=== PATIENT | male | born 1950 | race African-American/Black ===

== ENCOUNTER 2017-09-27 07:51 | Emergency (ER) | payer OTHER ==
[2017-09-27 08:05] VITALS: TEMP 99.1; BMI 38.4
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
[2017-09-27] MEDS ORDERED: SODIUM CHLORIDE 1,000 ML IV ONE (09:32)
[2017-09-27] MEDS ORDERED: MECLIZINE HCL 25 MG TABLET (FP) PO ONE (09:43)
[2017-09-27] MEDS ORDERED: ONDANSETRON 4 MG/2 ML VIAL IVPB ONE (09:43)
[2017-09-27] MEDS ORDERED: ONDANSETRON 4 MG/2 ML VIAL ONE (10:08)
[2017-09-27] MEDS ORDERED: MECLIZINE HCL 25 MG TABLET (FP) ONE (10:08)
[2017-09-27 10:20] LABS: BASO % 0.8 % (0-2.0); EOS % 0.7 % (0-4.5); HEMATOCRIT 38.2 % (35.4-49); HEMOGLOBIN 13.3 GM/dL (11.7-16.9); LYMPH % 22.5 % (8-40); MCH 30.4 pg (25.7-33.7); MCHC 34.8 g/dl (32.0-35.9); MEAN CELL VOLUME 87.4 fl (80-96); MEAN PLT VOLUME 7.5 fl (7.5-11.1); PLATELET COUNT 250 K/MM3 (134-434); RBC 4.37 M/mm3 (4.00-5.60); RDW 17.3 % (11.9-15.9); WHITE BLOOD COUNT 6.8 K/mm3 (4.0-10.0)
[2017-09-27 10:23] LABS: URINE APPEARANCE CLEAR; URINE BILIRUBIN NEGATIVE (<2.0 mg/dL); URINE COLOR LTYELLOW; URINE GLUCOSE (UA) NEGATIVE (NEGATIVE); URINE KETONE NEGATIVE (NEGATIVE); URINE LEUK ESTERASE TRACE (NEGATIVE); URINE NITRITE NEGATIVE (NEGATIVE); URINE PROTEIN NEGATIVE (NEGATIVE); URINE UROBILINOGEN NEGATIVE mg/dL (0.2-1.0)
[2017-09-27 10:40] LABS: ANION GAP 7 (8-16); BILIRUBIN,TOTAL 0.5 mg/dL (0.2-1.0); BLOOD UREA NITROGEN 15 mg/dL (7-18); CALCIUM 8.9 mg/dL (8.5-10.1); CHLORIDE 94 mmol/L (98-107); CO2 32 mmol/L (21-32); CREATININE 1.2 mg/dL (0.7-1.3); GLUCOSE,RANDOM 138 mg/dL (74-106); SGPT/ALT 32 U/L (12-78); SODIUM 133 mmol/L (136-145); TOT PROT 8.5 g/dl (6.4-8.2)
[2017-09-27 10:43] LABS: ALK PHOS 103 U/L (45-117)
[2017-09-27 10:47] LABS: SGOT/AST 36 U/L (15-37)
[2017-09-27 14:01] VITALS: BP 151/88; PULSE 74
--- NOTE | 2017-09-28 09:07 | EKG ---
Test Reason : Blood Pressure : / mmHG Vent. Rate : 071 BPM Atrial Rate : 071 BPM P-R Int : 198 ms QRS Dur : 086 ms QT Int : 410 ms P-R-T Axes : 039 102 072 degrees QTc Int : 445 ms NORMAL SINUS RHYTHM RIGHTWARD AXIS BORDERLINE ECG WHEN COMPARED WITH ECG OF 28-MAY-2014 14:50, NO SIGNIFICANT CHANGE WAS FOUND Confirmed by CARLOS HAMLIN MD ([id number]) on 09/28/2017 9:07:12 AM Referred By: Confirmed By:CARLOS HAMLIN MD
== END 2017-09-27 14:13 | disposition home or self-care (01) ==
LOC: JER 07:51
PROC: 3E033GC Introduction of Other Therapeutic Substance into Peripheral Vein, Percutaneous Approach (ICD-10-PCS; principal; 2017-09-27)
PROC: 3E0337Z Introduction of Electrolytic and Water Balance Substance into Peripheral Vein, Percutaneous Approach (ICD-10-PCS; 2017-09-27)
DX: R42 Dizziness and giddiness (principal); I10 Essential (primary) hypertension; E78.5 Hyperlipidemia, unspecified; N40.0 Benign prostatic hyperplasia without lower urinary tract symptoms; B18.2 Chronic viral hepatitis C; F32.9 Major depressive disorder, single episode, unspecified; D64.9 Anemia, unspecified; J45.909 Unspecified asthma, uncomplicated; E11.9 Type 2 diabetes mellitus without complications; K74.60 Unspecified cirrhosis of liver; F17.210 Nicotine dependence, cigarettes, uncomplicated
CPT/HCPCS: 36415; 70450-TC; 71045-TC-FY; 80053; 81003; 81015; 82550; 82553; 82962; 84484; 85025; 93005; 93010; 99283-25; J7030

== ENCOUNTER 2017-11-09 07:58 | Inpatient (IN) | payer OTHER ==
[2017-11-09 08:13] VITALS: BMI 37.8
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
[2017-11-09] MEDS ORDERED: SODIUM CHLORIDE 0.9% 500 ML INFUS.BAG IV ONE (09:23)
[2017-11-09 10:09] LABS: BASO % 0.9 % (0-2.0); HEMATOCRIT 36.7 % (35.4-49); HEMOGLOBIN 12.3 GM/dL (11.7-16.9); LYMPH % 21.3 % (8-40); MCH 29.8 pg (25.7-33.7); MCHC 33.6 g/dl (32.0-35.9); MEAN CELL VOLUME 88.7 fl (80-96); MEAN PLT VOLUME 7.2 fl (7.5-11.1); MONO % 4.7 % (3.8-10.2); NEUT % 72.1 % (42.8-82.8); PLATELET COUNT 221 K/MM3 (134-434); RBC 4.14 M/mm3 (4.00-5.60); RDW 14.4 % (11.9-15.9); WHITE BLOOD COUNT 6.2 K/mm3 (4.0-10.0)
--- NOTE | 2017-11-09 10:19 | PDOC ---
Attending Attestation - Resident Resident Name: Richmond Andrews - ED Attending Attestation I have performed the following: I have examined & evaluated the patient, The case was reviewed & discussed with the resident, I agree w/resident's findings & plan - HPI HPI: 11/09/17 10:16 [place] 67 year old male, with a significant PMH of hypertension, hyperlipidemia , BPH, hepatitis C, and depression who presents to the emergency department with lightheadedness and dizziness since yesterday. +intermittent hand paresthesias. Has missed his doses of medications including unknown antihypertensives and blood thinner and dilaudid x 2 days since he ran out and pharmacy closed. Noted his blood pressure was high when he measured this morning. Denies cp/sob, weakness. No neck or back pain, no fever or chills or gait instability. No abd pain, n/v/d. 11/09/17 11:31 - Physicial Exam PE: 11/09/17 10:16 NAD, well appearing, MMM, nl conjunctiva, anicteric; neck supple, no JVD or carotid bruit. lungs clear, RRR, abdomen soft nontender. TOTH x4. No peripheral edema. normal color for ethnicity, WWP. Alert, oriented to person time and place. CN II-XII grossly intact. Strength prox and distally 5/5 throughout. decreased sensation to light touch over right hand. TOTH x4. No cerebellar signs, no dysmetria, bilateral finger to nose equal and symmetric. Gait stable, no ataxia. Speech clear. 11/09/17 11:31 - Medical Decision Making 11/09/17 10:17 [place] 67 year old male, with a significant PMH of hypertension, hyperlipidemia , BPH, hepatitis C, and depression who presents to the emergency department with lightheadedness and dizziness since yesterday. Has missed his doses of medications including unknown antihypertensives and blood thinner and dilaudid x 2 days since he ran out and pharmacy closed. Noted his blood pressure was high when he measured this morning. vitals wnl, mild hypertension but relatively asymptomatic. BP mild elevation and dizziness/lightheadedness most consistent with poor eating habits and poor hydration, also missed his usual medications x 2 days including antihypertensive regimen. sx not c/w vertigo, no focal neuro deficits and stable gait w/o ataxia. labs and lytes wnl, trop neg. coags wnl. EKG normal sinus rhythm, no interval abnormalities, narrow QRS, ST and T wave segments and morphology normal. Nonspecific T wave abnormalities in AVL, no contiguous lead changes. CT head neg for bleed, +lacunar infarcts present, new from prior CT scan from 2017. smoking cessation advised, but does sneak outside to smoke despite otherwise noted. admit for neuro eval with sx, stroke/telemetry monitoring, medical management, inpatient workup including MRI/MRA and BP management given poor compliance.. admit to Dr. Arellano service, neuro cs with Dr dias. 11/09/17 11:32 Heart Score/ECG Review - ECG Impressions Comment:: 11/09/17 11:32 EKG normal sinus rhythm, no interval abnormalities, narrow QRS, ST and T wave segments and morphology normal. Nonspecific T wave abnormalities in AVL, no contiguous lead changes.
[2017-11-09 10:28] LABS: INR 1.11 (0.83-1.09); PROTHROMBIN TIME (PATIENT) 12.5 SEC (9.7-13.0)
[2017-11-09 10:31] LABS: ACTIVATED PTT 30.1 SECONDS (25.2-36.5)
[2017-11-09 10:43] LABS: ALBUMIN 3.6 g/dl (3.4-5.0); ALK PHOS 106 U/L (45-117); ANION GAP 9 MMOL/L (8-16); BILIRUBIN,TOTAL 0.5 mg/dL (0.2-1); BLOOD UREA NITROGEN 13 mg/dL (7-18); CALCIUM 8.3 mg/dL (8.5-10.1); CHLORIDE 99 mmol/L (98-107); CO2 26 mmol/L (21-32); CREATININE 1.2 mg/dL (0.55-1.3); GLUCOSE,RANDOM 223 mg/dL (74-106); POTASSIUM 4.8 mmol/L (3.5-5.1); SGOT/AST 37 U/L (15-37); SGPT/ALT 36 U/L (13-61); SODIUM 135 mmol/L (136-145); TOT PROT 7.8 g/dl (6.4-8.2)
[2017-11-09] MEDS ORDERED: QUEtiapine FUMARATE 300 MG TABLET PO ONE (10:54)
[2017-11-09] MEDS ORDERED: metFORMIN HCL 500 MG TABLET (FP) PO ONE (10:54)
[2017-11-09] MEDS ORDERED: LOSARTAN POTASSIUM 50 MG TABLET (FP) PO ONE (10:55)
[2017-11-09] MEDS ORDERED: ATORVASTATIN CA 20 MG TABLET (FP) PO ONE (10:55)
[2017-11-09 11:09] LABS: URINE APPEARANCE CLEAR; URINE BILIRUBIN NEGATIVE (<2.0 mg/dL); URINE COLOR LTYELLOW; URINE GLUCOSE (UA) NEGATIVE (NEGATIVE); URINE KETONE NEGATIVE (NEGATIVE); URINE LEUK ESTERASE TRACE (NEGATIVE); URINE NITRITE NEGATIVE (NEGATIVE); URINE PROTEIN NEGATIVE (NEGATIVE); URINE UROBILINOGEN NEGATIVE mg/dL (0.2-1.0)
[2017-11-09] MEDS ORDERED: ASPIRIN 325 MG TABLET PO ONE (11:15)
[2017-11-09] MEDS ORDERED: ASPIRIN 325 MG TABLET ONE (11:23)
--- NOTE | 2017-11-09 12:19 | CON.NEURO ---
Consult Consult Specialty:: [facility] Referred by:: ED - History of Present Illness History of Present Illness: Dizziness 67 man with PMH CAd DM Smoker hypertension, hyperlipidemia, BPH, hepatitis C, depression presented with dizziness and fall Seen in [facility] Er Not TPA candidate I saw [facility] patient on [facility] Tele Alert awake Ate lunch ?? slurring - History Source History Provided By: Patient, Medical Record Limitations to Obtaining History: No Limitations - Past Medical History Gastrointestinal: Yes: GI Bleed, Peptic Ulcer Disease Psych: Yes: Depression, Other (alcoholism) - Alcohol/Substance Use Hx Alcohol Use: No - Smoking History Smoking history: Current every day smoker Have you smoked in the past 12 months: Yes Aproximately how many cigarettes per day: 5 - Social History Usual Living Arrangement: Alone ADL: Independent Occupation: halfway retired History of Recent Travel: No Home Medications - Allergies Allergies/Adverse Reactions: Allergies Allergy/AdvReac Type Severity Reaction Status Date / Time No Known Allergies Allergy Verified 11/09/17 08:08 - Home Medications Home Medications: Ambulatory Orders Atorvastatin Ca [Lipitor] 20 mg PO HS 05/28/14 Docusate Sodium [Colace -] 100 mg PO TID 05/28/14 Quetiapine Fumarate [Seroquel -] 300 mg PO DAILY 05/28/14 Losartan Potassium [Cozaar -] 50 mg PO DAILY #30 tablet 06/30/14 Meclizine HCl [Antivert -] 25 mg PO TID PRN #15 tablet 09/27/17 Terazosin HCl [Hytrin] 5 mg PO HS 09/27/17 metFORMIN HCL [Glucophage -] 500 mg PO BID 09/27/17 Family Disease History - Family Disease History Family Disease History: Diabetes: Father ( of diabetes at age 60), Mother ( old age 99), Respiratory: Brother (asthma) Review of Systems - Review of Systems Constitutional: reports: No Symptoms Eyes: reports: No Symptoms Physical Exam-Neuro Vital Signs: Vital Signs Temperature 98.4 F 11/09/17 11:25 Pulse Rate 65 11/09/17 11:25 Respiratory Rate 18 11/09/17 11:25 Blood Pressure 143/80 11/09/17 11:25 O2 Sat by Pulse Oximetry (%) 95 11/09/17 11:25 Constitutional: Yes: Well Nourished Neck: Yes: WNL Labs: CBC, BMP 11/09/17 10:00 11/09/17 10:00 INR, PTT INR 1.11 (0.83-1.09) H 11/09/17 10:00 - Neuro Exam Level Of Consciousness: Yes: Oriented to Person, Oriented to Place, Oriented to Time Eyes: Yes: PERRLA Speech: WNL Dominant Hand: Right Cranial Nerves II-XII Intact: Yes Gag: Present DTR's: 1+ Left Bicep, 1+ Right Bicep, 1+ Left Brachioradialis, 1+ Right Brachioradialis Response to light touch: Normal Response to pain prick: Normal Response to temperature: Normal Response to vibration: Normal Motor Strength: 3/5: Left Arm, Right Arm, Left Leg, Right Leg Gait: Deferred Imaging - Results Cat Scan: Image Reviewed Problem List - Problems (1) Stroke Assessment/Plan: Ruloe out Cerbellar CVA 1. Neuro check 2. ASA Antiplatelet 3. Fall precautions 4, Am lipid 5. PT 5. Dysphagia protocol 6. Statin 7. Echo 8. Stroke education: weight loss and smoking cessation 9. SCDs units 10. MRI brain with no Moises I thank you for all you trust in getting me involved in the is patient neurological care Thank you Code(s): I63.9 - CEREBRAL INFARCTION, UNSPECIFIED
[2017-11-09] MEDS ORDERED: QUEtiapine FUMARATE 100 MG TABLET (FP) ONE (12:41)
--- NOTE | 2017-11-09 15:26 | EKG ---
Test Reason : Blood Pressure : / mmHG Vent. Rate : 065 BPM Atrial Rate : 065 BPM P-R Int : 180 ms QRS Dur : 096 ms QT Int : 450 ms P-R-T Axes : 053 090 083 degrees QTc Int : 468 ms NORMAL SINUS RHYTHM RIGHTWARD AXIS BORDERLINE ECG WHEN COMPARED WITH ECG OF 27-SEP-2017 10:05, NO SIGNIFICANT CHANGE WAS FOUND Confirmed by MD Neel, Suhail ([id number]) on 11/09/2017 3:25:54 PM Referred By: Confirmed By:Suhail Shaikh MD
[2017-11-09] MEDS ORDERED: PT OWN MED DRAWER 7, Y5N ONE (20:21)
[2017-11-09] MEDS: TERAZOSIN HCL 5 MG CAPSULE PO SCH (22:06)
[2017-11-09] MEDS: ATORVASTATIN CA 20 MG TABLET (FP) PO SCH (22:07)
[2017-11-09] MEDS ORDERED: MELATONIN 5 MG TABLETS PO ONE (23:24)
--- NOTE | 2017-11-10 01:20 | HP ---
Admitting History and Physical - Admission History of Present Illness: Pt seen and examined on 11/09/17 Pt is a 67 year old male, with a significant PMH of hypertension, hyperlipidemia , BPH, hepatitis C, PUD and depression who presents to the emergency department with lightheadedness and dizziness since yesterday. Pt also had intermittent hand paresthesias. Has missed his doses of medications including unknown antihypertensives, diabetic meds and blood thinner. In the ER pt found to have acute infarct on ct scan head. 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 History of Recent Travel: No Home Medications - Allergies Allergies/Adverse Reactions: Allergies Allergy/AdvReac Type Severity Reaction Status Date / Time No Known Allergies Allergy Verified 11/09/17 08:08 - Home Medications Home Medications: Ambulatory Orders Atorvastatin Ca [Lipitor] 20 mg PO HS 05/28/14 Docusate Sodium [Colace -] 100 mg PO TID 05/28/14 Quetiapine Fumarate [Seroquel -] 300 mg PO HS 05/28/14 Losartan Potassium [Cozaar -] 50 mg PO DAILY #30 tablet 06/30/14 Meclizine HCl [Antivert -] 25 mg PO TID PRN #15 tablet 09/27/17 Terazosin HCl [Hytrin] 5 mg PO HS 09/27/17 metFORMIN HCL [Glucophage -] 500 mg PO BID 09/27/17 Family Disease History - Family Disease History Family History: Unremarkable Family Disease History: Diabetes: Father ( of diabetes at age 60), Mother ( old age 99), Respiratory: Brother (asthma) Review of Systems - Review of Systems Constitutional: reports: No Symptoms HENT: reports: No Symptoms Neck: reports: No Symptoms Cardiovascular: reports: No Symptoms Respiratory: reports: No Symptoms Gastrointestinal: reports: No Symptoms Physical Examination Vital Signs: Vital Signs Temperature 98.1 F 11/09/17 22:00 Pulse Rate 59 L 11/09/17 22:00 Respiratory Rate 20 11/09/17 22:00 Blood Pressure 157/97 11/09/17 22:00 O2 Sat by Pulse Oximetry (%) 95 11/09/17 20:51 Constitutional: Yes: Well Nourished HENT: Yes: WNL Neck: Yes: WNL, Supple Cardiovascular: Yes: WNL, Regular Rate and Rhythm Respiratory: Yes: WNL, Regular, CTA Bilaterally Gastrointestinal: Yes: WNL, Normal Bowel Sounds, Soft Musculoskeletal: Yes: WNL Extremities: Yes: WNL Edema: No Neurological: Yes: WNL, Alert, Oriented ...Motor Strength: WNL Labs: CBC, BMP 11/09/17 10:00 11/09/17 10:00 Problem List - Problems (1) CVA (cerebral vascular accident) Assessment/Plan: Admitted to tele Check echo/carotid doppler/MRI brain Cont asa/statin Monitor BP Neuro/cardio consults Code(s): I63.9 - CEREBRAL INFARCTION, UNSPECIFIED (2) Hypercholesterolemia Code(s): E78.0 - PURE HYPERCHOLESTEROLEMIA * DO NOT USE * (3) DM Diabetes mellitus type 2 Assessment/Plan: Cont metformin and sliding scale w/ coverage Check HgA1c Code(s): E11.9 - TYPE 2 DIABETES MELLITUS WITHOUT COMPLICATIONS (4) Essential hypertension Assessment/Plan: Allow slight permissiveness in BP due to CVA Cont antihypertensives Check echo Cardio consult Code(s): I10 - ESSENTIAL (PRIMARY) HYPERTENSION (5) Hepatitis C Code(s): B19.20 - UNSPECIFIED VIRAL HEPATITIS C WITHOUT HEPATIC COMA (6) Anemia Code(s): D64.9 - ANEMIA, UNSPECIFIED Qualifiers: Anemia type: iron deficiency anemia due to chronic blood loss Qualified Code(s): D50.0 - Iron deficiency anemia secondary to blood loss (chronic) (7) Depression Code(s): F32.9 - MAJOR DEPRESSIVE DISORDER, SINGLE EPISODE, UNSPECIFIED
[2017-11-10] MEDS: metFORMIN HCL 500 MG TABLET (FP) PO SCH ×2 (06:10→16:37)
[2017-11-10] MEDS: DOCUSATE SODIUM 100 MG CAPSULE (FP) PO SCH ×3 (06:10→21:01)
[2017-11-10] MEDS: INSULIN SLIDING SCALE (NOVOLOG) 1 VIAL SQ SCH ×4 (06:11→22:28)
[2017-11-10 07:51] LABS: BASO % 0.6 % (0-2.0); EOS % 3.4 % (0-4.5); HEMATOCRIT 35.1 % (35.4-49); HEMOGLOBIN 11.8 GM/dL (11.7-16.9); LYMPH % 36.9 % (8-40); MCH 30.4 pg (25.7-33.7); MCHC 33.8 g/dl (32.0-35.9); MEAN CELL VOLUME 90.1 fl (80-96); MEAN PLT VOLUME 7.2 fl (7.5-11.1); MONO % 8.2 % (3.8-10.2); NEUT % 50.9 % (42.8-82.8); PLATELET COUNT 205 K/MM3 (134-434); RDW 14.8 % (11.9-15.9); WHITE BLOOD COUNT 5.8 K/mm3 (4.0-10.0)
--- NOTE | 2017-11-10 08:29 | CON.CARD ---
Consult Consult Specialty:: Cardiology Referred by:: Dr. Arellano Reason for Consultation:: CVA - History of Present Illness Chief Complaint: Dizziness History of Present Illness: 67 year old male with past medical history significant for hypertension, hyperlipidemia, active tobacco use presents with dizziness and fall found to have an acute left basal ganglia infarct. Patient states he was in his usual state of health until yesterday while sitting he felt onset of dizziness while in bed. He states he checked his blood sugar and it was very high which prompted him to come the the emergency department. Denies any lh, dizziness, syncope, chest pain, palpitations prior to and during the event. He states he rides his bicycle up[place] for approximately 15-20 minutes daily without chest pain or palpitations. No weakness in hands or extremities. Denies any loss of urinary or bowel incontinence. Continues to smoke 5 cigarettes daily, on methadone for prior heroin use (last use 8 years ago) and denies alcohol use. No history of an abnormal heart rhythm or atrial fibrillation. 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 History of Recent Travel: No Home Medications - Allergies Allergies/Adverse Reactions: Allergies Allergy/AdvReac Type Severity Reaction Status Date / Time No Known Allergies Allergy Verified 11/09/17 08:08 - Home Medications Home Medications: Ambulatory Orders Atorvastatin Ca [Lipitor] 20 mg PO HS 05/28/14 Docusate Sodium [Colace -] 100 mg PO TID 05/28/14 Quetiapine Fumarate [Seroquel -] 300 mg PO HS 05/28/14 Losartan Potassium [Cozaar -] 50 mg PO DAILY #30 tablet 06/30/14 Meclizine HCl [Antivert -] 25 mg PO TID PRN #15 tablet 09/27/17 Terazosin HCl [Hytrin] 5 mg PO HS 09/27/17 metFORMIN HCL [Glucophage -] 500 mg PO BID 09/27/17 Family Disease History - Family Disease History Family Disease History: Diabetes: Father ( of diabetes at age 60), Mother ( old age 99), Respiratory: Brother (asthma) Vital Signs: Vital Signs Temperature 97.7 F 11/10/17 06:00 Pulse Rate 65 11/10/17 06:00 Respiratory Rate 20 11/10/17 06:00 Blood Pressure 142/77 11/10/17 06:00 O2 Sat by Pulse Oximetry (%) 95 11/09/17 20:51 Constitutional: Yes: No Distress HENT: Yes: Atraumatic, Normocephalic Respiratory: Yes: WNL, Regular Cardiovascular: Yes: WNL, Regular Rate and Rhythm, Other (no carotid bruits.) JVD: No PMI: Non-Displaced Heart Sounds: Yes: S1, S2 Extremities: Yes: WNL Edema: No - Other Data Labs, Other Data: INR, PTT INR 1.11 (0.83-1.09) H 11/09/17 10:00 Troponin, BNP 11/09/17 10:00 Troponin I < 0.02 Troponin, BNP 11/09/17 10:00 Troponin I < 0.02 Echo: Pending Assessment/Plan 67 year old male with past medical history of diabetes, hypertension, hyperlipidemia presents with dizziness found to have acute left basal ganglia infarct- cardiology consulted for management. #CVA Etiology: unclear Workup: --ECG: normal sinus rhythm with right axis deviation --Telemetry: no evidence of atrial fibrillation, 2 isolated PVCs --Echocardiogram pending --consider carotid imaging if not recommended by neurology colleagues --consider BULMARO during hospitalization --consider 30 day event monitor on discharge to assess for atrial fibrillation --lipids pending, review of lipids from 08/2017 with LDL 69/HDL 33, TG 226 Treatment: --increase atorvastatin 20 to 40mg (high intensity statin warranted in setting of CVA/DM) --continue aspirin and appreciate neurology recommendations regarding anti- platelet agent for CVA --extensively discussed lifestyle changes including smoking cessation, exercise , weight reduction, and a Mediterranean style diet #HTN; continue losartan 50mg qday --management of HTN per neurology (from cardiac standpoint fine to allow for permissive hypertension in setting of CVA) #HL: as above, increase atorvastatin 20mg to 40mg Thank you for this interesting consult, we will continue to follow. Prabhakar Mendez MD
[2017-11-10 09:03] LABS: ALBUMIN 3.2 g/dl (3.4-5.0); ALK PHOS 92 U/L (45-117); ANION GAP 8 MMOL/L (8-16); BILIRUBIN,TOTAL 0.4 mg/dL (0.2-1); BLOOD UREA NITROGEN 16 mg/dL (7-18); CALCIUM 8.7 mg/dL (8.5-10.1); CHLORIDE 103 mmol/L (98-107); CHOLESTEROL 113 mg/dL (50-200); CO2 29 mmol/L (21-32); GLUCOSE,RANDOM 114 mg/dL (74-106); HDL CHOLESTEROL 35 mg/dL (40-60); POTASSIUM 4.5 mmol/L (3.5-5.1); SGOT/AST 21 U/L (15-37); SGPT/ALT 30 U/L (13-61); SODIUM 139 mmol/L (136-145); TOT PROT 7.1 g/dl (6.4-8.2); TRIGLYCERIDES 116 mg/dL (0-150)
[2017-11-10] MEDS ORDERED: METHADONE HCL 10 MG TABLET PO ONE (09:54)
[2017-11-10] MEDS: ASPIRIN 325 MG TABLET PO SCH (10:14)
[2017-11-10] MEDS: LOSARTAN POTASSIUM 50 MG TABLET (FP) PO SCH (10:14)
[2017-11-10] MEDS: HEPARIN NA (PORCINE) 5,000 UNITS/ML 1ML VIAL SQ SCH ×2 (10:14→21:02)
[2017-11-10] MEDS ORDERED: METHADONE 80 MG, METHADONE 30 MG PO ONE (10:15)
--- NOTE | 2017-11-10 19:57 | PN ---
Progress Note, Physician History of Present Illness: 67 yo m pmh of a stroke, hypertension, hyperlipidemia, BPH, hepatitis C, and depression is here with lightheadedness since last night. He says that he was riding his bike and afterwards he started feeling dizzy at home. He was not able to sleep last night because of the dizziness and then when he awoke this morning he was extremely lightheaded in the shower, and fell down. He says he landed on his Right knee, did not hit his head or experience any LOC. He denies currently taking any blood thinners. He endorses occasional black spots in his vision. - Current Medication List Current Medications: Active Medications Aspirin (Asa -) 325 mg PO DAILY [facility] Last Admin: 11/10/17 10:14 Dose: 325 mg Atorvastatin Calcium (Lipitor -) 20 mg PO [facility] Last Admin: 11/09/17 22:07 Dose: 20 mg Docusate Sodium (Colace -) 100 mg PO TID [facility] Last Admin: 11/10/17 13:50 Dose: 100 mg Heparin Sodium (Porcine) (Heparin -) 5,000 unit SQ BID [facility] Last Admin: 11/10/17 10:14 Dose: 5,000 unit Insulin Aspart (Novolog Vial Sliding Scale -) 1 vial SQ [facility]; Protocol Last Admin: 11/10/17 16:37 Dose: Not Given Losartan Potassium (Cozaar -) 50 mg PO DAILY [facility] Last Admin: 11/10/17 10:14 Dose: 50 mg Metformin HCl (Glucophage -) 500 mg PO BIDAC [facility] Last Admin: 11/10/17 16:37 Dose: 500 mg Terazosin HCl (Hytrin -) 5 mg PO [facility] Last Admin: 11/09/17 22:06 Dose: 5 mg - Objective Vital Signs: Vital Signs Temperature 97.6 F 11/10/17 15:41 Pulse Rate 65 11/10/17 15:41 Respiratory Rate 20 11/10/17 15:41 Blood Pressure 161/72 11/10/17 15:41 O2 Sat by Pulse Oximetry (%) 95 11/10/17 09:00 Constitutional: Yes: No Distress HENT: Yes: Atraumatic Neck: Yes: Supple Cardiovascular: Yes: Regular Rate and Rhythm Respiratory: Yes: CTA Bilaterally Gastrointestinal: Yes: Normal Bowel Sounds Extremities: Yes: WNL Neurological: Yes: Alert, Oriented Labs: CBC, BMP 11/10/17 06:00 11/10/17 06:00 INR, PTT INR 1.11 (0.83-1.09) H 11/09/17 10:00 Problem List - Problems (1) Lacunar infarction Code(s): I63.9 - CEREBRAL INFARCTION, UNSPECIFIED (2) Hypercholesterolemia Code(s): E78.0 - PURE HYPERCHOLESTEROLEMIA * DO NOT USE * (3) Methadone maintenance therapy patient Code(s): F11.20 - OPIOID DEPENDENCE, UNCOMPLICATED (4) Opioid dependence Code(s): F11.20 - OPIOID DEPENDENCE, UNCOMPLICATED (5) DM Diabetes mellitus type 2 Assessment/Plan: ON MEDS MONITOR Code(s): E11.9 - TYPE 2 DIABETES MELLITUS WITHOUT COMPLICATIONS (6) Essential hypertension Code(s): I10 - ESSENTIAL (PRIMARY) HYPERTENSION (7) Hepatitis C Code(s): B19.20 - UNSPECIFIED VIRAL HEPATITIS C WITHOUT HEPATIC COMA (8) Mood disorder Code(s): F39 - UNSPECIFIED MOOD [AFFECTIVE] DISORDER (9) Nicotine dependence Code(s): F17.200 - NICOTINE DEPENDENCE, UNSPECIFIED, UNCOMPLICATED Assessment/Plan CONTINUE CURRENT MED PT EVAL
--- NOTE | 2017-11-10 20:21 | PN ---
Progress Note, Physician History of Present Illness: Events noted chart reviewed patient seen on telemetry alert awake oriented no chest pain or palpitation a diarrhea and constipation no dizziness patient had a bowel movement. Patient had an MRI of the brain which revealed no evidence of acute pathology. - Current Medication List Current Medications: Active Medications Aspirin (Asa -) 325 mg PO DAILY [facility] Last Admin: 11/10/17 10:14 Dose: 325 mg Atorvastatin Calcium (Lipitor -) 20 mg PO HS [facility] Last Admin: 11/09/17 22:07 Dose: 20 mg Docusate Sodium (Colace -) 100 mg PO TID [facility] Last Admin: 11/10/17 13:50 Dose: 100 mg Heparin Sodium (Porcine) (Heparin -) 5,000 unit SQ BID [facility] Last Admin: 11/10/17 10:14 Dose: 5,000 unit Insulin Aspart (Novolog Vial Sliding Scale -) 1 vial SQ [facility]; Protocol Last Admin: 11/10/17 16:37 Dose: Not Given Losartan Potassium (Cozaar -) 50 mg PO DAILY [facility] Last Admin: 11/10/17 10:14 Dose: 50 mg Metformin HCl (Glucophage -) 500 mg PO BIDAC [facility] Last Admin: 11/10/17 16:37 Dose: 500 mg Terazosin HCl (Hytrin -) 5 mg PO HS [facility] Last Admin: 11/09/17 22:06 Dose: 5 mg - Objective Vital Signs: Vital Signs Temperature 97.6 F 11/10/17 15:41 Pulse Rate 65 11/10/17 15:41 Respiratory Rate 20 11/10/17 15:41 Blood Pressure 161/72 11/10/17 15:41 O2 Sat by Pulse Oximetry (%) 95 11/10/17 09:00 Constitutional: Yes: Well Nourished Eyes: Yes: WNL Neurological: Yes: Alert, Oriented, Babinski negative ...Motor Strength: WNL Labs: CBC, BMP 11/10/17 06:00 11/10/17 06:00 INR, PTT INR 1.11 (0.83-1.09) H 11/09/17 10:00 Problem List - Problems (1) Stroke Assessment/Plan: no evidence of acute stroke on the MRI 1. Patient to be transferred to [facility] floor 2. Follow-up the results of the carotid Doppler 3. Weight loss was advised 4. Physical therapy 5. Fall precautions Code(s): I63.9 - CEREBRAL INFARCTION, UNSPECIFIED
[2017-11-10] MEDS ORDERED: QUEtiapine FUMARATE 100 MG TABLET (FP) PO ONE (20:30)
[2017-11-10] MEDS ORDERED: PT OWN MED DRAWER 7, Y5N ONE (20:41)
[2017-11-10] MEDS: TERAZOSIN HCL 5 MG CAPSULE PO SCH (21:01)
[2017-11-10] MEDS: ATORVASTATIN CA 20 MG TABLET (FP) PO SCH (21:01)
[2017-11-11] MEDS ORDERED: METHADONE HCL 10 MG TABLET PO SCH (06:00)
[2017-11-11] MEDS: metFORMIN HCL 500 MG TABLET (FP) PO SCH ×2 (07:14→17:33)
[2017-11-11] MEDS: DOCUSATE SODIUM 100 MG CAPSULE (FP) PO SCH ×3 (07:15→21:26)
[2017-11-11] MEDS: INSULIN SLIDING SCALE (NOVOLOG) 1 VIAL SQ SCH ×4 (07:15→21:27)
[2017-11-11] MEDS ORDERED: METHADONE HCL 10 MG TABLET ONE (07:38)
[2017-11-11] MEDS ORDERED: METHADONE HCL 40 MG DISPERSABLE TABLET ONE (07:38)
[2017-11-11] MEDS: METHADONE 80 MG, METHADONE 30 MG PO SCH (07:43)
--- NOTE | 2017-11-11 08:55 | PN ---
Progress Note, Physician Chief Complaint: TELE: NSR, no afib Carotid possible 50-70% ADI stenosis - Current Medication List Current Medications: Active Medications Aspirin (Asa -) 325 mg PO DAILY [facility] Last Admin: 11/10/17 10:14 Dose: 325 mg Atorvastatin Calcium (Lipitor -) 20 mg PO HS [facility] Last Admin: 11/10/17 21:01 Dose: 20 mg Docusate Sodium (Colace -) 100 mg PO TID [facility] Last Admin: 11/11/17 07:15 Dose: 100 mg Heparin Sodium (Porcine) (Heparin -) 5,000 unit SQ BID [facility] Last Admin: 11/10/17 21:02 Dose: 5,000 unit Insulin Aspart (Novolog Vial Sliding Scale -) 1 vial SQ [facility]; Protocol Last Admin: 11/11/17 07:15 Dose: Not Given Losartan Potassium (Cozaar -) 50 mg PO DAILY [facility] Last Admin: 11/10/17 10:14 Dose: 50 mg Metformin HCl (Glucophage -) 1,000 mg PO BID@0700,1630 [facility] Last Admin: 11/11/17 07:14 Dose: 1,000 mg Methadone HCl 80 mg/ Methadone (HCl 30 mg) 110 mg PO DAILY@0600 [facility] Last Admin: 11/11/17 07:43 Dose: 110 mg Quetiapine Fumarate (Seroquel -) 300 mg PO [facility] Terazosin HCl (Hytrin -) 5 mg PO [facility] Last Admin: 11/10/17 21:01 Dose: 5 mg - Objective Vital Signs: Vital Signs Temperature 98.0 F 11/11/17 06:00 Pulse Rate 74 11/11/17 06:00 Respiratory Rate 20 11/11/17 06:00 Blood Pressure 151/72 11/11/17 06:00 O2 Sat by Pulse Oximetry (%) 95 11/10/17 21:00 Constitutional: Yes: No Distress, Moderate Distress Eyes: Yes: Conjunctiva Clear Cardiovascular: Yes: Bruit Respiratory: Yes: CTA Bilaterally Gastrointestinal: Yes: Soft Edema: No Neurological: Yes: Alert ...Motor Strength: WNL Labs: CBC, BMP 11/10/17 06:00 11/10/17 06:00 INR, PTT INR 1.11 (0.83-1.09) H 11/09/17 10:00 Laboratory Tests 09/23/18 06:00 WBC 5.8 Hgb 11.8 Plt Count 205 - ....Imaging EKG: Image Reviewed Assessment/Plan Assessment/Plan 67 year old male with past medical history of diabetes, hypertension, hyperlipidemia presents with dizziness found to have acute left basal ganglia infarct- cardiology consulted for management. #CVA Etiology: unclear Workup: --Telemetry: no evidence of atrial fibrillation --Echocardiogram pending --carotid US with right moderate carotid stenosis, opposite the side of the infarct. --consider 30 day event monitor on discharge to assess for atrial fibrillation --lipids pending, review of lipids from 08/2017 with LDL 69/HDL 33, TG 226 Treatment: --Cont statin --continue aspirin and appreciate neurology recommendations regarding anti- platelet agent for CVA --extensively discussed lifestyle changes including smoking cessation, exercise , weight reduction, and a Mediterranean style diet #HTN; continue losartan 50mg qday --management of HTN per neurology (from cardiac standpoint fine to allow for permissive hypertension in setting of CVA) #HL: as above, increase atorvastatin 20mg to 40mg
[2017-11-11] MEDS: HEPARIN NA (PORCINE) 5,000 UNITS/ML 1ML VIAL SQ SCH ×2 (09:43→21:26)
[2017-11-11] MEDS: LOSARTAN POTASSIUM 50 MG TABLET (FP) PO SCH (09:43)
[2017-11-11] MEDS: ASPIRIN 325 MG TABLET PO SCH (09:43)
--- NOTE | 2017-11-11 18:19 | ECHO ---
Name: FABY DIAZ Exam:Adult Echocardiogram Study Date: 11/11/2017 10:09 AM Age: 67 yrs Reason For Study: CVA Height: 69 in Weight: 260 lb BSA: 2.3 m2 MMode/2D Measurements & Calculations IVSd: 1.1 cm Ao root diam: 4.1 cm LVIDd: 5.3 cm LA dimension: 3.0 cm LVIDs: 3.4 cm ACS: 2.0 cm LVPWd: 1.0 cm IVSs: 1.2 cm LVPWs: 1.3 cm EDV(Teich): 137.4 ml ESV(Teich): 48.4 ml Doppler Measurements & Calculations MV E max vitaliy: 73.5 cm/sec Ao V2 max: 106.7 cm/sec MV A max vitaliy: 85.9 cm/sec Ao max P.6 mmHg MV E/A: 0.86 Ao V2 mean: 80.9 cm/sec Ao mean P.9 mmHg Ao V2 VTI: 22.8 cm TR max vitaliy: 204.8 cm/sec PI end-d vitaliy: 101.8 cm/sec TR max P.8 mmHg Med Peak E' Vitaliy: 6.4 cm/sec Med E/e': 11.6 Lat Peak E' Vitaliy: 9.2 cm/sec Lat E/e': 8.0 Left Ventricle The left ventricular size, thickness and function are normal. Grade I diastolic dysfunction, (abnorma l relaxation pattern). Right Ventricle The right ventricle is normal in size and function. Atria Normal left and right atrial size and function. Mitral Valve The mitral valve is grossly normal. There is mild mitral annular calcification. There is trace mitral regurgitation. Tricuspid Valve The tricuspid valve is not well visualized. There is trace tricuspid regurgitation. Aortic Valve The aortic valve opens well. The aortic valve is trileaflet. Trace aortic regurgitation. Pulmonic Valve The pulmonic valve is not well visualized. Great Vessels Mild aortic root dilatation. Pericardium/Pleura There is no pericardial effusion. Interpretation Summary There is no comparison study available. Trace aortic regurgitation. There is trace mitral regurgitation. Mild aortic root dilatation. The right ventricle is normal in size and function. There is trace tricuspid regurgitation. There is mild mitral annular calcification. The left ventricular size, thickness and function are normal Odilon Hidalgo MD 11/11/2017 06:19 PM
--- NOTE | 2017-11-11 18:33 | CONSULT ---
Consult [facility] Reason for Current Admission/Consult: methadone use - History History of Present Illness: Pt is at [facility] MAT-methadone progran- receiving 110 mg of methadone. Pt states last use of heroin about 5 years ago, when he joined the MAT. Says the dose is adequate. Pt denies using heroinm cocaine, marijuana, alcohol or other illicit substances. Admitted for dizziness and not feeling well- diagnosed with L basal ganglia infarct- pt states feeling fine now. - Alcohol/Substance Use Hx Alcohol Use: No - Past Medical History Cardio/Vascular: Yes: HTN, Hyperlipdemia Gastrointestinal: Yes: GI Bleed, Peptic Ulcer Disease Psych: Yes: Depression, Other (alcoholism) Endocrine: Yes: Diabetes Mellitus COWS - Scale Resting Pulse: 0= DC 80 or Below Sweatin= No chills or Flushing Restless Observation: 0= Sits Still Pupil Size: 0= Normal to Room Light Bone or Joint Aches: 0= None Runny Nose/ Eye Tearin= None GI Upset > 30mins: 0= None Tremor Observation: 0= None Yawning Observation: 0= None Anxiety or Irritability: 0= None Goose Flesh Skin: 0=Smooth Skin (pt on methadone 110mg) COWS Score: 0 Assessment Plan - Diagnosis (1) Opioid dependence Status: Acute Comment: on methadone program [facility] - Plan Plan: Pt doing well post CVA- pt to go home tomorrow- pt will continue with [facility] methadone after discharge. Pt is stable and is not reporting not using other illicit substances.
[2017-11-11] MEDS ORDERED: PT OWN MED DRAWER 7, Y5N ONE (21:12)
[2017-11-11] MEDS ORDERED: QUEtiapine FUMARATE 100 MG TABLET (FP) ONE (21:12)
[2017-11-11] MEDS: ATORVASTATIN CA 20 MG TABLET (FP) PO SCH (21:26)
[2017-11-11] MEDS: TERAZOSIN HCL 5 MG CAPSULE PO SCH (21:26)
--- NOTE | 2017-11-11 21:31 | PN ---
Progress Note, Physician History of Present Illness: No new complaints - Current Medication List Current Medications: Active Medications Aspirin (Asa -) 325 mg PO DAILY [facility] Last Admin: 11/11/17 09:43 Dose: 325 mg Atorvastatin Calcium (Lipitor -) 20 mg PO [facility] Last Admin: 11/11/17 21:26 Dose: 20 mg Docusate Sodium (Colace -) 100 mg PO TID [facility] Last Admin: 11/11/17 21:26 Dose: 100 mg Heparin Sodium (Porcine) (Heparin -) 5,000 unit SQ BID [facility] Last Admin: 11/11/17 21:26 Dose: 5,000 unit Insulin Aspart (Novolog Vial Sliding Scale -) 1 vial SQ [facility]; Protocol Last Admin: 11/11/17 21:27 Dose: Not Given Losartan Potassium (Cozaar -) 50 mg PO DAILY [facility] Last Admin: 11/11/17 09:43 Dose: 50 mg Metformin HCl (Glucophage -) 1,000 mg PO BID@0700,1630 [facility] Last Admin: 11/11/17 17:33 Dose: 1,000 mg Methadone HCl 80 mg/ Methadone (HCl 30 mg) 110 mg PO DAILY@0600 [facility] Last Admin: 11/11/17 07:43 Dose: 110 mg Quetiapine Fumarate (Seroquel -) 300 mg PO [facility] Last Admin: 11/11/17 21:27 Dose: 300 mg Terazosin HCl (Hytrin -) 5 mg PO [facility] Last Admin: 11/11/17 21:26 Dose: 5 mg - Objective Vital Signs: Vital Signs Temperature 98.0 F 11/11/17 16:35 Pulse Rate 63 11/11/17 16:35 Respiratory Rate 18 11/11/17 16:35 Blood Pressure 136/86 11/11/17 16:35 O2 Sat by Pulse Oximetry (%) 95 11/11/17 09:00 Constitutional: Yes: Well Nourished HENT: Yes: WNL Neck: Yes: WNL, Supple Cardiovascular: Yes: WNL, Regular Rate and Rhythm Respiratory: Yes: WNL, Regular, CTA Bilaterally Gastrointestinal: Yes: WNL, Normal Bowel Sounds, Soft Labs: CBC, BMP 11/10/17 06:00 11/10/17 06:00 INR, PTT INR 1.11 (0.83-1.09) H 11/09/17 10:00 Problem List - Problems (1) CVA (cerebral vascular accident) Assessment/Plan: MRI brain showed chronic infarcts As per cardio will need 30 day holter DC planning for am Code(s): I63.9 - CEREBRAL INFARCTION, UNSPECIFIED (2) Hypercholesterolemia Code(s): E78.0 - PURE HYPERCHOLESTEROLEMIA * DO NOT USE * (3) DM Diabetes mellitus type 2 Assessment/Plan: Cont metformin and sliding scale w/ coverage Check HgA1c Code(s): E11.9 - TYPE 2 DIABETES MELLITUS WITHOUT COMPLICATIONS (4) Essential hypertension Assessment/Plan: Allow slight permissiveness in BP due to CVA Cont antihypertensives Check echo Cardio consult Code(s): I10 - ESSENTIAL (PRIMARY) HYPERTENSION (5) Hepatitis C Code(s): B19.20 - UNSPECIFIED VIRAL HEPATITIS C WITHOUT HEPATIC COMA (6) Anemia Code(s): D64.9 - ANEMIA, UNSPECIFIED Qualifiers: Anemia type: iron deficiency anemia due to chronic blood loss (7) Depression Code(s): F32.9 - MAJOR DEPRESSIVE DISORDER, SINGLE EPISODE, UNSPECIFIED
[2017-11-11] MEDS ORDERED: QUEtiapine FUMARATE 300 MG TABLET PO SCH (22:00)
[2017-11-12] MEDS ORDERED: METHADONE HCL 40 MG DISPERSABLE TABLET ONE (06:06)
[2017-11-12] MEDS ORDERED: METHADONE HCL 10 MG TABLET ONE (06:07)
[2017-11-12] MEDS: METHADONE 80 MG, METHADONE 30 MG PO SCH (06:13)
[2017-11-12] MEDS: metFORMIN HCL 500 MG TABLET (FP) PO SCH (06:13)
[2017-11-12] MEDS: DOCUSATE SODIUM 100 MG CAPSULE (FP) PO SCH ×2 (06:14→13:27)
[2017-11-12] MEDS: INSULIN SLIDING SCALE (NOVOLOG) 1 VIAL SQ SCH ×2 (06:15→11:44)
[2017-11-12] MEDS: LOSARTAN POTASSIUM 50 MG TABLET (FP) PO SCH (10:21)
[2017-11-12] MEDS: ASPIRIN 325 MG TABLET PO SCH (10:22)
[2017-11-12] MEDS: HEPARIN NA (PORCINE) 5,000 UNITS/ML 1ML VIAL SQ SCH (10:22)
[2017-11-12 10:25] VITALS: BP 143/78; PULSE 66; TEMP 98.2
== END 2017-11-12 15:49 | disposition home or self-care (01) | DRG 149 ==
LOC: JER 07:58 → JERBED 10:22 → J4S 12:13
PROVIDERS: ADMIT Internal Medicine; ATTEND Internal Medicine
DX: R42 Dizziness and giddiness (principal); F11.20 Opioid dependence, uncomplicated; I10 Essential (primary) hypertension; E78.5 Hyperlipidemia, unspecified; N40.0 Benign prostatic hyperplasia without lower urinary tract symptoms; F32.9 Major depressive disorder, single episode, unspecified; B19.20 Unspecified viral hepatitis C without hepatic coma; Z91.14 Patient's other noncompliance with medication regimen; F17.210 Nicotine dependence, cigarettes, uncomplicated; Z79.84 Long term (current) use of oral hypoglycemic drugs; I25.10 Atherosclerotic heart disease of native coronary artery without angina pectoris; K27.9 Peptic ulcer, site unspecified, unspecified as acute or chronic, without hemorrhage or perforation; D64.9 Anemia, unspecified; F39 Unspecified mood [affective] disorder; E11.9 Type 2 diabetes mellitus without complications
CPT/HCPCS: 36415; 70450-TC; 70551-TC; 80053; 80061; 81003; 81015; 82085; 82607; 82962; 83036; 83090; 83721; 84443; 84484; 85025; 85610; 85651; 85730; 86593; 87086; 93005; 93010; 93306-TC; 93880-TC; 97116-GP; 97161-GP; 99281-25; J1644

== ENCOUNTER 2018-02-26 11:23 | Emergency (ER) | payer OTHER ==
[2018-02-26 12:06] VITALS: BP 159/89; PULSE 99; TEMP 99.4; BMI 38.4
[2018-02-26 12:36] LABS: BASO % 0.5 % (0-2.0); EOS % 0.3 % (0-4.5); HEMATOCRIT 37.2 % (35.4-49); HEMOGLOBIN 12.8 GM/dL (11.7-16.9); LYMPH % 8.7 % (8-40); MCH 31.8 pg (25.7-33.7); MCHC 34.5 g/dl (32.0-35.9); MEAN CELL VOLUME 92.2 fl (80-96); MEAN PLT VOLUME 7.6 fl (7.5-11.1); MONO % 6.1 % (3.8-10.2); NEUT % 84.4 % (42.8-82.8); PLATELET COUNT 245 K/MM3 (134-434); RBC 4.03 M/mm3 (4.00-5.60); WHITE BLOOD COUNT 11.5 K/mm3 (4.0-10.0)
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
[2018-02-26 12:53] LABS: INR 1.1 (0.83-1.09)
[2018-02-26 12:57] LABS: ALBUMIN 3.6 g/dl (3.4-5.0); ALK PHOS 92 U/L (45-117); ANION GAP 7 MMOL/L (8-16); BILIRUBIN,TOTAL 0.4 mg/dL (0.2-1); BLOOD UREA NITROGEN 14 mg/dL (7-18); CALCIUM 8.9 mg/dL (8.5-10.1); CHLORIDE 97 mmol/L (98-107); CO2 27 mmol/L (21-32); CREATININE 1.3 mg/dL (0.55-1.3); GLUCOSE,RANDOM 222 mg/dL (74-106); MAGNESIUM 1.3 mg/dL (1.8-2.4); POTASSIUM 4.7 mmol/L (3.5-5.1); SGOT/AST 21 U/L (15-37); SGPT/ALT 28 U/L (13-61); SODIUM 132 mmol/L (136-145); TOT PROT 7.6 g/dl (6.4-8.2)
--- NOTE | 2018-02-26 15:46 | EKG ---
Test Reason : Blood Pressure : / mmHG Vent. Rate : 092 BPM Atrial Rate : 092 BPM P-R Int : 186 ms QRS Dur : 096 ms QT Int : 384 ms P-R-T Axes : 053 100 049 degrees QTc Int : 474 ms NORMAL SINUS RHYTHM RIGHTWARD AXIS BORDERLINE ECG WHEN COMPARED WITH ECG OF 26-NOV-2017 01:30, VENT. RATE HAS INCREASED BY 30 BPM Confirmed by JACKIE PEACE MD ([id number]) on 02/26/2018 3:46:05 PM Referred By: Confirmed By:JACKIE PEACE MD
== END 2018-02-26 16:10 | disposition home or self-care (01) ==
LOC: JER 11:23
DX: R42 Dizziness and giddiness (principal); I10 Essential (primary) hypertension; E11.9 Type 2 diabetes mellitus without complications; Z79.84 Long term (current) use of oral hypoglycemic drugs; E78.00 Pure hypercholesterolemia, unspecified; N40.0 Benign prostatic hyperplasia without lower urinary tract symptoms; B18.2 Chronic viral hepatitis C; F17.210 Nicotine dependence, cigarettes, uncomplicated
CPT/HCPCS: 36415; 71045-TC-FY; 80053; 82550; 82553; 82962; 83735; 83880; 84484; 85025; 85610; 93005; 93010; 99283-25

== ENCOUNTER 2018-03-20 21:43 | Emergency (ER) | payer OTHER ==
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
[2018-03-20 22:13] VITALS: BP 137/59; PULSE 88; TEMP 98.7; BMI 36.9
[2018-03-20 23:13] LABS: BASO % 1.3 % (0-2.0); EOS % 8.9 % (0-4.5); HEMATOCRIT 34.7 % (35.4-49); HEMOGLOBIN 12.1 GM/dL (11.7-16.9); LYMPH % 37.8 % (8-40); MCH 32.6 pg (25.7-33.7); MCHC 34.9 g/dl (32.0-35.9); MEAN CELL VOLUME 93.4 fl (80-96); MEAN PLT VOLUME 7.5 fl (7.5-11.1); MONO % 9.8 % (3.8-10.2); NEUT % 42.2 % (42.8-82.8); PLATELET COUNT 217 K/MM3 (134-434); RBC 3.71 M/mm3 (4.00-5.60); RDW 13.7 % (11.9-15.9); WHITE BLOOD COUNT 4.2 K/mm3 (4.0-10.0)
[2018-03-20 23:39] LABS: PROTHROMBIN TIME (PATIENT) 11.8 SEC (9.7-13.0)
--- NOTE | 2018-03-20 23:45 | PDOC ---
Attending Attestation - HPI HPI: 03/20/18 23:47 The patient is a 68 year old male with a significant past medical history of NIDM and HTN, who presents to the emergency department today complaining of general weakness and lightheadedness. He states that an hour and a half prior to coming in, he was standing when he became weak and felt like he was going to pass out. He then sat down with little relief and hit his life alert bracelet. Patient states he thought it was due to his blood sugar being off. Patient denies any other complaints. The patient denies chest pain, shortness of breath, headache and dizziness. Denies fever, chills, nausea, vomit, diarrhea and constipation. Denies dysuria, frequency, urgency and hematuria. Allergies: NKA Social history: history of tobacco use. PCP: Dr. Zabala <Lianet Zarate - Last Filed: 03/20/18 23:47> - Resident Resident Name: RebeccaTemomissy - ED Attending Attestation I have performed the following: I have examined & evaluated the patient, The case was reviewed & discussed with the resident, I agree w/resident's findings & plan, Exceptions are as noted - Physicial Exam PE: 03/21/18 07:25 NAD, AOx3 NCAT, PERRL RRR LCTAB Abd soft, nt, nd TOTH, NFD - Medical Decision Making 03/21/18 07:26 pre-syncope no anemia, no worrisome pmh, ekg non-ischemic no abnormalities, no cp, sob low risk safe for dc with strict return instructions <Chepe Gomez - Last Filed: 03/21/18 07:27> Attestations - Attestations 03/20/18 23:47 Documentation prepared by Lianet Zarate, acting as medical assistant cardiology for Chepe Gomez MD. <Lianet Zarate - Last Filed: 03/20/18 23:47>
[2018-03-20 23:55] LABS: ALBUMIN 3.3 g/dl (3.4-5.0); ALK PHOS 91 U/L (45-117); ANION GAP 5 MMOL/L (8-16); BILIRUBIN,TOTAL 0.2 mg/dL (0.2-1); BLOOD UREA NITROGEN 14 mg/dL (7-18); CALCIUM 8.7 mg/dL (8.5-10.1); CHLORIDE 99 mmol/L (98-107); CO2 32 mmol/L (21-32); CREATININE 1.2 mg/dL (0.55-1.3); GLUCOSE,RANDOM 173 mg/dL (74-106); POTASSIUM 4.6 mmol/L (3.5-5.1); SGOT/AST 25 U/L (15-37); SGPT/ALT 32 U/L (13-61); SODIUM 136 mmol/L (136-145); TOT PROT 7.3 g/dl (6.4-8.2)
--- NOTE | 2018-03-22 16:48 | EKG ---
Test Reason : Blood Pressure : / mmHG Vent. Rate : 083 BPM Atrial Rate : 083 BPM P-R Int : 186 ms QRS Dur : 104 ms QT Int : 402 ms P-R-T Axes : 054 099 069 degrees QTc Int : 472 ms NORMAL SINUS RHYTHM RIGHTWARD AXIS BORDERLINE ECG WHEN COMPARED WITH ECG OF 26-FEB-2018 12:01, NO SIGNIFICANT CHANGE WAS FOUND Confirmed by Tabatha Shetty ([id number]) on 03/22/2018 4:48:00 PM Referred By: Confirmed By:Tabatha Shetty
== END 2018-03-21 00:45 | disposition home or self-care (01) ==
LOC: JER 21:43
DX: R55 Syncope and collapse (principal); E11.9 Type 2 diabetes mellitus without complications; I10 Essential (primary) hypertension; E78.5 Hyperlipidemia, unspecified; F32.9 Major depressive disorder, single episode, unspecified; B19.20 Unspecified viral hepatitis C without hepatic coma
CPT/HCPCS: 36415; 80053; 82962; 84484; 85025; 85610; 93005; 93010; 99282-25

== ENCOUNTER 2018-05-13 00:18 | Emergency (ER) | payer OTHER ==
[2018-05-13 01:28] VITALS: TEMP 98.4; BMI 39.1
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
--- NOTE | 2018-05-13 01:32 | PDOC ---
*Physical Exam - Vital Signs Last Vital Signs Temp Pulse Resp BP Pulse Ox 98.4 F 76 18 137/88 97 05/13/18 00:18 05/13/18 00:18 05/13/18 00:18 05/13/18 00:18 05/13/18 00:18 ED Treatment Course - LABORATORY CBC & Chemistry Diagram: 05/13/18 02:34 05/13/18 02:34 Medical Decision Making - Medical Decision Making 05/13/18 01:31 Patient seen by the advanced practice provider under my direct supervision. Ancillary testing reviewed as necessary. I agree with plan as outlined by the advanced practice provider. *DC/Admit/Observation/Transfer Diagnosis at time of Disposition: Vertigo - Discharge Dispostion Condition at time of disposition: Fair - Referrals Referrals: Ho Zabala MD [Primary Care Provider] - - Patient Instructions - Post Discharge Activity
[2018-05-13 02:48] LABS: BASO % 0.7 % (0-2.0); EOS % 4.3 % (0-4.5); HEMATOCRIT 40.3 % (35.4-49); HEMOGLOBIN 13.8 GM/dL (11.7-16.9); LYMPH % 30.5 % (8-40); MCH 32.6 pg (25.7-33.7); MCHC 34.2 g/dl (32.0-35.9); MEAN CELL VOLUME 95.3 fl (80-96); MEAN PLT VOLUME 7.6 fl (7.5-11.1); MONO % 10.1 % (3.8-10.2); NEUT % 54.4 % (42.8-82.8); PLATELET COUNT 263 K/MM3 (134-434); RBC 4.23 M/mm3 (4.00-5.60); RDW 15.9 % (11.9-15.9); WHITE BLOOD COUNT 5.6 K/mm3 (4.0-10.0)
[2018-05-13 03:19] LABS: ALBUMIN 3.4 g/dl (3.4-5.0); ALK PHOS 84 U/L (45-117); ANION GAP 7 MMOL/L (8-16); BILIRUBIN,TOTAL 0.4 mg/dL (0.2-1); BLOOD UREA NITROGEN 16 mg/dL (7-18); CALCIUM 8.9 mg/dL (8.5-10.1); CHLORIDE 93 mmol/L (98-107); CO2 30 mmol/L (21-32); CREATININE 1.4 mg/dL (0.55-1.3); GLUCOSE,RANDOM 285 mg/dL (74-106); POTASSIUM 3.8 mmol/L (3.5-5.1); SGOT/AST 21 U/L (15-37); SGPT/ALT 20 U/L (13-61); SODIUM 130 mmol/L (136-145); TOT PROT 7.5 g/dl (6.4-8.2)
[2018-05-13] MEDS ORDERED: SODIUM CHLORIDE 500 ML IV STA (03:38)
[2018-05-13 05:18] VITALS: BP 153/81; PULSE 60
--- NOTE | 2018-05-13 22:03 | EKG ---
Test Reason : Blood Pressure : / mmHG Vent. Rate : 066 BPM Atrial Rate : 066 BPM P-R Int : 196 ms QRS Dur : 088 ms QT Int : 408 ms P-R-T Axes : 063 090 074 degrees QTc Int : 427 ms NORMAL SINUS RHYTHM RIGHTWARD AXIS BORDERLINE ECG WHEN COMPARED WITH ECG OF 20-MAR-2018 22:09, NO SIGNIFICANT CHANGE WAS FOUND Confirmed by MD TAWNY, NANDINI ([id number]) on 05/13/2018 10:02:48 PM Referred By: Confirmed By:NANDINI HECTOR MD
== END 2018-05-13 06:14 | disposition home or self-care (01) ==
LOC: JER 00:18
PROC: 3E0337Z Introduction of Electrolytic and Water Balance Substance into Peripheral Vein, Percutaneous Approach (ICD-10-PCS; principal; 2018-05-13)
DX: R42 Dizziness and giddiness (principal); I10 Essential (primary) hypertension; E11.9 Type 2 diabetes mellitus without complications; Z79.84 Long term (current) use of oral hypoglycemic drugs; E78.5 Hyperlipidemia, unspecified; N40.0 Benign prostatic hyperplasia without lower urinary tract symptoms; F32.9 Major depressive disorder, single episode, unspecified; B18.2 Chronic viral hepatitis C; F11.20 Opioid dependence, uncomplicated; Z86.73 Personal history of transient ischemic attack (TIA), and cerebral infarction without residual deficits
CPT/HCPCS: 36415; 70450-TC; 80053; 84484; 85025; 93005; 93010; 96360; 99282-25

== ENCOUNTER 2018-05-26 08:38 | Inpatient (IN) | payer OTHER ==
[2018-05-26 10:05] VITALS: BMI 36.1
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
[2018-05-26] MEDS ORDERED: MENTHOL/PHENOL 1 EACH UD MM PRN (10:45)
[2018-05-26] MEDS ORDERED: MELATONIN 5 MG TABLETS PO PRN (10:45)
[2018-05-26] MEDS ORDERED: MAGNESIUM CITRATE 300 ML BOTTLE PO PRN (10:45)
[2018-05-26] MEDS ORDERED: IBUPROFEN 400 MG TABLET (FP) PO PRN (10:45)
[2018-05-26] MEDS ORDERED: MAGNESIUM HYDROX 2400MG/30ML ORAL SUSPENSION 30 ML CUP PO PRN (10:45)
[2018-05-26] MEDS ORDERED: METHOCARBAMOL 500 MG TABLET PO PRN (10:45)
[2018-05-26] MEDS ORDERED: hydrOXYzine PAMOATE 25 MG CAPSULE (FP) PO PRN (10:45)
[2018-05-26] MEDS ORDERED: ACETAMINOPHEN 325 MG TABLET (FP) PO PRN ×2 (10:45)
[2018-05-26] MEDS ORDERED: BISMUTH SUBSALICYLATE 262 MG/15 ML BTL PO PRN (10:45)
[2018-05-26] MEDS ORDERED: MAG HYDROX/AL HYDROX/SIMETH 30 ML UNIT-DOSE CUP PO PRN (10:45)
[2018-05-26] MEDS: NICOTINE 21 MG/24 HOURS TOPICAL PATCH TD SCH (13:10)
[2018-05-26] MEDS: diazePAM 5 MG TABLET PO SCH ×2 (13:10→22:13)
[2018-05-26 15:22] LABS: HEMATOCRIT 42.1 % (35.4-49); HEMOGLOBIN 13.9 GM/dL (11.7-16.9); MCH 31.3 pg (25.7-33.7); MCHC 33.1 g/dl (32.0-35.9); MEAN CELL VOLUME 94.7 fl (80-96); MEAN PLT VOLUME 8.4 fl (7.5-11.1); PLATELET COUNT 226 K/MM3 (134-434); RBC 4.44 M/mm3 (4.00-5.60); WHITE BLOOD COUNT 5.1 K/mm3 (4.0-10.0)
[2018-05-26 15:40] LABS: ALBUMIN 3.9 g/dl (3.4-5.0); ALK PHOS 89 U/L (45-117); ANION GAP 8 MMOL/L (8-16); BILIRUBIN,TOTAL 0.8 mg/dL (0.2-1); BLOOD UREA NITROGEN 25 mg/dL (7-18); CALCIUM 9.2 mg/dL (8.5-10.1); CHLORIDE 101 mmol/L (98-107); CO2 26 mmol/L (21-32); CREATININE 1.5 mg/dL (0.55-1.3); GLUCOSE,RANDOM 186 mg/dL (74-106); POTASSIUM 4.7 mmol/L (3.5-5.1); SGOT/AST 22 U/L (15-37); SGPT/ALT 21 U/L (13-61); SODIUM 135 mmol/L (136-145); TOT PROT 7.8 g/dl (6.4-8.2)
[2018-05-26] MEDS: metFORMIN HCL 500 MG TABLET (FP) PO SCH (16:40)
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
[2018-05-26] MEDS: diazePAM 5 MG TABLET PO PRN (17:44)
[2018-05-26] MEDS ORDERED: QUEtiapine FUMARATE 300 MG TABLET PO SCH (22:00)
[2018-05-26] MEDS: THIAMINE HCL 100 MG TABLET (FP) PO SCH (22:12)
[2018-05-26] MEDS: QUEtiapine FUMARATE 50 MG TABLET PO SCH (22:13)
[2018-05-26] MEDS: ATORVASTATIN CA 20 MG TABLET (FP) PO SCH (22:13)
[2018-05-27] MEDS ORDERED: METHADONE HCL 10 MG TABLET ONE (04:20)
[2018-05-27] MEDS ORDERED: METHADONE HCL 40 MG DISPERSABLE TABLET ONE (04:21)
[2018-05-27] MEDS: METHADONE 80 MG, METHADONE 20 MG PO SCH (05:48)
[2018-05-27] MEDS: diazePAM 5 MG TABLET PO SCH ×3 (05:49→22:16)
[2018-05-27] MEDS ORDERED: METHADONE HCL 10 MG TABLET PO SCH (06:00)
[2018-05-27] MEDS: metFORMIN HCL 500 MG TABLET (FP) PO SCH ×2 (07:42→17:19)
[2018-05-27] MEDS ORDERED: LOSARTAN POTASSIUM 50 MG TABLET (FP) PO SCH (10:00)
[2018-05-27] MEDS ORDERED: PRENATAL VITAMINS W/ FOLIC ACID TABLET (FP) PO SCH (10:00)
[2018-05-27] MEDS ORDERED: ASPIRIN 325 MG TABLET PO SCH (10:00)
[2018-05-27] MEDS: NICOTINE 21 MG/24 HOURS TOPICAL PATCH TD SCH (10:10)
[2018-05-27] MEDS: diazePAM 5 MG TABLET PO PRN (10:10)
--- NOTE | 2018-05-27 13:19 | PN ---
S CIWA - CIWA Score Nausea/Vomitin-Mild Nausea/No Vomiting Muscle Tremors: 1-None Visible, but [place] Anxiety: 3 Agitation: 2 Paroxysmal Sweats: 1-Minimal Palms Moist Orientation: 1-Uncertain about Date Tacttile Disturbances: 0-None Auditory Disturbances: 0-None Visual Disturbances: 0-None Headache: 0-None Present CIWA-Ar Total Score: 9 [facility] Progress Note (SOAP) Subjective: anxiousness evaluated by the psychiatrist feeling better Objective: 05/27/18 13:26 Vital Signs Temperature 96.4 F L 05/27/18 13:18 Pulse Rate 86 05/27/18 13:18 Respiratory Rate 18 05/27/18 13:18 Blood Pressure 143/96 05/27/18 13:18 O2 Sat by Pulse Oximetry (%) Laboratory Last Values WBC 5.1 K/mm3 (4.0-10.0) 05/26/18 11:25 RBC 4.44 M/mm3 (4.00-5.60) 05/26/18 11:25 Hgb 13.9 GM/dL (11.7-16.9) 05/26/18 11:25 Hct 42.1 % (35.4-49) 05/26/18 11:25 MCV 94.7 fl (80-96) 05/26/18 11:25 MCH 31.3 pg (25.7-33.7) 05/26/18 11:25 MCHC 33.1 g/dl (32.0-35.9) 05/26/18 11:25 RDW 15.0 % (11.9-15.9) 05/26/18 11:25 Plt Count 226 K/MM3 (134-434) 05/26/18 11:25 MPV 8.4 fl (7.5-11.1) D 05/26/18 11:25 Sodium 135 mmol/L (136-145) L 05/26/18 11:25 Potassium 4.7 mmol/L (3.5-5.1) 05/26/18 11:25 Chloride 101 mmol/L (98-107) 05/26/18 11:25 Carbon Dioxide 26 mmol/L (21-32) 05/26/18 11:25 Anion Gap 8 MMOL/L (8-16) 05/26/18 11:25 BUN 25 mg/dL (7-18) H 05/26/18 11:25 Creatinine 1.5 mg/dL (0.55-1.3) H 05/26/18 11:25 Creat Clearance w eGFR 46.40 (>60) 05/26/18 11:25 POC Glucometer 193 UNITS (80-120) 05/27/18 05:47 Random Glucose 186 mg/dL (74-106) H 05/26/18 11:25 Calcium 9.2 mg/dL (8.5-10.1) 05/26/18 11:25 Total Bilirubin 0.8 mg/dL (0.2-1) 05/26/18 11:25 AST 22 U/L (15-37) 05/26/18 11:25 ALT 21 U/L (13-61) 05/26/18 11:25 Alkaline Phosphatase 89 U/L (45-117) 05/26/18 11:25 Total Protein 7.8 g/dl (6.4-8.2) 05/26/18 11:25 Albumin 3.9 g/dl (3.4-5.0) 05/26/18 11:25 RPR Titer Nonreactive (NONREACTIVE) 05/26/18 11:25 HIV 1&2 Antibody Screen Negative 05/26/18 11:25 HIV P24 Antigen Negative 05/26/18 11:25 lab noted Assessment: 05/27/18 13:29 alcohol withdrawal sx Plan: continue detox
[2018-05-27] MEDS ORDERED: TAMSULOSIN HCL 0.4 MG CAP PO SCH (14:00)
[2018-05-27] MEDS ORDERED: HYDROCHLOROTHIAZIDE 25 MG TABLET (FP) PO SCH (14:00)
[2018-05-27 15:08] LABS: EPI CELLS 3.1 /HPF (0-5/HPF); PH,URINE 5.5 (5.0-8.0); URINE APPEARANCE CLEAR; URINE BILIRUBIN NEGATIVE (NEGATIVE); URINE CASTS 9 /hpf (0-8); URINE COLOR YELLOW; URINE GLUCOSE (UA) 3+ (NEGATIVE); URINE KETONE NEGATIVE (NEGATIVE); URINE LEUK ESTERASE 2+ (NEGATIVE); URINE NITRITE NEGATIVE (NEGATIVE); URINE PROTEIN TRACE (NEGATIVE); URINE RBC 54 /hpf (0-4); URINE UROBILINOGEN 0.2 mg/dL (0.2-1.0); URINE WBC 24 /hpf (0-5)
[2018-05-27] MEDS ORDERED: hydrOXYzine HCL 25 MG TABLET (FP) PO PRN (18:44)
[2018-05-27] MEDS: THIAMINE HCL 100 MG TABLET (FP) PO SCH (22:16)
[2018-05-27] MEDS: QUEtiapine FUMARATE 50 MG TABLET PO SCH (22:17)
[2018-05-27] MEDS: ATORVASTATIN CA 20 MG TABLET (FP) PO SCH (22:17)
[2018-05-28] MEDS ORDERED: METHADONE HCL 10 MG TABLET ONE (04:28)
[2018-05-28] MEDS ORDERED: METHADONE HCL 40 MG DISPERSABLE TABLET ONE (04:28)
[2018-05-28] MEDS: METHADONE 80 MG, METHADONE 20 MG PO SCH (05:41)
[2018-05-28] MEDS ORDERED: diazePAM 5 MG TABLET PO ONE (06:00)
[2018-05-28 06:32] VITALS: BP 145/83; PULSE 77; TEMP 97
[2018-05-28] MEDS: metFORMIN HCL 500 MG TABLET (FP) PO SCH (07:21)
--- NOTE | 2018-05-28 13:50 | DS ---
[facility] Detox Discharge Summary Admission Date: 05/26/18 Discharge Date: 05/28/18 - History Present History: Sedative Dependence Additional Comments: 68 years old male admitted on 05/26/18 for benzo withdrawal stabiliztion feeling better today preferring to return to methadone program for medical and mental issues alert no acute distress denies suicidal ideation - Physical Exam Results Vital Signs: Vital Signs Temperature 97.0 F L 05/28/18 06:31 Pulse Rate 77 05/28/18 06:31 Respiratory Rate 18 05/28/18 06:31 Blood Pressure 145/83 05/28/18 06:31 O2 Sat by Pulse Oximetry (%) Pertinent Admission Physical Exam Findings: benzo withdrawal sx Laboratory Last Values WBC 5.1 K/mm3 (4.0-10.0) 05/26/18 11:25 RBC 4.44 M/mm3 (4.00-5.60) 05/26/18 11:25 Hgb 13.9 GM/dL (11.7-16.9) 05/26/18 11:25 Hct 42.1 % (35.4-49) 05/26/18 11:25 MCV 94.7 fl (80-96) 05/26/18 11:25 MCH 31.3 pg (25.7-33.7) 05/26/18 11:25 MCHC 33.1 g/dl (32.0-35.9) 05/26/18 11:25 RDW 15.0 % (11.9-15.9) 05/26/18 11:25 Plt Count 226 K/MM3 (134-434) 05/26/18 11:25 MPV 8.4 fl (7.5-11.1) D 05/26/18 11:25 Sodium 135 mmol/L (136-145) L 05/26/18 11:25 Potassium 4.7 mmol/L (3.5-5.1) 05/26/18 11:25 Chloride 101 mmol/L (98-107) 05/26/18 11:25 Carbon Dioxide 26 mmol/L (21-32) 05/26/18 11:25 Anion Gap 8 MMOL/L (8-16) 05/26/18 11:25 BUN 25 mg/dL (7-18) H 05/26/18 11:25 Creatinine 1.5 mg/dL (0.55-1.3) H 05/26/18 11:25 Creat Clearance w eGFR 46.40 (>60) 05/26/18 11:25 POC Glucometer 155 UNITS (80-120) 05/28/18 05:40 Random Glucose 186 mg/dL (74-106) H 05/26/18 11:25 Calcium 9.2 mg/dL (8.5-10.1) 05/26/18 11:25 Total Bilirubin 0.8 mg/dL (0.2-1) 05/26/18 11:25 AST 22 U/L (15-37) 05/26/18 11:25 ALT 21 U/L (13-61) 05/26/18 11:25 Alkaline Phosphatase 89 U/L (45-117) 05/26/18 11:25 Total Protein 7.8 g/dl (6.4-8.2) 05/26/18 11:25 Albumin 3.9 g/dl (3.4-5.0) 05/26/18 11:25 Urine Color Yellow 05/27/18 12:30 Urine Appearance Clear 05/27/18 12:30 Urine pH 5.5 (5.0-8.0) 05/27/18 12:30 Ur Specific [place] 1.021 (1.010-1.035) 05/27/18 12:30 Urine Protein Trace (NEGATIVE) 05/27/18 12:30 Urine Glucose (UA) 3+ (NEGATIVE) H 05/27/18 12:30 Urine Ketones Negative (NEGATIVE) 05/27/18 12:30 Urine Blood 2+ (NEGATIVE) H 05/27/18 12:30 Urine Nitrite Negative (NEGATIVE) 05/27/18 12:30 Urine Bilirubin Negative (NEGATIVE) 05/27/18 12:30 Urine Urobilinogen 0.2 mg/dL (0.2-1.0) 05/27/18 12:30 Ur Leukocyte Esterase 2+ (NEGATIVE) H 05/27/18 12:30 Urine WBC (Auto) 24 /hpf (0-5) 05/27/18 12:30 Urine RBC (Auto) 54 /hpf (0-4) 05/27/18 12:30 Urine Casts (Auto) 9 /hpf (0-8) 05/27/18 12:30 U Epithel Cells (Auto) 3.1 /HPF (0-5/HPF) 05/27/18 12:30 Urine Bacteria (Auto) 3.0 /hpf (NEGATIVE) 05/27/18 12:30 RPR Titer Nonreactive (NONREACTIVE) 05/26/18 11:25 HIV 1&2 Antibody Screen Negative 05/26/18 11:25 HIV P24 Antigen Negative 05/26/18 11:25 lab noted - Treatment Hospital Course: Detox Protocol Followed, Detoxed Safely, Responded well, Discharged Condition Good, Rehab Referral Accepted Patient has Accepted a Rehab Referral to: methadone maintenance program - Medication Discharge Medications: Ambulatory Orders Atorvastatin Ca [Lipitor] 20 mg PO HS 05/28/14 Quetiapine Fumarate [Seroquel -] 300 mg PO HS 05/28/14 metFORMIN HCL [Glucophage -] 500 mg PO BID 09/27/17 Methadone [Dolophine -] 100 mg PO DAILY@0600 MDD 1 02/26/18 metFORMIN HCL [Glucophage -] 500 mg PO BID 02/26/18 Aspirin [ASA -] 325 mg PO DAILY 05/26/18 Losartan Potassium [Cozaar -] 50 mg PO DAILY 05/26/18 Hydrochlorothiazide [Hctz -] 25 mg PO DAILY 05/27/18 Tamsulosin HCl [Flomax -] 0.4 mg PO DAILY 05/27/18 - Diagnosis (1) Alcohol dependence with uncomplicated withdrawal Status: Acute (2) DM2 (diabetes mellitus, type 2) Status: Chronic Qualifiers: Diabetes mellitus fci insulin use: without fci use Diabetes mellitus complication status: without complication Qualified Code(s): E11.9 - Type 2 diabetes mellitus without complications (3) Essential hypertension Status: Chronic (4) Hypercholesterolemia Status: Chronic (5) Methadone maintenance therapy patient Status: Chronic (6) Asthma Status: Chronic (7) Essential hypertension Status: Chronic (8) Hepatitis C Status: Chronic Qualifiers: Viral hepatitis chronicity: unspecified Hepatic coma status: without hepatic coma Qualified Code(s): B19.20 - Unspecified viral hepatitis C without hepatic coma (9) Nicotine dependence Status: Acute Qualifiers: Nicotine product type: cigarettes Substance use status: in withdrawal Qualified Code(s): F17.213 - Nicotine dependence, cigarettes, with withdrawal - AMA Did Patient Leave Against Medical Advice: No
== END 2018-05-28 08:25 | disposition home or self-care (01) | DRG 897 ==
LOC: YASAS 08:38 → Y3N 11:07
PROVIDERS: ADMIT Surgery; ATTEND Surgery
PROC: HZ2ZZZZ Detoxification Services for Substance Abuse Treatment (ICD-10-PCS; principal; 2018-05-26)
DX: F13.230 Sedative, hypnotic or anxiolytic dependence with withdrawal, uncomplicated (principal); F11.20 Opioid dependence, uncomplicated; F10.230 Alcohol dependence with withdrawal, uncomplicated; F17.213 Nicotine dependence, cigarettes, with withdrawal; F19.24 Other psychoactive substance dependence with psychoactive substance-induced mood disorder; E11.9 Type 2 diabetes mellitus without complications; I10 Essential (primary) hypertension; E78.00 Pure hypercholesterolemia, unspecified; J45.909 Unspecified asthma, uncomplicated; B19.20 Unspecified viral hepatitis C without hepatic coma; G47.00 Insomnia, unspecified; K21.9 Gastro-esophageal reflux disease without esophagitis; K74.60 Unspecified cirrhosis of liver; N40.0 Benign prostatic hyperplasia without lower urinary tract symptoms; Z86.73 Personal history of transient ischemic attack (TIA), and cerebral infarction without residual deficits; Z79.84 Long term (current) use of oral hypoglycemic drugs
CPT/HCPCS: 36415; 80053; 81003; 82962; 85027; 86593; 87389

== ENCOUNTER 2018-11-19 20:08 | Observation (INO) | payer OTHER ==
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
--- NOTE | 2018-11-19 20:49 | PDOC ---
Attending Attestation - Resident Resident Name: Yoon Munoz - ED Attending Attestation I have performed the following: I have examined & evaluated the patient, The case was reviewed & discussed with the resident, I agree w/resident's findings & plan - HPI HPI: 11/19/18 22:27 see resident hpi - Physicial Exam PE: 11/19/18 22:28 agree with resident exam - Medical Decision Making 11/19/18 22:28 68 yo male with palpitaions and chest discomfort EKG revieled bigeminy on arrival history of IVDA in the past now in NSR will admit for tele monitoring
[2018-11-19 23:13] LABS: BASO % 1.2 % (0-2.0); EOS % 1.9 % (0-4.5); HEMATOCRIT 31.3 % (35.4-49); HEMOGLOBIN 10.4 GM/dL (11.7-16.9); LYMPH % 26.7 % (8-40); MCH 30.3 pg (25.7-33.7); MCHC 33.1 g/dl (32.0-35.9); MEAN CELL VOLUME 91.5 fl (80-96); MEAN PLT VOLUME 7.1 fl (7.5-11.1); MONO % 6.8 % (3.8-10.2); NEUT % 63.4 % (42.8-82.8); PLATELET COUNT 307 K/MM3 (134-434); RBC 3.41 M/mm3 (4.00-5.60); RDW 19.4 % (11.9-15.9); WHITE BLOOD COUNT 7.4 K/mm3 (4.0-10.0)
[2018-11-19 23:20] LABS: INR 1.13 (0.83-1.09); PROTHROMBIN TIME (PATIENT) 13.3 SEC (9.7-13.0)
[2018-11-19 23:55] LABS: ALBUMIN 3.2 g/dl (3.4-5.0); BILIRUBIN,TOTAL 0.3 mg/dL (0.2-1); CALCIUM 8.7 mg/dL (8.5-10.1); CREATININE 1.3 mg/dL (0.55-1.3); MAGNESIUM 1.5 mg/dL (1.8-2.4); POTASSIUM 3.8 mmol/L (3.5-5.1)
--- NOTE | 2018-11-19 23:58 | PDOC ---
*Physical Exam - Vital Signs Last Vital Signs Temp Pulse Resp BP Pulse Ox 98.0 F 47 L 17 140/56 L 95 11/19/18 20:48 11/19/18 20:48 11/19/18 20:48 11/19/18 20:48 11/19/18 20:48 ED Treatment Course - LABORATORY CBC & Chemistry Diagram: 11/19/18 22:56 11/19/18 22:59 - ADDITIONAL ORDERS Additional order review: Laboratory Results 11/19/18 11/19/18 11/19/18 22:59 22:59 22:56 PT with INR 13.30 H INR 1.13 H Sodium 137 Potassium 3.8 Chloride 99 Carbon Dioxide 30 Anion Gap 7 L BUN 10.0 Creatinine 1.3 Est GFR (CKD-EPI)AfAm 64.52 Est GFR (CKD-EPI)NonAf 55.67 Random Glucose 74 Calcium 8.7 Magnesium 1.5 L Total Bilirubin 0.3 AST 19 ALT 18 Alkaline Phosphatase 63 Creatine Kinase 215 Troponin I < 0.02 Total Protein 7.0 Albumin 3.2 L TSH 0.81 D 11/19/18 22:56 RBC 3.41 L MCV 91.5 MCHC 33.1 RDW 19.4 H MPV 7.1 L D Neutrophils % 63.4 Lymphocytes % 26.7 Monocytes % 6.8 Eosinophils % 1.9 Basophils % 1.2 - RADIOLOGY Radiology Studies Ordered: Category Date Time Status CHEST X-RAY PORTABLE* [RAD] Stat Radiology 11/19/18 20:44 Taken Medical Decision Making - Medical Decision Making 11/19/18 23:58 Pt signed out to me by Dr. Munoz. 68M with MMP who presents with palpitations and new EKG changes. Labs WNL. Dr. Arellano paged for admission. 11/20/18 00:[address] Arellano. Discharge - Discharge Information Problems reviewed: Yes Clinical Impression/Diagnosis: Palpitations Condition: Guarded - Admission Yes - Follow up/Referral Referrals: Ho Zabala MD [Primary Care Provider] - - Patient Discharge Instructions - Post Discharge Activity
[2018-11-20] MEDS ORDERED: MAGNESIUM SULF 50% (8.12 MEQ/2 ML-1 GM VIAL) IVPB ONE ×2 (03:39→22:50)
[2018-11-20] MEDS ORDERED: MAGNESIUM SULF 50% (8.12 MEQ/2 ML-1 GM VIAL) ONE (03:40)
[2018-11-20 04:07] LABS: PHOSPHOROUS 3.2 mg/dL (2.5-4.9)
[2018-11-20 04:32] VITALS: BMI 36.2
[2018-11-20] MEDS: TAMSULOSIN HCL 0.4 MG CAP PO SCH (08:45)
[2018-11-20] MEDS ORDERED: METHADONE HCL 10 MG TABLET ONE (09:01)
[2018-11-20] MEDS ORDERED: METHADONE HCL 40 MG DISPERSABLE TABLET ONE (09:01)
[2018-11-20] MEDS: METHADONE 80 MG, METHADONE 20 MG PO SCH (09:06)
[2018-11-20] MEDS: HEPARIN NA (PORCINE) 5,000 UNITS/ML 1ML VIAL SQ SCH ×2 (09:07→21:44)
[2018-11-20] MEDS: HYDROCHLOROTHIAZIDE 25 MG TABLET (FP) PO SCH (09:07)
[2018-11-20] MEDS: LOSARTAN POTASSIUM 50 MG TABLET (FP) PO SCH (09:07)
[2018-11-20 09:34] LABS: EPI CELLS 0.9 /HPF (0-5/HPF); HYALINE CASTS 0 /lpf (0-8); URINE APPEARANCE CLEAR; URINE BACTERIA 0.7 /hpf (NEGATIVE); URINE BILIRUBIN NEGATIVE (NEGATIVE); URINE COLOR YELLOW; URINE GLUCOSE (UA) 2+ (NEGATIVE); URINE KETONE NEGATIVE (NEGATIVE); URINE LEUK ESTERASE TRACE (NEGATIVE); URINE NITRITE NEGATIVE (NEGATIVE); URINE PROTEIN NEGATIVE (NEGATIVE); URINE RBC 1 /hpf (0-4); URINE UROBILINOGEN 0.2 mg/dL (0.2-1.0); URINE WBC 2 /hpf (0-5)
[2018-11-20] MEDS ORDERED: ASPIRIN 325 MG TABLET PO SCH (10:00)
[2018-11-20] MEDS ORDERED: TAMSULOSIN HCL 0.4 MG CAP PO SCH (10:00)
[2018-11-20] MEDS: INSULIN SLIDING SCALE (NOVOLOG) 1 VIAL SQ SCH ×3 (12:06→21:44)
--- NOTE | 2018-11-20 14:45 | EKG ---
Test Reason : Blood Pressure : / mmHG Vent. Rate : 095 BPM Atrial Rate : 095 BPM P-R Int : 180 ms QRS Dur : 090 ms QT Int : 386 ms P-R-T Axes : 052 082 063 degrees QTc Int : 485 ms SINUS RHYTHM WITH FREQUENT PREMATURE VENTRICULAR COMPLEXES IN A PATTERN OF BIGEMINY PROLONGED QT ABNORMAL ECG WHEN COMPARED WITH ECG OF 13-MAY-2018 03:19, PREMATURE VENTRICULAR COMPLEXES ARE NOW PRESENT QT HAS LENGTHENED Confirmed by ABBI KEITH MD ([id number]) on 11/20/2018 2:45:03 PM Referred By: Confirmed By:ABBI KEITH MD
--- NOTE | 2018-11-20 15:29 | ECHO ---
Name: FABY DIAZ Exam:Adult Echocardiogram Study Date: 11/20/2018 12:37 PM Age: 68 yrs Reason For Study: Chest pain Height: 69 in Weight: 245 lb BSA: 2.3 m2 MMode/2D Measurements & Calculations Ao root diam: 3.4 cm LVOT diam: 2.2 cm Doppler Measurements & Calculations MV E max vitaliy: 79.5 cm/sec Ao V2 max: 108.6 cm/sec MV A max vitaliy: 96.3 cm/sec Ao max P.7 mmHg MV E/A: 0.83 MV dec time: 0.21 sec CRYS(V,D): 3.2 cm2 LV V1 max P.2 mmHg MR max vitaliy: 334.1 cm/sec LV V1 max: 89.3 cm/sec MR max P.7 mmHg TR max vitaliy: 233.2 cm/sec PI end-d vitaliy: 125.3 cm/sec TR max P.8 mmHg Med Peak E' Vitaliy: 6.9 cm/sec Med E/e': 11.5 Lat Peak E' Vitaliy: 11.0 cm/sec Lat E/e': 7.2 Left Ventricle There is mild concentric left ventricular hypertrophy. The left ventricular ejection fraction is norm al. Ejection Fraction = 55-60%. The transmitral spectral Doppler flow pattern is suggestive of impaired L V relaxation. The left ventricular wall motion is normal. Right Ventricle The right ventricular systolic function is normal. Mitral Valve There is mild mitral valve thickening. There is mild mitral regurgitation. Tricuspid Valve There is mild tricuspid regurgitation. Right ventricular systolic pressure is normal. Pulmonic Valve Moderate pulmonic valvular regurgitation. Great Vessels The aortic root is normal size. Pericardium/Pleura There is no pericardial effusion. Interpretation Summary There is mild concentric left ventricular hypertrophy. Ejection Fraction = 55-60%. The transmitral spectral Doppler flow pattern is suggestive of impaired LV relaxation. The left ventricular wall motion is normal. The right ventricular systolic function is normal. There is mild mitral regurgitation. There is mild mitral valve thickening. Moderate pulmonic valvular regurgitation. There is mild tricuspid regurgitation. Right ventricular systolic pressure is normal. The aortic root is normal size. There is no pericardial effusion. Ernie Mancera MD 11/20/2018 03:28 PM
[2018-11-20] MEDS: metFORMIN HCL 500 MG TABLET (FP) PO SCH (17:26)
[2018-11-20] MEDS ORDERED: QUEtiapine FUMARATE 300 MG TABLET PO SCH (22:00)
[2018-11-20] MEDS ORDERED: ATORVASTATIN CA 20 MG TABLET (FP) PO SCH (22:00)
[2018-11-20] MEDS ORDERED: POTASSIUM CHLORIDE TABS 20 MEQ TABLET.ER (FP) PO ONE (22:45)
--- NOTE | 2018-11-20 22:49 | CON.CARD ---
Consult Consult Specialty:: cardiology Reason for Consultation:: chest pain; palpitations; EKG changes (ventricular bigeminy) - History of Present Illness Chief Complaint: Pt A&Ox3; ambulating in room. No chest pain or palpitations. History of Present Illness: 68 yo black male with PMHx substance abuse (now on methadone; denies having used cocaine for years); HTN; DM, s/p CVA (hx left caudate body lacunar infarct ; bilateral cerebellar infarcts), hyperlipidemia;diastolic CHF; BPH; ? hepatitis C; obesity; depression, insomnia; cigarette smoker, alcoholism, anemia (s/p ?GI bleed in past years), now admitted for palpitations and chest discomfort. EKG revieled ventricular bigeminy on arrival history of IVDA in the past Pt used to work out regularly at weight-lifting; he was doing so a few times a week as recently as several months ago. He believes he had a stress test at PMD's office. PMD: Dr. Ho Zabala. Hydrogeologist: Dr. Gisele Tamayo. - History Source History Provided By: Patient, Medical Record Limitations to Obtaining History: No Limitations - Past Medical History Cardio/Vascular: Yes: CHF, HTN, Hyperlipdemia, Other (ventricular bigeminy) Gastrointestinal: Yes: GI Bleed, Peptic Ulcer Disease Hepatobiliary: Yes: Hepatitis C Heme/Onc: Yes: Anemia Psych: Yes: Depression, Other (alcoholism) Endocrine: Yes: Diabetes Mellitus - Alcohol/Substance Use Hx Alcohol Use: Yes - Smoking History Smoking history: Current every day smoker Have you smoked in the past 12 months: No Aproximately how many cigarettes per day: 5 - Social History Usual Living Arrangement: Alone ADL: Independent 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 History of Recent Travel: No Home Medications - Allergies Allergies/Adverse Reactions: Allergies Allergy/AdvReac Type Severity Reaction Status Date / Time No Known Allergies Allergy Verified 11/19/18 20:58 - Home Medications Home Medications: Ambulatory Orders Atorvastatin Ca [Lipitor] 20 mg PO HS 05/28/14 Quetiapine Fumarate [Seroquel -] 300 mg PO HS 05/28/14 metFORMIN HCL [Glucophage -] 500 mg PO BIDAC 09/27/17 Methadone [Dolophine -] 100 mg PO DAILY@0600 MDD 1 02/26/18 Aspirin [ASA -] 325 mg PO DAILY 05/26/18 Losartan Potassium [Cozaar -] 50 mg PO DAILY 05/26/18 Hydrochlorothiazide [Hctz -] 25 mg PO DAILY 05/27/18 Tamsulosin HCl [Flomax -] 0.4 mg PO DAILY 05/27/18 Empagliflozin [Jardiance] 25 mg PO DAILY 11/19/18 Review of Systems - Review of Systems Constitutional: reports: No Symptoms Eyes: reports: No Symptoms HENT: reports: No Symptoms Neck: reports: No Symptoms Cardiovascular: reports: Chest Pain, Palpitations Respiratory: reports: No Symptoms Gastrointestinal: reports: No Symptoms Genitourinary: reports: Frequency Breasts: reports: No Symptoms Reported Musculoskeletal: reports: No Symptoms Integumentary: reports: No Symptoms Neurological: reports: No Symptoms Endocrine: reports: No Symptoms Hematology/Lymphatic: reports: No Symptoms Psychiatric: reports: Other (addictions) - Risk Factors Known Risk Factors: Yes: Age, Diabetes Mellitus, Gender, Hypercholesterolemia, Hypertension, Physical Inactivity Vital Signs: Vital Signs Temperature 98.3 F 11/20/18 22:00 Pulse Rate 73 11/20/18 22:00 Respiratory Rate 20 11/20/18 22:00 Blood Pressure 151/99 11/20/18 22:00 O2 Sat by Pulse Oximetry (%) 97 11/20/18 20:50 Constitutional: Yes: Calm, Obese Eyes: Yes: WNL HENT: Yes: WNL Neck: Yes: WNL Respiratory: Yes: WNL Gastrointestinal: Yes: WNL Renal/: No: Anuria Cardiovascular: Yes: Pulse Irregular JVD: No Carotid Bruit: No PMI: Non-Displaced Heart Sounds: Yes: S1, S2, S4 Murmur: Yes: Systolic Murmur, Grade 1 Musculoskeletal: Yes: WNL Extremities: Yes: WNL Edema: No Peripheral Pulses WNL: Yes Integumentary: Yes: WNL Neurological: Yes: WNL ...Motor Strength: WNL Psychiatric: Yes: Alert, Oriented, Other - Other Data Labs, Other Data: CBC, BMP 11/19/18 22:56 11/19/18 22:59 INR, PTT INR 1.13 (0.83-1.09) H 11/19/18 22:56 Troponin, BNP 11/19/18 22:59 Troponin I < 0.02 Troponin, BNP 11/19/18 22:59 Troponin I < 0.02 Abnormal Lab Results 11/19/18 11/19/18 11/20/18 22:56 22:59 05:30 PT with INR 13.30 H INR 1.13 H Anion Gap 7 L Magnesium 1.5 L Albumin 3.2 L Ur Specific [place] 1.008 L Urine Glucose (UA) 2+ H Echo: Image Reviewed Ejection Fraction %: LVEF > or = 40 % Imaging - Results Chest X-ray: Image Reviewed Cat Scan: Image Reviewed EKG: Image Reviewed Problem List - Problems (1) Palpitations Assessment/Plan: Periods of ventricular bigeminy. Replete electrolytes (both K and Mg are low). Keep K 4-4.5 Keep Mg 2-2.4 Keep PO4 2.5-4.9. F/u past cardiac workup regarding prior arrhythmia (?AF), CAD. F/u ECHO for LVEF, chamber sizes, wall motion, valve status. Code(s): R00.2 - PALPITATIONS (2) Alcohol dependence with uncomplicated withdrawal Code(s): F10.230 - ALCOHOL DEPENDENCE WITH WITHDRAWAL, UNCOMPLICATED (3) Anemia Code(s): D64.9 - ANEMIA, UNSPECIFIED Qualifiers: Anemia type: iron deficiency anemia due to chronic blood loss (4) Depression Code(s): F32.9 - MAJOR DEPRESSIVE DISORDER, SINGLE EPISODE, UNSPECIFIED (5) Nicotine dependence Code(s): F17.200 - NICOTINE DEPENDENCE, UNSPECIFIED, UNCOMPLICATED Qualifiers: Nicotine product type: cigarettes Substance use status: in withdrawal Qualified Code(s): F17.213 - Nicotine dependence, cigarettes, with withdrawal (6) Asthma Code(s): J45.909 - UNSPECIFIED ASTHMA, UNCOMPLICATED (7) DM Diabetes mellitus type 2 Code(s): E11.9 - TYPE 2 DIABETES MELLITUS WITHOUT COMPLICATIONS (8) Essential hypertension Code(s): I10 - ESSENTIAL (PRIMARY) HYPERTENSION (9) Hepatitis C Code(s): B19.20 - UNSPECIFIED VIRAL HEPATITIS C WITHOUT HEPATIC COMA Qualifiers: Viral hepatitis chronicity: unspecified Hepatic coma status: without hepatic coma Qualified Code(s): B19.20 - Unspecified viral hepatitis C without hepatic coma (10) Hypercholesterolemia Assessment/Plan: On statin. F/u lipid profile. 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 Code(s): K92.2 - GASTROINTESTINAL HEMORRHAGE, UNSPECIFIED (13) History of CVA (cerebrovascular accident) Assessment/Plan: PMHx lacunar infarct of left caudate body; multiple bilateral cerebellar infarcts. F/u past cardiac and neurological workup; r/o AF. Code(s): Z86.73 - PRSNL HX OF TIA (TIA), AND CEREB INFRC W/O RESID DEFICITS (14) Diastolic CHF Code(s): I50.30 - UNSPECIFIED DIASTOLIC (CONGESTIVE) HEART FAILURE
--- NOTE | 2018-11-20 23:55 | HP ---
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 History of Recent Travel: No Home Medications - Allergies Allergies/Adverse Reactions: Allergies Allergy/AdvReac Type Severity Reaction Status Date / Time No Known Allergies Allergy Verified 11/19/18 20:58 - Home Medications Home Medications: Ambulatory Orders Atorvastatin Ca [Lipitor] 20 mg PO HS 05/28/14 Quetiapine Fumarate [Seroquel -] 300 mg PO HS 05/28/14 metFORMIN HCL [Glucophage -] 500 mg PO BIDAC 09/27/17 Methadone [Dolophine -] 100 mg PO DAILY@0600 MDD 1 02/26/18 Aspirin [ASA -] 325 mg PO DAILY 05/26/18 Losartan Potassium [Cozaar -] 50 mg PO DAILY 05/26/18 Hydrochlorothiazide [Hctz -] 25 mg PO DAILY 05/27/18 Tamsulosin HCl [Flomax -] 0.4 mg PO DAILY 05/27/18 Empagliflozin [Jardiance] 25 mg PO DAILY 11/19/18 Physical Examination Vital Signs: Vital Signs Temperature 98.3 F 11/20/18 22:00 Pulse Rate 73 11/20/18 22:00 Respiratory Rate 20 11/20/18 22:00 Blood Pressure 151/99 11/20/18 22:00 O2 Sat by Pulse Oximetry (%) 97 11/20/18 20:50 Labs: CBC, BMP 11/19/18 22:56 11/19/18 22:59
[2018-11-21] MEDS ORDERED: METHADONE HCL 40 MG DISPERSABLE TABLET ONE (05:42)
[2018-11-21] MEDS ORDERED: METHADONE HCL 10 MG TABLET ONE (05:42)
[2018-11-21] MEDS: METHADONE 80 MG, METHADONE 20 MG PO SCH (05:50)
[2018-11-21] MEDS ORDERED: METHADONE HCL 10 MG TABLET PO SCH (06:00)
[2018-11-21] MEDS: metFORMIN HCL 500 MG TABLET (FP) PO SCH ×2 (06:11→17:05)
[2018-11-21] MEDS: INSULIN SLIDING SCALE (NOVOLOG) 1 VIAL SQ SCH ×3 (06:11→17:43)
[2018-11-21 06:51] LABS: BASO % 0.5 % (0-2.0); EOS % 4.1 % (0-4.5); HEMOGLOBIN 11.8 GM/dL (11.7-16.9); LYMPH % 39.4 % (8-40); MCH 30.7 pg (25.7-33.7); MCHC 33.7 g/dl (32.0-35.9); MONO % 9.4 % (3.8-10.2); NEUT % 46.6 % (42.8-82.8); PLATELET COUNT 321 K/MM3 (134-434); RBC 3.85 M/mm3 (4.00-5.60); RDW 19.8 % (11.9-15.9); WHITE BLOOD COUNT 5.8 K/mm3 (4.0-10.0)
[2018-11-21 07:11] LABS: MAGNESIUM 1.9 mg/dL (1.8-2.4)
[2018-11-21 07:30] LABS: ALBUMIN 3.4 g/dl (3.4-5.0); ALK PHOS 68 U/L (45-117); ANION GAP 8 MMOL/L (8-16); BILIRUBIN,TOTAL 0.3 mg/dL (0.2-1); BLOOD UREA NITROGEN 11.2 mg/dL (7-18); CALCIUM 9.1 mg/dL (8.5-10.1); CHLORIDE 99 mmol/L (98-107); CO2 31 mmol/L (21-32); CREATININE 1.2 mg/dL (0.55-1.3); GLUCOSE,RANDOM 73 mg/dL (74-106); POTASSIUM 4.4 mmol/L (3.5-5.1); SGOT/AST 18 U/L (15-37); SGPT/ALT 18 U/L (13-61); SODIUM 138 mmol/L (136-145); TOT PROT 7.4 g/dl (6.4-8.2)
[2018-11-21] MEDS: HYDROCHLOROTHIAZIDE 25 MG TABLET (FP) PO SCH (09:05)
[2018-11-21] MEDS: LOSARTAN POTASSIUM 50 MG TABLET (FP) PO SCH (09:05)
[2018-11-21] MEDS: TAMSULOSIN HCL 0.4 MG CAP PO SCH (09:05)
[2018-11-21] MEDS: HEPARIN NA (PORCINE) 5,000 UNITS/ML 1ML VIAL SQ SCH (09:06)
[2018-11-21] MEDS ORDERED: ASPIRIN 81 MG CHEWABLE TABLETS PO SCH (10:00)
--- NOTE | 2018-11-21 12:09 | EKG ---
Test Reason : Blood Pressure : / mmHG Vent. Rate : 077 BPM Atrial Rate : 077 BPM P-R Int : 182 ms QRS Dur : 102 ms QT Int : 412 ms P-R-T Axes : 058 088 079 degrees QTc Int : 466 ms SINUS RHYTHM WITH FREQUENT PREMATURE VENTRICULAR COMPLEXES WHEN COMPARED WITH ECG OF 19-NOV-2018 20:33, NO SIGNIFICANT CHANGE WAS FOUND Confirmed by ANNMARIE REYNOSO MD ([id number]) on 11/21/2018 12:09:11 PM Referred By: SAGAR GO DR Confirmed By:ANNMARIE REYNOSO MD
[2018-11-21 14:10] VITALS: BP 114/59; PULSE 85; TEMP 97.8
== END 2018-11-21 18:50 | disposition home or self-care (01) ==
LOC: JER 20:08 → INTOOBSV 23:54 → JERBED 23:54 → UNDOADMOB 23:54 → J4S 11-20 04:07 → JERBED 11-20 04:07 → J4S 11-20 23:55 → JERBED 11-20 23:55
PROVIDERS: ADMIT Internal Medicine; ATTEND Internal Medicine
PROC: 3E033GC Introduction of Other Therapeutic Substance into Peripheral Vein, Percutaneous Approach (ICD-10-PCS; principal; 2018-11-20)
PROC: 3E013GC Introduction of Other Therapeutic Substance into Subcutaneous Tissue, Percutaneous Approach (ICD-10-PCS; 2018-11-20)
DX: R00.2 Palpitations (principal); F10.230 Alcohol dependence with withdrawal, uncomplicated; I11.0 Hypertensive heart disease with heart failure; I50.30 Unspecified diastolic (congestive) heart failure; D64.9 Anemia, unspecified; E11.9 Type 2 diabetes mellitus without complications; E78.5 Hyperlipidemia, unspecified; F32.9 Major depressive disorder, single episode, unspecified; F13.20 Sedative, hypnotic or anxiolytic dependence, uncomplicated; F17.210 Nicotine dependence, cigarettes, uncomplicated; J45.909 Unspecified asthma, uncomplicated; B19.20 Unspecified viral hepatitis C without hepatic coma; F11.20 Opioid dependence, uncomplicated; K74.60 Unspecified cirrhosis of liver; Z79.84 Long term (current) use of oral hypoglycemic drugs; Z86.73 Personal history of transient ischemic attack (TIA), and cerebral infarction without residual deficits; Z79.82 Long term (current) use of aspirin
CPT/HCPCS: 36415; 71045-TC-FY; 78452-TC; 80053; 80061; 81003; 82550; 82553; 82962; 83036; 83721; 83735; 84100; 84443; 84484; 85025; 85610; 93005; 93010; 93017; 93306-TC; 96372; 96374; 96376; 99285-25; A9502; G0378; J1644

== ENCOUNTER 2018-11-22 20:22 | Emergency (ER) | payer OTHER ==
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
[2018-11-22 21:21] VITALS: TEMP 98.9
--- NOTE | 2018-11-22 21:27 | PDOC ---
Attending Attestation - Resident Resident Name: Osiel Martinez - ED Attending Attestation I have performed the following: I have examined & evaluated the patient, The case was reviewed & discussed with the resident, I agree w/resident's findings & plan - HPI HPI: 11/22/18 22:07 68 yo black male with PMHx substance abuse (now on methadone; denies having used cocaine for years); HTN; DM, s/p CVA (hx left caudate body lacunar infarct ; bilateral cerebellar infarcts), hyperlipidemia;diastolic CHF; BPH; ? hepatitis C; obesity; depression, insomnia; cigarette smoker, alcoholism, anemia (s/p ?GI bleed in past years), Recent admission for CP and palpitations/ ventricular bigeminy (followup this week with cards) Dcd yesterday, unremarkable workup. Today - chest tightness, nausea He admits to symptoms developing after consuming distasteful fish. Metoprolol - new medication. PMD: Dr. Ho Zabala. Production Honing Machine Operator: Dr. Gisele Tamayo. - Physicial Exam PE: 11/22/18 22:06 Agree with the resident's HPI and PE as documented in the electronic medical record. NAD, well appearing, EOMI, PERRL, MMM, nl conjunctiva, anicteric; neck supple. lungs clear, RRR, abdomen soft +RLQ tenderness, midline ex lap scar. no rebound or guarding. no CVAT. Back nontender. TOTH x4, no focal neuro deficits. No peripheral edema. normal color for ethnicity, WWP. 11/22/18 22:09 - Medical Decision Making 11/22/18 22:08 See HPI for details. Prior notes reviewed, including admissions, discharges and consultations. Vital signs reviewed, wnl. Vital Signs Temp Pulse Resp BP Pulse Ox 98.9 F 96 H 22 H 154/78 96 11/22/18 21:18 11/22/18 21:18 11/22/18 21:18 11/22/18 21:18 11/22/18 21:18 ddx ACS, arrhythmia, electrolyte/metabolic derangements, dehydration, food poisoning, appy, diverticulitis, infection. laboratory results and imaging reviewed, basic labs and lytes wnl, LFTs/lipase_ unremarkable CXR_no acute chest pathology Cardiac panel_neg trop,cardiac profile EKG normal sinus rhythm at 68 bpm, no interval abnormalities, narrow QRS, ST and T wave segments and morphology normal. Nonspecific T wave abnormalities infrequent PVC x1. CT a/p neg for acute pathology. ureteral stent in place, pt aware of stent incidental findings noted, hemangioma no acute symptoms here no recurrent cp/sob abdomen exam unremarkable on repeat. discharge stable condition, return precautions, supportive care/hydration, PCP and cards followup. has appt on Saturday with Primary signing agent. Dr. Gisele Tamayo. 11/23/18 01:46 11/23/18 01:48 Heart Score/ECG Review #1 ECG reviewed & interpreted by me at: 20:25 General ECG Interpretation: Sinus Rhythm, Normal Rate, Normal Intervals Compared to previous ECG there are: Changes noted 11/22/18 22:09 EKG normal sinus rhythm at 68 bpm, no interval abnormalities, narrow QRS, ST and T wave segments and morphology normal. Nonspecific T wave abnormalities infrequent PVC x1.
[2018-11-22 21:33] VITALS: BMI 71.6
[2018-11-22] MEDS ORDERED: MAG HYDROX/AL HYDROX/SIMETH 30 ML UNIT-DOSE CUP ONE (21:52)
[2018-11-22] MEDS ORDERED: QUEtiapine FUMARATE 300 MG TABLET PO ONE (22:03)
[2018-11-22] MEDS ORDERED: SODIUM CHLORIDE 0.9% 500 ML INFUS.BAG IV ONE (22:04)
[2018-11-22 22:49] LABS: BASO % 2.2 % (0-2.0); EOS % 1.3 % (0-4.5); HEMATOCRIT 36.1 % (35.4-49); HEMOGLOBIN 11.9 GM/dL (11.7-16.9); LYMPH % 19.7 % (8-40); MCH 30.3 pg (25.7-33.7); MCHC 32.9 g/dl (32.0-35.9); MEAN CELL VOLUME 92.3 fl (80-96); MEAN PLT VOLUME 7.3 fl (7.5-11.1); MONO % 8.1 % (3.8-10.2); NEUT % 68.7 % (42.8-82.8); PLATELET COUNT 366 K/MM3 (134-434); RBC 3.91 M/mm3 (4.00-5.60); RDW 20.5 % (11.9-15.9); WHITE BLOOD COUNT 8.7 K/mm3 (4.0-10.0)
[2018-11-22] MEDS ORDERED: QUEtiapine FUMARATE 100 MG TABLET (FP) ONE ×2 (22:55→23:00)
[2018-11-22 23:21] LABS: ANISOCYTOSIS 1+; MACROCYTOSIS 1+
[2018-11-22 23:40] LABS: ALBUMIN 3.6 g/dl (3.4-5.0); ALK PHOS 69 U/L (45-117); ANION GAP 6 MMOL/L (8-16); BILIRUBIN,TOTAL 0.3 mg/dL (0.2-1); BLOOD UREA NITROGEN 16.4 mg/dL (7-18); CHLORIDE 98 mmol/L (98-107); CO2 31 mmol/L (21-32); CREATININE 1.2 mg/dL (0.55-1.3); GLUCOSE,RANDOM 78 mg/dL (74-106); POTASSIUM 4.3 mmol/L (3.5-5.1); SGOT/AST 26 U/L (15-37); SGPT/ALT 20 U/L (13-61); SODIUM 135 mmol/L (136-145); TOT PROT 7.7 g/dl (6.4-8.2)
[2018-11-23 01:09] LABS: URINE APPEARANCE Clear; URINE BILIRUBIN Negative (NEGATIVE); URINE COLOR Yellow; URINE GLUCOSE (UA) Negative (NEGATIVE); URINE KETONE Negative (NEGATIVE); URINE LEUK ESTERASE Trace (NEGATIVE); URINE NITRITE Negative (NEGATIVE); URINE PROTEIN Trace (NEGATIVE); URINE UROBILINOGEN 0.2 mg/dL (0.2-1.0)
[2018-11-23 02:51] VITALS: BP 147/83; PULSE 88
[2018-11-23 04:40] LABS: EPI CELLS FEW /HPF (0-5/HPF)
--- NOTE | 2018-11-23 11:35 | EKG ---
Test Reason : Blood Pressure : / mmHG Vent. Rate : 068 BPM Atrial Rate : 068 BPM P-R Int : 174 ms QRS Dur : 098 ms QT Int : 416 ms P-R-T Axes : 050 078 057 degrees QTc Int : 442 ms SINUS RHYTHM WITH OCCASIONAL PREMATURE VENTRICULAR COMPLEXES OTHERWISE NORMAL ECG WHEN COMPARED WITH ECG OF 21-NOV-2018 09:03, NO SIGNIFICANT CHANGE WAS FOUND Confirmed by ANNMARIE REYNOSO MD ([id number]) on 11/23/2018 11:34:49 AM Referred By: Confirmed By:ANNMARIE REYNOSO MD
== END 2018-11-23 02:27 | disposition home or self-care (01) ==
LOC: JER 20:22
DX: R07.89 Other chest pain (principal); I25.10 Atherosclerotic heart disease of native coronary artery without angina pectoris; I11.0 Hypertensive heart disease with heart failure; I50.30 Unspecified diastolic (congestive) heart failure; F17.210 Nicotine dependence, cigarettes, uncomplicated; E78.5 Hyperlipidemia, unspecified; E11.9 Type 2 diabetes mellitus without complications; F32.9 Major depressive disorder, single episode, unspecified; E66.01 Morbid (severe) obesity due to excess calories; Z68.45 Body mass index [BMI] 70 or greater, adult; D64.9 Anemia, unspecified; N40.0 Benign prostatic hyperplasia without lower urinary tract symptoms; Z86.73 Personal history of transient ischemic attack (TIA), and cerebral infarction without residual deficits; F11.20 Opioid dependence, uncomplicated; K74.60 Unspecified cirrhosis of liver; G47.00 Insomnia, unspecified; Z87.19 Personal history of other diseases of the digestive system; Z79.84 Long term (current) use of oral hypoglycemic drugs
CPT/HCPCS: 36415; 71045-TC-FY; 74177-TC; 80053; 81003; 82550; 82553; 83605; 84484; 85025; 93005; 93010; 99283-25

== ENCOUNTER 2018-11-25 19:19 | Inpatient (IN) | payer OTHER ==
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
[2018-11-25 21:13] LABS: BASO % 0.9 % (0-2.0); HEMATOCRIT 33.2 % (35.4-49); HEMOGLOBIN 11.1 GM/dL (11.7-16.9); LYMPH % 33.6 % (8-40); MCH 30.5 pg (25.7-33.7); MCHC 33.5 g/dl (32.0-35.9); MEAN CELL VOLUME 90.9 fl (80-96); MONO % 10.2 % (3.8-10.2); NEUT % 51.3 % (42.8-82.8); PLATELET COUNT 307 K/MM3 (134-434); RBC 3.65 M/mm3 (4.00-5.60); RDW 19.6 % (11.9-15.9); WHITE BLOOD COUNT 5.6 K/mm3 (4.0-10.0)
[2018-11-25 21:47] LABS: ALBUMIN 3.7 g/dl (3.4-5.0); BILIRUBIN,TOTAL 0.3 mg/dL (0.2-1); BLOOD UREA NITROGEN 15.2 mg/dL (7-18); CALCIUM 8.8 mg/dL (8.5-10.1); CREATININE 1.5 mg/dL (0.55-1.3); MAGNESIUM 1.6 mg/dL (1.8-2.4); POTASSIUM 3.9 mmol/L (3.5-5.1); TOT PROT 7.7 g/dl (6.4-8.2)
[2018-11-25] MEDS ORDERED: ASPIRIN 81 MG CHEWABLE TABLETS PO ONE (22:05)
--- NOTE | 2018-11-25 22:05 | PDOC ---
Documentation entered by Ashley Carolina SCRIBE, acting as scribe for Megha Raya DO. Megha Raya DO: This documentation has been prepared by the Caity prabhakar Adrianna, SCRIBE, under my direction and personally reviewed by me in its entirety. I confirm that the documentation accurately reflects all work, treatment, procedures, and medical decision making performed by me. Attending Attestation - Resident Resident Name: Omi Light - ED Attending Attestation I have performed the following: I have examined & evaluated the patient, The case was reviewed & discussed with the resident, I agree w/resident's findings & plan - HPI HPI: 68 yo black male with PMHx substance abuse (now on methadone; denies having used cocaine for years), HTN, DM, s/p CVA (hx left caudate body lacunar infarct & bilateral cerebellar infarcts), HLD, diastolic CHF, BPH, hepatitis C, obesity , depression, insomnia, alcoholism, and anemia, presenting with chest pain. Patient endorses exertional chest pressure with associated palpitations and SOB , which resolved prior to arrival. Allergies: NKA, NKDA Surgical History: Social History: Current smoker, alcoholism PCP: Dr. Ho Zabala. Family Services Manager: Dr. Gisele Tamayo - Physicial Exam PE: Agree with resident exam. - Medical Decision Making 11/25/18 22:04 68 yo male with CP and palpitations EKG is NSR with PVC's plan for CXR and labs admit for serial troponins
[2018-11-25 22:16] LABS: INR 1.08 (0.83-1.09); PROTHROMBIN TIME (PATIENT) 12.8 SEC (9.7-13.0)
[2018-11-25] MEDS ORDERED: ASPIRIN 81 MG CHEWABLE TABLETS ONE (22:23)
[2018-11-26] MEDS ORDERED: QUEtiapine FUMARATE 50 MG TABLET PO ONE (00:56)
[2018-11-26] MEDS ORDERED: QUEtiapine FUMARATE 25 MG TABLET (FP) ONE (01:11)
[2018-11-26] MEDS ORDERED: sitaGLIPtin PHOSPHATE 50 MG TABLET ONE (05:39)
[2018-11-26] MEDS ORDERED: METHADONE HCL 10 MG TABLET PO SCH ×2 (06:00→12:30)
[2018-11-26] MEDS: INSULIN SLIDING SCALE (NOVOLOG) 1 VIAL SQ SCH ×4 (06:27→21:41)
[2018-11-26 07:39] LABS: EOS % 5.8 % (0-4.5); HEMATOCRIT 33.9 % (35.4-49); HEMOGLOBIN 11.2 GM/dL (11.7-16.9); MCH 30.5 pg (25.7-33.7); MCHC 33.1 g/dl (32.0-35.9); MEAN CELL VOLUME 92.2 fl (80-96); MEAN PLT VOLUME 7.5 fl (7.5-11.1); MONO % 12.6 % (3.8-10.2); NEUT % 46.6 % (42.8-82.8); PLATELET COUNT 303 K/MM3 (134-434); RBC 3.68 M/mm3 (4.00-5.60); RDW 19.9 % (11.9-15.9); WHITE BLOOD COUNT 4.3 K/mm3 (4.0-10.0)
[2018-11-26 08:27] LABS: ALBUMIN 3.4 g/dl (3.4-5.0); ALK PHOS 60 U/L (45-117); ANION GAP 7 MMOL/L (8-16); BILIRUBIN,TOTAL 0.3 mg/dL (0.2-1); BLOOD UREA NITROGEN 16.1 mg/dL (7-18); CALCIUM 8.8 mg/dL (8.5-10.1); CHLORIDE 102 mmol/L (98-107); CO2 28 mmol/L (21-32); CREATININE 1.3 mg/dL (0.55-1.3); GLUCOSE,RANDOM 70 mg/dL (74-106); SGOT/AST 22 U/L (15-37); SGPT/ALT 17 U/L (13-61); SODIUM 138 mmol/L (136-145); TOT PROT 7.2 g/dl (6.4-8.2)
[2018-11-26] MEDS: TAMSULOSIN HCL 0.4 MG CAP PO SCH (08:39)
[2018-11-26] MEDS: HYDROCHLOROTHIAZIDE 25 MG TABLET (FP) PO SCH (09:40)
[2018-11-26] MEDS: DOCUSATE SODIUM 100 MG CAPSULE (FP) PO SCH (09:40)
[2018-11-26] MEDS: PANTOPRAZOLE 40 MG TABLET (FP) PO SCH (09:40)
[2018-11-26] MEDS: ASPIRIN 325 MG TABLET PO SCH (09:40)
[2018-11-26] MEDS: HEPARIN NA (PORCINE) 5,000 UNITS/ML 1ML VIAL SQ SCH ×2 (09:40→21:41)
[2018-11-26] MEDS ORDERED: PATIENT'S OWN MEDICATION (NON-FORMULARY) (Empagliflozin [Jardiance] 25 MG) PO SCH (10:00)
[2018-11-26] MEDS ORDERED: FERROUS SULFATE PO SCH (10:00)
[2018-11-26] MEDS ORDERED: FERROUS SO4 325 MG TABLET (FP) PO SCH ×2 (10:00)
--- NOTE | 2018-11-26 12:13 | EKG ---
Test Reason : Blood Pressure : / mmHG Vent. Rate : 070 BPM Atrial Rate : 070 BPM P-R Int : 178 ms QRS Dur : 098 ms QT Int : 420 ms P-R-T Axes : 060 084 066 degrees QTc Int : 453 ms SINUS RHYTHM WITH FREQUENT PREMATURE VENTRICULAR COMPLEXES OTHERWISE NORMAL ECG WHEN COMPARED WITH ECG OF 22-NOV-2018 20:26, NO SIGNIFICANT CHANGE WAS FOUND Confirmed by NATA MURPHY, JACKIE ([id number]) on 11/26/2018 12:13:00 PM Referred By: Confirmed By:JACKIE PEACE MD
[2018-11-26] MEDS ORDERED: METHADONE HCL 40 MG DISPERSABLE TABLET ONE (12:24)
[2018-11-26] MEDS ORDERED: METHADONE HCL 10 MG TABLET ONE (12:24)
[2018-11-26] MEDS: METHADONE 80 MG, METHADONE 20 MG PO SCH (12:30)
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
[2018-11-26 19:00] VITALS: BMI 35.7
--- NOTE | 2018-11-26 19:49 | HP ---
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 History of Recent Travel: No Home Medications - Allergies Allergies/Adverse Reactions: Allergies Allergy/AdvReac Type Severity Reaction Status Date / Time No Known Allergies Allergy Verified 12/06/18 20:02 - Home Medications Home Medications: Ambulatory Orders Atorvastatin Ca [Lipitor] 20 mg PO HS 05/28/14 Tamsulosin HCl [Flomax -] 0.4 mg PO DAILY 05/27/18 Ferrous Sulfate 1 gm PO DAILY 11/25/18 Linaclotide [Linzess] 72 mcg PO DAILY 11/25/18 Sitagliptin Phos/Metformin HCl [Janumet 50-1,000 mg Tablet] 1 tab PO DAILY 11/25 Methadone 100 mg PO DAILY 12/07/18 Aspirin [Aspirin EC] 81 mg PO DAILY #30 tablet.dr 12/09/18 Clopidogrel Bisulfate [Plavix -] 75 mg PO DAILY tablet 12/09/18 Docusate Sodium [Colace] 100 mg PO TID #90 capsule 12/09/18 Ferrous Sulfate [Feosol] 325 mg PO BID ud 12/09/18 Isosorbide Mononitrate [Imdur -] 30 mg PO DAILY #30 tab.sr.24h 12/09/18 Lisinopril [Prinivil] 5 mg PO DAILY tablet 12/09/18 Methadone [Dolophine -] 100 mg PO DAILY@0600 #30 tablet MDD 1 12/09/18 Quetiapine Fumarate [Seroquel -] 300 mg PO HS tablet 12/09/18 Physical Examination Vital Signs: Vital Signs Temperature 97.7 F 11/26/18 18:48 Pulse Rate 84 11/26/18 18:48 Respiratory Rate 18 11/26/18 18:48 Blood Pressure 152/68 11/26/18 18:48 O2 Sat by Pulse Oximetry (%) 97 11/26/18 18:48 Labs: CBC, BMP 11/26/18 05:50 11/26/18 05:50 Problem List - Problems (1) Anemia Code(s): D64.9 - ANEMIA, UNSPECIFIED (2) Anxiety and depression Code(s): F41.9 - ANXIETY DISORDER, UNSPECIFIED; F32.9 - MAJOR DEPRESSIVE DISORDER, SINGLE EPISODE, UNSPECIFIED (3) CVA (cerebral vascular accident) Code(s): I63.9 - CEREBRAL INFARCTION, UNSPECIFIED (4) Chest pain Code(s): R07.9 - CHEST PAIN, UNSPECIFIED (5) Diabetes Code(s): E11.9 - TYPE 2 DIABETES MELLITUS WITHOUT COMPLICATIONS (6) Hyperlipidemia Code(s): E78.5 - HYPERLIPIDEMIA, UNSPECIFIED (7) Obesity Code(s): E66.9 - OBESITY, UNSPECIFIED (8) Essential hypertension Code(s): I10 - ESSENTIAL (PRIMARY) HYPERTENSION (9) Methadone maintenance therapy patient Code(s): F11.20 - OPIOID DEPENDENCE, UNCOMPLICATED
[2018-11-26] MEDS ORDERED: QUEtiapine FUMARATE 300 MG TABLET PO SCH (22:00)
[2018-11-26] MEDS ORDERED: ATORVASTATIN CA 20 MG TABLET (FP) PO SCH (22:00)
[2018-11-27] MEDS ORDERED: METHADONE HCL 10 MG TABLET ONE (05:13)
[2018-11-27] MEDS ORDERED: METHADONE HCL 40 MG DISPERSABLE TABLET ONE (05:13)
[2018-11-27] MEDS: METHADONE 80 MG, METHADONE 20 MG PO SCH (05:42)
[2018-11-27] MEDS: INSULIN SLIDING SCALE (NOVOLOG) 1 VIAL SQ SCH ×2 (06:35→12:39)
[2018-11-27] MEDS: HYDROCHLOROTHIAZIDE 25 MG TABLET (FP) PO SCH (09:16)
[2018-11-27] MEDS: PANTOPRAZOLE 40 MG TABLET (FP) PO SCH (09:16)
[2018-11-27] MEDS: HEPARIN NA (PORCINE) 5,000 UNITS/ML 1ML VIAL SQ SCH (09:16)
[2018-11-27] MEDS: ASPIRIN 325 MG TABLET PO SCH (09:16)
[2018-11-27] MEDS: DOCUSATE SODIUM 100 MG CAPSULE (FP) PO SCH (09:16)
[2018-11-27] MEDS: TAMSULOSIN HCL 0.4 MG CAP PO SCH (09:16)
[2018-11-27 10:38] VITALS: BP 143/76; PULSE 64; TEMP 98.3
--- NOTE | 2018-11-27 15:40 | PN ---
Progress Note, Physician Chief Complaint: Pt A&Ox3; ambulates without chest pain or dyspnea. History of Present Illness: 68 yo black male with PMHx substance abuse (now on methadone; denies having used cocaine for years), HTN, DM, s/p CVA (hx left caudate body lacunar infarct & bilateral cerebellar infarcts), HLD, diastolic CHF, BPH, hepatitis C, obesity , depression, insomnia, alcoholism, and anemia, presenting with chest pain. Patient endorses exertional chest pressure with associated palpitations and SOB , which resolved prior to arrival. Pt was addmited last week for similar symptoms; a stress MIBI was positive for inferior wall ischemia. Pt deferred coronary angiogram at that time. Allergies: NKA, NKDA Surgical History: Social History: Current smoker, alcoholism PCP: Dr. Ho Zabala. Tile Grader: Dr. Gisele Tamayo - Objective Vital Signs: Vital Signs Temperature 98.3 F 11/27/18 09:00 Pulse Rate 64 11/27/18 09:00 Respiratory Rate 18 11/27/18 09:00 Blood Pressure 143/76 11/27/18 09:00 O2 Sat by Pulse Oximetry (%) 96 11/27/18 09:00 Constitutional: Yes: Obese Eyes: Yes: WNL HENT: Yes: WNL Neck: Yes: WNL Cardiovascular: Yes: S1, S2, S4 Respiratory: Yes: Regular Gastrointestinal: Yes: Soft ...Rectal Exam: Yes: Deferred Genitourinary: No: Anuria Musculoskeletal: Yes: WNL Extremities: Yes: WNL Edema: No Peripheral Pulses WNL: Yes Integumentary: Yes: WNL Neurological: Yes: WNL ...Motor Strength: WNL Psychiatric: Yes: WNL Labs: CBC, BMP 11/26/18 05:50 11/26/18 05:50 INR, PTT INR 1.08 (0.83-1.09) 11/25/18 20:52 - ....Imaging Chest X-ray: Image Reviewed EKG: Image Reviewed Problem List - Problems (1) ACS (acute coronary syndrome) Assessment/Plan: Stress MIBI 11/21/2018: moderate area of mildly intense inferior, small area of mildly intense inferolateral ischemia. Pt agress to be transferred to [facility] for coronary angiogram. Code(s): I24.9 - ACUTE ISCHEMIC HEART DISEASE, UNSPECIFIED (2) Diastolic CHF Code(s): I50.30 - UNSPECIFIED DIASTOLIC (CONGESTIVE) HEART FAILURE (3) Nicotine dependence Code(s): F17.200 - NICOTINE DEPENDENCE, UNSPECIFIED, UNCOMPLICATED Qualifiers: (4) Alcohol dependence Assessment/Plan: detox/rehabilitation protocol. Code(s): F10.20 - ALCOHOL DEPENDENCE, UNCOMPLICATED (5) DM Diabetes mellitus type 2 Code(s): E11.9 - TYPE 2 DIABETES MELLITUS WITHOUT COMPLICATIONS (6) Cerebellar infarct Code(s): I63.9 - CEREBRAL INFARCTION, UNSPECIFIED (7) Hyperlipidemia Assessment/Plan: On atorvastatin. Code(s): E78.5 - HYPERLIPIDEMIA, UNSPECIFIED
== END 2018-11-27 14:07 | disposition short-term general hospital (02) | DRG 311 ==
LOC: JER 19:19 → JERBED 23:14 → OBSVTOIN 23:14 → J4W 11-26 18:34
PROVIDERS: ADMIT Internal Medicine; ATTEND Internal Medicine
DX: I24.9 Acute ischemic heart disease, unspecified (principal); F11.20 Opioid dependence, uncomplicated; I50.32 Chronic diastolic (congestive) heart failure; I11.0 Hypertensive heart disease with heart failure; F10.20 Alcohol dependence, uncomplicated; E11.9 Type 2 diabetes mellitus without complications; F17.210 Nicotine dependence, cigarettes, uncomplicated; E66.9 Obesity, unspecified; N40.0 Benign prostatic hyperplasia without lower urinary tract symptoms; G47.00 Insomnia, unspecified; D64.9 Anemia, unspecified; B19.20 Unspecified viral hepatitis C without hepatic coma; F32.9 Major depressive disorder, single episode, unspecified; E78.5 Hyperlipidemia, unspecified; Z86.73 Personal history of transient ischemic attack (TIA), and cerebral infarction without residual deficits; Z87.11 Personal history of peptic ulcer disease; Z68.35 Body mass index [BMI] 35.0-35.9, adult
CPT/HCPCS: 36415; 71045-TC-FY; 76700-TC; 80053; 82550; 82553; 82962; 83735; 84484; 85025; 85610; 93005; 93010; 99285-25; J1644

== ENCOUNTER 2018-12-06 19:53 | Inpatient (IN) | payer OTHER ==
[2018-12-06 20:07] VITALS: BMI 35.4
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
[2018-12-06] MEDS ORDERED: ASPIRIN 81 MG CHEWABLE TABLETS PO ONE (20:28)
[2018-12-06] MEDS ORDERED: ASPIRIN 81 MG CHEWABLE TABLETS ONE (20:35)
[2018-12-06 21:44] LABS: BASO % 1.2 % (0-2.0); EOS % 2.2 % (0-4.5); HEMATOCRIT 35.4 % (35.4-49); HEMOGLOBIN 11.7 GM/dL (11.7-16.9); LYMPH % 28.5 % (8-40); MCH 30.4 pg (25.7-33.7); MCHC 33.1 g/dl (32.0-35.9); MEAN CELL VOLUME 91.8 fl (80-96); MEAN PLT VOLUME 7.1 fl (7.5-11.1); MONO % 8.4 % (3.8-10.2); NEUT % 59.7 % (42.8-82.8); PLATELET COUNT 298 K/MM3 (134-434); RBC 3.85 M/mm3 (4.00-5.60); RDW 19.5 % (11.9-15.9)
--- NOTE | 2018-12-06 22:11 | PDOC ---
Documentation entered by Gilles Frank SCRIBE, acting as scribe for Leslie Root MD. Leslie Root MD: This documentation has been prepared by the Zac prabhakar Nirvannie, SCRIBE, under my direction and personally reviewed by me in its entirety. I confirm that the documentation accurately reflects all work, treatment, procedures, and medical decision making performed by me. Attending Attestation - Resident Resident Name: Paul Nair - ED Attending Attestation I have performed the following: I have examined & evaluated the patient, The case was reviewed & discussed with the resident, I agree w/resident's findings & plan - HPI HPI: 12/06/18 21:56 Mr. Laureano is a 68-year-old male history of hypertension, hyperlipidemia, prior CVA, nvp-bojwjyi-jyoadyaat diabetes, 1 week status post cardiac stent done for positive stress test. Patient presents to the emergency department with midsternal chest pressure, no associated radiation to the arm jaw or back He would describe his pain as 9/10 This is very similar to his last episode of brought him to the hospital except this time it lasted a shorter period of time open with this (45 minutes) and this time it was not associated with diaphoresis Symptoms began at approximately 6 PM after he returned from shopping at [employer] and was seated in his couch He denies any recent nausea, vomit, diarrhea or constipation. Allergies: NKDA Primary Care Physician: Dr. Kathrin Zabala 12/06/18 22:05 - Physicial Exam PE: 12/06/18 22:02 GENERAL: The patient is in no acute distress. ENT: Ears normal, nares patent, oropharynx clear without exudates. Moist mucous membranes. NECK: Normal range of motion LUNGS: Breath sounds equal, clear to auscultation bilaterally. No wheezes, and no crackles. HEART:Regular rate and rhythm, normal S1 and S2 without murmur, rub or gallop. ABDOMEN: Soft, nontender, normoactive bowel sounds. EXTREMITIES: Normal range of motion, no edema. NEUROLOGICAL: Cranial nerves II through XII grossly intact. Normal speech. No focal neurological deficits. SKIN: Warm, Dry, normal turgor, no rashes or lesions noted. - Medical Decision Making 12/06/18 22:02 EKG: Normal sinus rhythm, rate of 88 bpm, right axis deviation, no ST elevation or depression, T waves are upright 12/06/18 22:10 Laboratory Tests 12/06/18 21:36 WBC 6.0 Hgb 11.7 Hct 35.4 Plt Count 298 12/06/18 22:11 Chest x-ray: No mediastinal widening, no effusion, no pneumothorax, no infiltrate noted 12/06/18 22:20 Laboratory Tests 12/06/18 12/06/18 21:36 21:36 WBC 6.0 Hgb 11.7 Hct 35.4 Plt Count 298 BUN 19.4 H Creatinine 1.5 H Creatine Kinase 254 Troponin I < 0.02 Will admit to the hospital for chest pain
[2018-12-06 22:15] LABS: ALBUMIN 3.9 g/dl (3.4-5.0); ALK PHOS 66 U/L (45-117); ANION GAP 8 MMOL/L (8-16); BILIRUBIN,TOTAL 0.4 mg/dL (0.2-1); BLOOD UREA NITROGEN 19.4 mg/dL (7-18); CALCIUM 8.9 mg/dL (8.5-10.1); CHLORIDE 97 mmol/L (98-107); CO2 30 mmol/L (21-32); CREATININE 1.5 mg/dL (0.55-1.3); GLUCOSE,RANDOM 72 mg/dL (74-106); POTASSIUM 4.2 mmol/L (3.5-5.1); SGOT/AST 22 U/L (15-37); SGPT/ALT 20 U/L (13-61); SODIUM 136 mmol/L (136-145); TOT PROT 7.8 g/dl (6.4-8.2)
[2018-12-07] MEDS ORDERED: METHADONE HCL 10 MG TABLET PO SCH (09:30)
[2018-12-07] MEDS ORDERED: METHADONE HCL 10 MG TABLET ONE (09:46)
[2018-12-07] MEDS ORDERED: METHADONE HCL 40 MG DISPERSABLE TABLET ONE (09:46)
[2018-12-07] MEDS: HYDROCHLOROTHIAZIDE 25 MG TABLET (FP) PO SCH (09:51)
[2018-12-07] MEDS: ASPIRIN 325 MG TABLET PO SCH (09:51)
[2018-12-07] MEDS: HEPARIN NA (PORCINE) 5,000 UNITS/ML 1ML VIAL SQ SCH ×2 (09:51→21:00)
[2018-12-07] MEDS: METHADONE 80 MG, METHADONE 20 MG PO SCH (09:52)
[2018-12-07] MEDS ORDERED: FERROUS SULFATE PO SCH (10:00)
[2018-12-07] MEDS: TAMSULOSIN HCL 0.4 MG CAP PO SCH (10:15)
[2018-12-07 10:27] LABS: ANION GAP 9 MMOL/L (8-16); BLOOD UREA NITROGEN 21.3 mg/dL (7-18); CALCIUM 9.3 mg/dL (8.5-10.1); CHLORIDE 96 mmol/L (98-107); CO2 30 mmol/L (21-32); CREATININE 1.3 mg/dL (0.55-1.3); GLUCOSE,RANDOM 103 mg/dL (74-106); POTASSIUM 4.4 mmol/L (3.5-5.1); SODIUM 135 mmol/L (136-145)
--- NOTE | 2018-12-07 10:30 | CON.CARD ---
Cardiology Consult (text) - Consultation Consultation Note: cc: cp hpi: 68 m hx ex drug abuse on methadone, htn, dm, cva, hld, smoking, cad s/p pci earlier this month after cp with +mibi, here with cp. [place] in mall and noticed central chest pressure. Called ems and came to ER. CP resolved shortly after. No sob palps dizzy loc pnd orthopnea le edema. Sees dr churchill for cardio. pmh: per hpi psh: pci social: +tob ros: per hpi; all others nl fam: no premature cad, scd meds: Home Medications Medication Instructions Recorded Atorvastatin Ca [Lipitor] 20 mg PO HS 05/28/14 Aspirin [ASA -] 325 mg PO DAILY 05/26/18 Hydrochlorothiazide [Hctz -] 25 mg PO DAILY 05/27/18 Tamsulosin HCl [Flomax -] 0.4 mg PO DAILY 05/27/18 Empagliflozin [Jardiance] 25 mg PO DAILY 11/19/18 Ferrous Sulfate 1 gm PO DAILY 11/25/18 Linaclotide [Linzess] 72 mcg PO DAILY 11/25/18 Sitagliptin Phos/Metformin HCl 1 tab PO DAILY 11/25/18 [Janumet 50-1,000 mg Tablet] Methadone 100 mg PO DAILY 12/07/18 Current Medications Generic Name Dose Route Start Last Admin Trade Name Freq PRN Reason Stop Dose Admin Aspirin 325 mg 12/07/18 10:00 12/07/18 09:51 Asa - PO 325 mg DAILY EZRA Administration Atorvastatin Calcium 20 mg 12/07/18 22:00 Lipitor - PO HS [facility] Clopidogrel Bisulfate 75 mg 12/07/18 10:45 Plavix - PO DAILY [facility] Heparin Sodium (Porcine) 5,000 unit 12/07/18 10:00 12/07/18 09:51 Heparin - SQ 5,000 unit BID EZRA Administration Hydrochlorothiazide 25 mg 12/07/18 10:00 12/07/18 09:51 Hctz - PO 25 mg DAILY EZRA Administration Insulin Aspart 1 vial 12/07/18 11:00 Novolog Vial Sliding Scale - SQ ACHS [facility] Protocol Metformin HCl 1,000 mg 12/07/18 16:30 Glucophage - PO BID@0700,1630 [facility] Methadone HCl 80 mg/ Methadone 100 mg 12/07/18 09:30 12/07/18 09:52 HCl 20 mg PO 100 mg DAILY@0600 EZRA Administration Non-Formulary Medication 1 gm 12/07/18 10:00 Ferrous Sulfate [Ferrous Sulfate] PO DAILY [facility] Sitagliptin Phosphate 100 mg 12/08/18 07:00 Januvia - PO DAILY@0700 [facility] Tamsulosin HCl 0.4 mg 12/07/18 10:00 12/07/18 10:15 Flomax - PO 0.4 mg DAILY@0830 EZRA Administration pe: Vital Signs Period Temp Pulse Resp BP Sys/Ordaz Pulse Ox Last 24 Hr 97.7 F-98.3 F 50-81 18-18 119-136/61-78 96-99 nad no jvd rrr s1x2 no mrg cta bl nl eff aao3 no le e/c/c abd nt nd pos bs no jaundice diaphoresis pos dp pt no carotid bruits Laboratory Last Values WBC 6.0 K/mm3 (4.0-10.0) 12/06/18 21:36 RBC 3.85 M/mm3 (4.00-5.60) L 12/06/18 21:36 Hgb 11.7 GM/dL (11.7-16.9) 12/06/18 21:36 Hct 35.4 % (35.4-49) 12/06/18 21:36 MCV 91.8 fl (80-96) 12/06/18 21:36 MCH 30.4 pg (25.7-33.7) 12/06/18 21:36 MCHC 33.1 g/dl (32.0-35.9) 12/06/18 21:36 RDW 19.5 % (11.9-15.9) H 12/06/18 21:36 Plt Count 298 K/MM3 (134-434) 12/06/18 21:36 MPV 7.1 fl (7.5-11.1) L 12/06/18 21:36 Absolute Neuts (auto) 3.6 K/mm3 (1.5-8.0) 12/06/18 21:36 Neutrophils % 59.7 % (42.8-82.8) D 12/06/18 21:36 Lymphocytes % 28.5 % (8-40) 12/06/18 21:36 Monocytes % 8.4 % (3.8-10.2) 12/06/18 21:36 Eosinophils % 2.2 % (0-4.5) 12/06/18 21:36 Basophils % 1.2 % (0-2.0) 12/06/18 21:36 Nucleated RBC % 0 % (0-0) 12/06/18 21:36 Sodium 135 mmol/L (136-145) L 12/07/18 09:30 Potassium 4.4 mmol/L (3.5-5.1) 12/07/18 09:30 Chloride 96 mmol/L (98-107) L 12/07/18 09:30 Carbon Dioxide 30 mmol/L (21-32) 12/07/18 09:30 Anion Gap 9 MMOL/L (8-16) 12/07/18 09:30 BUN 21.3 mg/dL (7-18) H 12/07/18 09:30 Creatinine 1.3 mg/dL (0.55-1.3) 12/07/18 09:30 Est GFR (CKD-EPI)AfAm 64.52 12/07/18 09:30 Est GFR (CKD-EPI)NonAf 55.67 12/07/18 09:30 Random Glucose 103 mg/dL (74-106) 12/07/18 09:30 Calcium 9.3 mg/dL (8.5-10.1) 12/07/18 09:30 Total Bilirubin 0.4 mg/dL (0.2-1) 12/06/18 21:36 AST 22 U/L (15-37) 12/06/18 21:36 ALT 20 U/L (13-61) 12/06/18 21:36 Alkaline Phosphatase 66 U/L (45-117) 12/06/18 21:36 Creatine Kinase 243 U/L (26-308) 12/07/18 09:30 Creatine Kinase Index 1.3 % (0.0-5.0) 12/06/18 21:36 CK-MB (CK-2) 3.5 ng/mL (0.5-3.6) 12/06/18 21:36 Troponin I < 0.02 ng/ml (0.00-0.05) 12/07/18 09:30 Total Protein 7.8 g/dl (6.4-8.2) 12/06/18 21:36 Albumin 3.9 g/dl (3.4-5.0) 12/06/18 21:36 ecg: sr nl intervals no ischemic changes cxr: clear lungs echo 11/2018: nl lv/rv, mild lvh, mild mr, mild tr, nl rvsp tele: sr, occ pvcs a/p: 68 m hx ex drug abuse on methadone, htn, dm, cva, hld, smoking, cad s/p pci earlier this month after cp with +mibi, here with cp. cp, cad/pci: -recent cp with +mibi and cath this month. Pt reports having once stent placed. -currently no signs acs. cp resolved. ecg benign, trop negx1. Cont tele, trend ce's. -cont dapt, statin -recent echo unremarkable -[facility] to see if any residual dz that may be causing sxs. htn: -cont current meds hld: -cont statin
--- NOTE | 2018-12-07 10:32 | EKG ---
Test Reason : Blood Pressure : / mmHG Vent. Rate : 088 BPM Atrial Rate : 088 BPM P-R Int : 174 ms QRS Dur : 112 ms QT Int : 388 ms P-R-T Axes : 037 108 050 degrees QTc Int : 469 ms NORMAL SINUS RHYTHM RIGHTWARD AXIS CANNOT RULE OUT INFERIOR INFARCT , AGE UNDETERMINED ABNORMAL ECG WHEN COMPARED WITH ECG OF 25-NOV-2018 20:08, PREMATURE VENTRICULAR COMPLEXES ARE NO LONGER PRESENT Confirmed by MD ATWNY, NANDINI ([id number]) on 12/07/2018 10:31:58 AM Referred By: Confirmed By:NANDINI HECTOR MD
[2018-12-07] MEDS ORDERED: ACETAMINOPHEN 325 MG TABLET (FP) PO ONE (11:45)
[2018-12-07] MEDS: CLOPIDOGREL BISULFATE 75 MG TABLET (FP) PO SCH (11:56)
[2018-12-07] MEDS: INSULIN SLIDING SCALE (NOVOLOG) 1 VIAL SQ SCH ×3 (11:57→21:00)
--- NOTE | 2018-12-07 16:02 | HP ---
Admitting History and Physical - Admission History of Present Illness: Pt is a 68 y/o male w/ PMH significant for DM, HTN, CAD(s/p stent), substance abuse (on methadone), hep C, HLD and CVA. Pt prsented to the ER with chest tightness/pressure at 6:30p today. Pt was lying down when it happened. The chest pressure developed suddenly and it resolved at 8pm on the way to the hospital. Today's symptoms were similar to last [place]. On 11/27/18 pt was seen for chest pain, transferred from [facility] to [facility] for angiogram and stent w positive stress MIBI showing moderate area of mildly intense inferior, small area of mildly intense inferolateral ischemia. - Past Medical History [employer]: Yes: CVA Cardiovascular: Yes: CAD, CHF, HTN, Hyperlipdemia, Other (ventricular bigeminy) Gastrointestinal: Yes: GI Bleed, Peptic Ulcer Disease Hepatobiliary: Yes: Hepatitis C Heme/Onc: Yes: Anemia Psych: Yes: Depression, Other (alcoholism) Endocrine: Yes: Diabetes Mellitus - Smoking History Smoking history: Unknown if ever smoked Have you smoked in the past 12 months: No Aproximately how many cigarettes per day: 4 If you are a former smoker, when did you quit?: 11/30/2018 - Alcohol/Substance Use Hx Alcohol Use: No - Social History ADL: Independent 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 History of Recent Travel: No Home Medications - Allergies Allergies/Adverse Reactions: Allergies Allergy/AdvReac Type Severity Reaction Status Date / Time No Known Allergies Allergy Verified 12/06/18 20:02 - Home Medications Home Medications: Ambulatory Orders Atorvastatin Ca [Lipitor] 20 mg PO HS 05/28/14 Aspirin [ASA -] 325 mg PO DAILY 05/26/18 Hydrochlorothiazide [Hctz -] 25 mg PO DAILY 05/27/18 Tamsulosin HCl [Flomax -] 0.4 mg PO DAILY 05/27/18 Empagliflozin [Jardiance] 25 mg PO DAILY 11/19/18 Ferrous Sulfate 1 gm PO DAILY 11/25/18 Linaclotide [Linzess] 72 mcg PO DAILY 11/25/18 Sitagliptin Phos/Metformin HCl [Janumet 50-1,000 mg Tablet] 1 tab PO DAILY 11/25 Methadone 100 mg PO DAILY 12/07/18 Family Medical History Family History: Unremarkable Review of Systems - Review of Systems Constitutional: reports: No Symptoms Eyes: reports: No Symptoms HENT: reports: No Symptoms Neck: reports: No Symptoms Respiratory: reports: No Symptoms Gastrointestinal: reports: No Symptoms Genitourinary: reports: No Symptoms Physical Examination Vital Signs: Vital Signs Temperature 98.6 F 12/07/18 14:33 Pulse Rate 64 12/07/18 14:33 Respiratory Rate 20 12/07/18 14:33 Blood Pressure 117/53 L 12/07/18 14:33 O2 Sat by Pulse Oximetry (%) 97 12/07/18 09:00 Constitutional: Yes: Well Nourished HENT: Yes: WNL Neck: Yes: WNL, Supple Cardiovascular: Yes: WNL, Regular Rate and Rhythm Respiratory: Yes: WNL, Regular, CTA Bilaterally Gastrointestinal: Yes: WNL, Normal Bowel Sounds, Soft Musculoskeletal: Yes: WNL Extremities: Yes: WNL Edema: No Neurological: Yes: WNL, Alert, Oriented ...Motor Strength: WNL Labs: CBC, BMP 12/06/18 21:36 12/07/18 09:30 Problem List - Problems (1) Chest pain Assessment/Plan: Pt w/ h/o CAD S/P cardiac stent placement about 10 days ago Serial cpk/troponin Check echo Cardio consult Code(s): R07.9 - CHEST PAIN, UNSPECIFIED Qualifiers: Chest pain type: unspecified Qualified Code(s): R07.9 - Chest pain, unspecified (2) Anemia Assessment/Plan: H/H stable Cont FEso4 Code(s): D64.9 - ANEMIA, UNSPECIFIED (3) Hyperlipidemia Assessment/Plan: Cont lipitor Code(s): E78.5 - HYPERLIPIDEMIA, UNSPECIFIED (4) DM Diabetes mellitus type 2 Assessment/Plan: Cont sliding scale w/ coverage Cont metformin/januvia Code(s): E11.9 - TYPE 2 DIABETES MELLITUS WITHOUT COMPLICATIONS (5) Essential hypertension Assessment/Plan: BP stable Code(s): I10 - ESSENTIAL (PRIMARY) HYPERTENSION (6) Methadone maintenance therapy patient Assessment/Plan: Cont methadone Code(s): F11.20 - OPIOID DEPENDENCE, UNCOMPLICATED (7) CVA (cerebral vascular accident) Code(s): I63.9 - CEREBRAL INFARCTION, UNSPECIFIED (8) CAD (coronary artery disease) Assessment/Plan: S/P cardiac stent about 2 weeks ago Cont plavix Code(s): I25.10 - ATHSCL HEART DISEASE OF [place] CORONARY ARTERY W/O ANG PCTRS
[2018-12-07] MEDS: metFORMIN HCL 500 MG TABLET (FP) PO SCH (17:19)
[2018-12-07 17:44] LABS: EOS % 3.9 % (0-4.5); HEMATOCRIT 40.1 % (35.4-49); HEMOGLOBIN 13.3 GM/dL (11.7-16.9); LYMPH % 42.9 % (8-40); MCH 30.6 pg (25.7-33.7); MCHC 33.1 g/dl (32.0-35.9); MEAN CELL VOLUME 92.2 fl (80-96); MEAN PLT VOLUME 7.6 fl (7.5-11.1); MONO % 11.3 % (3.8-10.2); NEUT % 40.9 % (42.8-82.8); PLATELET COUNT 327 K/MM3 (134-434); RBC 4.35 M/mm3 (4.00-5.60); RDW 19.5 % (11.9-15.9); WHITE BLOOD COUNT 6.7 K/mm3 (4.0-10.0)
[2018-12-07] MEDS: ATORVASTATIN CA 20 MG TABLET (FP) PO SCH (21:00)
[2018-12-07] MEDS: FERROUS SO4 325 MG TABLET (FP) PO SCH (21:00)
[2018-12-07] MEDS: QUEtiapine FUMARATE 300 MG TABLET PO SCH (21:00)
[2018-12-08] MEDS ORDERED: METHADONE HCL 40 MG DISPERSABLE TABLET ONE (05:54)
[2018-12-08] MEDS ORDERED: METHADONE HCL 10 MG TABLET ONE (05:55)
[2018-12-08] MEDS: METHADONE 80 MG, METHADONE 20 MG PO SCH (05:56)
[2018-12-08] MEDS: INSULIN SLIDING SCALE (NOVOLOG) 1 VIAL SQ SCH ×4 (06:00→21:27)
[2018-12-08 06:32] LABS: HEMATOCRIT 35.9 % (35.4-49); HEMOGLOBIN 12.1 GM/dL (11.7-16.9); LYMPH % 37.1 % (8-40); MCH 30.9 pg (25.7-33.7); MCHC 33.6 g/dl (32.0-35.9); MEAN CELL VOLUME 91.9 fl (80-96); MEAN PLT VOLUME 7.5 fl (7.5-11.1); MONO % 10.3 % (3.8-10.2); NEUT % 46.6 % (42.8-82.8); PLATELET COUNT 294 K/MM3 (134-434); RDW 19.6 % (11.9-15.9)
[2018-12-08 07:11] LABS: ALBUMIN 3.6 g/dl (3.4-5.0); ALK PHOS 61 U/L (45-117); ANION GAP 8 MMOL/L (8-16); BILIRUBIN,TOTAL 0.3 mg/dL (0.2-1); BLOOD UREA NITROGEN 24.1 mg/dL (7-18); CALCIUM 8.6 mg/dL (8.5-10.1); CHLORIDE 100 mmol/L (98-107); CO2 28 mmol/L (21-32); CREATININE 1.4 mg/dL (0.55-1.3); GLUCOSE,RANDOM 79 mg/dL (74-106); POTASSIUM 4.4 mmol/L (3.5-5.1); SGOT/AST 21 U/L (15-37); SGPT/ALT 19 U/L (13-61); SODIUM 136 mmol/L (136-145); TOT PROT 7.4 g/dl (6.4-8.2)
[2018-12-08] MEDS: ASPIRIN 325 MG TABLET PO SCH (11:00)
[2018-12-08] MEDS: CLOPIDOGREL BISULFATE 75 MG TABLET (FP) PO SCH (11:00)
[2018-12-08] MEDS: FERROUS SO4 325 MG TABLET (FP) PO SCH ×2 (11:00→21:27)
[2018-12-08] MEDS: HYDROCHLOROTHIAZIDE 25 MG TABLET (FP) PO SCH (11:00)
[2018-12-08] MEDS: metFORMIN HCL 500 MG TABLET (FP) PO SCH ×2 (11:00→16:55)
[2018-12-08] MEDS: HEPARIN NA (PORCINE) 5,000 UNITS/ML 1ML VIAL SQ SCH ×2 (11:01→21:27)
[2018-12-08] MEDS: TAMSULOSIN HCL 0.4 MG CAP PO SCH (11:01)
--- NOTE | 2018-12-08 11:04 | PN ---
Progress Note, Physician Chief Complaint: Sitting in chair, no further CP TELE: NSR, PVCs, rarely in pattern of bigeminy - Current Medication List Current Medications: Active Medications Aspirin (Asa -) 325 mg PO DAILY [facility] Last Admin: 12/07/18 09:51 Dose: 325 mg Atorvastatin Calcium (Lipitor -) 20 mg PO [facility] Last Admin: 12/07/18 21:00 Dose: 20 mg Clopidogrel Bisulfate (Plavix -) 75 mg PO DAILY [facility] Last Admin: 12/07/18 11:56 Dose: 75 mg Ferrous Sulfate (Feosol -) 325 mg PO BID [facility] Last Admin: 12/07/18 21:00 Dose: 325 mg Heparin Sodium (Porcine) (Heparin -) 5,000 unit SQ BID [facility] Last Admin: 12/07/18 21:00 Dose: 5,000 unit Hydrochlorothiazide (Hctz -) 25 mg PO DAILY [facility] Last Admin: 12/07/18 09:51 Dose: 25 mg Insulin Aspart (Novolog Vial Sliding Scale -) 1 vial SQ [facility]; Protocol Last Admin: 12/08/18 06:00 Dose: Not Given Metformin HCl (Glucophage -) 1,000 mg PO BID@0700,1630 [facility] Last Admin: 12/07/18 17:19 Dose: 1,000 mg Methadone HCl 80 mg/ Methadone (HCl 20 mg) 100 mg PO DAILY@0600 [facility] Last Admin: 12/08/18 05:56 Dose: 100 mg Quetiapine Fumarate (Seroquel -) 300 mg PO [facility] Last Admin: 12/07/18 21:00 Dose: 300 mg Sitagliptin Phosphate (Januvia -) 100 mg PO DAILY@0700 [facility] Tamsulosin HCl (Flomax -) 0.4 mg PO DAILY@0830 [facility] Last Admin: 12/07/18 10:15 Dose: 0.4 mg - Objective Vital Signs: Vital Signs Temperature 98.6 F 12/08/18 05:37 Pulse Rate 64 12/08/18 05:37 Respiratory Rate 20 12/08/18 05:37 Blood Pressure 121/49 L 12/08/18 05:37 O2 Sat by Pulse Oximetry (%) 97 12/07/18 21:00 Constitutional: Yes: No Distress, Calm Eyes: Yes: Conjunctiva Clear Cardiovascular: Yes: Regular Rate and Rhythm Respiratory: Yes: CTA Bilaterally Gastrointestinal: Yes: Soft Edema: No Neurological: Yes: Alert, Oriented Labs: CBC, BMP 12/08/18 05:40 12/08/18 05:40 Laboratory Tests 12/06/18 12/07/18 21:36 09:30 Troponin I < 0.02 < 0.02 - ....Imaging EKG: Image Reviewed Assessment/Plan ecg: sr nl intervals no ischemic changes cxr: clear lungs echo 11/2018: nl lv/rv, mild lvh, mild mr, mild tr, nl rvsp tele: sr, occ pvcs a/p: 68 m hx ex drug abuse on methadone, htn, dm, cva, hld, smoking, cad s/p pci earlier this month after cp with +mibi, here with cp. cp, cad/pci: -recent cp with +mibi and cath this month. Pt reports having once stent placed. -currently no signs acs. cp resolved. ecg benign, trop negx1. Cont tele, trend ce's. -cont dapt, statin -recent echo unremarkable -obtain cath report from [facility] to see if any residual dz that may be causing sxs; f/u repeat echo htn: -cont current meds hld: -cont statin
--- NOTE | 2018-12-08 13:59 | ECHO ---
Name: FABY DIAZ Exam:Adult Echocardiogram Study Date: 12/08/2018 09:21 AM Age: 68 yrs Reason For Study: Chest pain Height: 69 in Weight: 239 lb BSA: 2.2 m2 MMode/2D Measurements & Calculations IVSd: 1.2 cm Ao root diam: 3.0 cm LVIDd: 4.8 cm LA dimension: 3.6 cm LVIDs: 2.9 cm LVPWd: 1.0 cm EDV(Teich): 107.5 ml LVOT diam: 2.2 cm ESV(Teich): 33.4 ml Doppler Measurements & Calculations MV E max vitaliy: 61.2 cm/sec Ao V2 max: 145.9 cm/sec MV A max vitaliy: 91.8 cm/sec Ao max P.5 mmHg MV E/A: 0.67 MV dec time: 0.29 sec CRYS(V,D): 2.1 cm2 LV V1 max P.6 mmHg TR max vitaliy: 180.3 cm/sec LV V1 max: 81.4 cm/sec TR max P.1 mmHg Med Peak E' Vitaliy: 9.7 cm/sec Med E/e': 6.3 Lat Peak E' Vitaliy: 10.3 cm/sec Lat E/e': 5.9 Procedure A complete two-dimensional transthoracic echocardiogram was performed (2D, M-mode, Doppler and color flow Doppler). Left Ventricle The left ventricle is normal in size. Left ventricular systolic function is normal. Ejection Fraction = 60- 65%. No regional wall motion abnormalities noted. Right Ventricle The right ventricle is normal size. The right ventricular systolic function is normal. RV systolic TD I is 18 cm/s. Atria The left atrial size is normal. Right atrial size is normal. Mitral Valve The mitral valve is normal in structure and function. There is trace to mild mitral regurgitation. Tricuspid Valve The tricuspid valve is normal in structure and function. No tricuspid regurgitation. Aortic Valve The aortic valve is normal in structure and function. No aortic regurgitation is present. Pulmonic Valve The pulmonic valve is not well visualized. Great Vessels The aortic root is normal size. Pericardium/Pleura There is no pericardial effusion. Interpretation Summary The left ventricle is normal in size. Left ventricular systolic function is normal. No regional wall motion abnormalities noted. Ejection Fraction = 60-65%. The right ventricular systolic function is normal. The left atrial size is normal. Right atrial size is normal. There is trace to mild mitral regurgitation. There is no pericardial effusion. When compared to study dated 11/20/18, likely no significant changes Mark Stringer MD 12/08/2018 01:58 PM
[2018-12-08] MEDS ORDERED: QUEtiapine FUMARATE 100 MG TABLET (FP) ONE (20:16)
[2018-12-08] MEDS ORDERED: ACETAMINOPHEN 325 MG TABLET (FP) ONE (20:19)
[2018-12-08] MEDS: QUEtiapine FUMARATE 300 MG TABLET PO SCH (21:27)
[2018-12-08] MEDS: ATORVASTATIN CA 20 MG TABLET (FP) PO SCH (21:27)
[2018-12-08] MEDS ORDERED: ACETAMINOPHEN 325 MG TABLET (FP) PO PRN (21:34)
--- NOTE | 2018-12-08 22:02 | PN ---
Progress Note, Physician History of Present Illness: No further chest pain - Current Medication List Current Medications: Active Medications Acetaminophen (Tylenol -) 650 mg PO Q6H PRN PRN Reason: PAIN 1-5 Aspirin (Asa -) 325 mg PO DAILY [facility] Last Admin: 12/08/18 11:00 Dose: 325 mg Atorvastatin Calcium (Lipitor -) 20 mg PO HS [facility] Last Admin: 12/08/18 21:27 Dose: 20 mg Clopidogrel Bisulfate (Plavix -) 75 mg PO DAILY [facility] Last Admin: 12/08/18 11:00 Dose: 75 mg Ferrous Sulfate (Feosol -) 325 mg PO BID [facility] Last Admin: 12/08/18 21:27 Dose: 325 mg Heparin Sodium (Porcine) (Heparin -) 5,000 unit SQ BID [facility] Last Admin: 12/08/18 21:27 Dose: 5,000 unit Hydrochlorothiazide (Hctz -) 25 mg PO DAILY [facility] Last Admin: 12/08/18 11:00 Dose: 25 mg Insulin Aspart (Novolog Vial Sliding Scale -) 1 vial SQ [facility]; Protocol Last Admin: 12/08/18 21:27 Dose: Not Given Metformin HCl (Glucophage -) 1,000 mg PO BID@0700,1630 [facility] Last Admin: 12/08/18 16:55 Dose: 1,000 mg Methadone HCl 80 mg/ Methadone (HCl 20 mg) 100 mg PO DAILY@0600 [facility] Last Admin: 12/08/18 05:56 Dose: 100 mg Quetiapine Fumarate (Seroquel -) 300 mg PO [facility] Last Admin: 12/08/18 21:27 Dose: 300 mg Sitagliptin Phosphate (Januvia -) 100 mg PO DAILY@0700 [facility] Last Admin: 12/08/18 11:00 Dose: 100 mg Tamsulosin HCl (Flomax -) 0.4 mg PO DAILY@0830 [facility] Last Admin: 12/08/18 11:01 Dose: 0.4 mg - Objective Vital Signs: Vital Signs Temperature 98.1 F 12/08/18 18:00 Pulse Rate 71 12/08/18 18:00 Respiratory Rate 18 12/08/18 18:00 Blood Pressure 126/46 L 12/08/18 18:00 O2 Sat by Pulse Oximetry (%) 97 12/08/18 09:00 Neck: Yes: WNL, Supple Cardiovascular: Yes: WNL, Regular Rate and Rhythm Respiratory: Yes: WNL, Regular, CTA Bilaterally Gastrointestinal: Yes: WNL, Normal Bowel Sounds, Soft Labs: CBC, BMP 12/08/18 05:40 12/08/18 05:40 Problem List - Problems (1) Chest pain Assessment/Plan: Pt w/ h/o CAD S/P cardiac stent placement Cont to trend dpk/troponin wc have been negative tod ate Echo unremarkable As per cardio to get copy of cath report Code(s): R07.9 - CHEST PAIN, UNSPECIFIED Qualifiers: Chest pain type: unspecified Qualified Code(s): R07.9 - Chest pain, unspecified (2) Anemia Assessment/Plan: H/H stable Cont FEso4 Code(s): D64.9 - ANEMIA, UNSPECIFIED (3) Hyperlipidemia Assessment/Plan: Cont lipitor Code(s): E78.5 - HYPERLIPIDEMIA, UNSPECIFIED (4) DM Diabetes mellitus type 2 Assessment/Plan: Cont sliding scale w/ coverage Cont metformin/januvia Code(s): E11.9 - TYPE 2 DIABETES MELLITUS WITHOUT COMPLICATIONS (5) Essential hypertension Assessment/Plan: BP stable Code(s): I10 - ESSENTIAL (PRIMARY) HYPERTENSION (6) Methadone maintenance therapy patient Assessment/Plan: Cont methadone Code(s): F11.20 - OPIOID DEPENDENCE, UNCOMPLICATED (7) CVA (cerebral vascular accident) Code(s): I63.9 - CEREBRAL INFARCTION, UNSPECIFIED (8) CAD (coronary artery disease) Assessment/Plan: S/P cardiac stent about 2 weeks ago Cont plavix Code(s): I25.10 - ATHSCL HEART DISEASE OF [place] CORONARY ARTERY W/O ANG PCTRS
[2018-12-09] MEDS ORDERED: METHADONE HCL 40 MG DISPERSABLE TABLET ONE (06:36)
[2018-12-09] MEDS ORDERED: METHADONE HCL 10 MG TABLET ONE (06:36)
[2018-12-09] MEDS: metFORMIN HCL 500 MG TABLET (FP) PO SCH ×2 (06:46→16:39)
[2018-12-09] MEDS: METHADONE 80 MG, METHADONE 20 MG PO SCH (06:46)
[2018-12-09] MEDS: INSULIN SLIDING SCALE (NOVOLOG) 1 VIAL SQ SCH ×3 (06:46→16:40)
[2018-12-09] MEDS: TAMSULOSIN HCL 0.4 MG CAP PO SCH (08:40)
--- NOTE | 2018-12-09 08:59 | PN ---
Progress Note, Physician Chief Complaint: Pt A&Ox3; OOB in cyndi; no further chest discomfort or anxiety. History of Present Illness: Mr. Laureano is a 68-year-old black man with PM history of hypertension, hyperlipidemia, prior CVA, [id number]-[id number] diabetes, anxiety, s/p substance abuse,CAD (no hx NV) who is 1 week status post cardiac stent of proximal and mid LCx (after +stress MIBI at [facility]-->trnsfer to [facility] for the procedure). by Dr. Foreign Cleary. Patient presents to the emergency department with midsternal chest pressure, no associated radiation to the arm jaw or back He would describe his pain as 9/10 This is very similar to his last episode of brought him to the hospital except this time it lasted a shorter period of time open with this (45 minutes) and this time it was not associated with diaphoresis Symptoms began at approximately 6 PM after he returned from shopping at [employer] and was seated in his couch He denies any recent nausea, vomit, diarrhea or constipation. Allergies: NKDA Primary Care Physician: Dr. Kathrin Zabala - Current Medication List Current Medications: Active Medications Acetaminophen (Tylenol -) 650 mg PO Q6H PRN PRN Reason: PAIN 1-5 Aspirin (Asa -) 325 mg PO DAILY [facility] Last Admin: 12/08/18 11:00 Dose: 325 mg Atorvastatin Calcium (Lipitor -) 20 mg PO HS [facility] Last Admin: 12/08/18 21:27 Dose: 20 mg Clopidogrel Bisulfate (Plavix -) 75 mg PO DAILY [facility] Last Admin: 12/08/18 11:00 Dose: 75 mg Ferrous Sulfate (Feosol -) 325 mg PO BID [facility] Last Admin: 12/08/18 21:27 Dose: 325 mg Heparin Sodium (Porcine) (Heparin -) 5,000 unit SQ BID [facility] Last Admin: 12/08/18 21:27 Dose: 5,000 unit Hydrochlorothiazide (Hctz -) 25 mg PO DAILY [facility] Last Admin: 12/08/18 11:00 Dose: 25 mg Insulin Aspart (Novolog Vial Sliding Scale -) 1 vial SQ [facility]; Protocol Last Admin: 12/09/18 06:46 Dose: Not Given Metformin HCl (Glucophage -) 1,000 mg PO BID@0700,1630 [facility] Last Admin: 12/09/18 06:46 Dose: 1,000 mg Methadone HCl 80 mg/ Methadone (HCl 20 mg) 100 mg PO DAILY@0600 [facility] Last Admin: 12/09/18 06:46 Dose: 100 mg Quetiapine Fumarate (Seroquel -) 300 mg PO HS [facility] Last Admin: 12/08/18 21:27 Dose: 300 mg Sitagliptin Phosphate (Januvia -) 100 mg PO DAILY@0700 [facility] Last Admin: 12/09/18 06:46 Dose: 100 mg Tamsulosin HCl (Flomax -) 0.4 mg PO DAILY@0830 [facility] Last Admin: 12/08/18 11:01 Dose: 0.4 mg - Objective Vital Signs: Vital Signs Temperature 97.9 F 12/09/18 06:00 Pulse Rate 60 12/09/18 06:00 Respiratory Rate 20 12/09/18 06:00 Blood Pressure 129/69 12/09/18 06:00 O2 Sat by Pulse Oximetry (%) 97 12/08/18 21:00 Constitutional: Yes: Anxious Eyes: Yes: WNL HENT: Yes: WNL Neck: Yes: WNL Cardiovascular: Yes: WNL Respiratory: Yes: WNL Gastrointestinal: Yes: WNL ...Rectal Exam: Yes: Deferred Genitourinary: No: Anuria Musculoskeletal: Yes: WNL Extremities: Yes: WNL Edema: No Peripheral Pulses WNL: Yes Integumentary: Yes: WNL Wound/Incision: Yes: Other (healed cath site) Neurological: Yes: WNL ...Motor Strength: WNL Psychiatric: Yes: WNL Labs: CBC, BMP 12/08/18 05:40 12/08/18 05:40 Abnormal Lab Results 12/08/18 05:40 BUN 24.1 H Creatinine 1.4 H - ....Imaging Chest X-ray: Image Reviewed (no acute changes) EKG: Image Reviewed (NSR; RAD) Other: Image Reviewed (telemetry: NSR; occasional PVCs) Problem List - Problems (1) H/O heart artery stent Assessment/Plan: TNI < 0.0 x 2 EKG: no acute changes Plan: ASA 1 mg daily and clopidogrel 75 mg daily. Add Imdur 30 mg daily. As discussed with Dr. Cleary (interventionalist who did LCx stent 2018), pt will undergo revascularization of the LAD on January 01, 2019, at [facility]. From a cardiac perspective, he may be followed as an outpatient. Code(s): Z95.5 - PRESENCE OF CORONARY ANGIOPLASTY IMPLANT AND GRAFT (2) Cerebral infarct Assessment/Plan: chronic bilateral cerebellar infarcts Aggressive lipid control (on atorvastatin; lipid panel noted). F/u caroitd artery stenosis; CTA was recommended in 2018. Code(s): I63.9 - CEREBRAL INFARCTION, UNSPECIFIED (3) Diastolic CHF Code(s): I50.30 - UNSPECIFIED DIASTOLIC (CONGESTIVE) HEART FAILURE (4) Palpitations Code(s): R00.2 - PALPITATIONS (5) Essential hypertension Code(s): I10 - ESSENTIAL (PRIMARY) HYPERTENSION (6) Hypercholesterolemia Assessment/Plan: on statin; aggressive control of lipids (vasculpathy). Code(s): E78.0 - PURE HYPERCHOLESTEROLEMIA * DO NOT USE * (7) Diabetes Assessment/Plan: Consider addition of SGLP2 inhibitor (DM; CAD), e.g. Jardience. Ad lisinopril (DM; CAD; HTN); maintain hydration, and f/u BUN/Cr and electrolytes. Will discontinue HCTZ. Code(s): E11.9 - TYPE 2 DIABETES MELLITUS WITHOUT COMPLICATIONS (8) Carotid artery stenosis Assessment/Plan: 10/2017 US: 50-70% proximal ADI stenosis; CTA was recommended; it is unclear if this was done while pt was an outpt. Code(s): I65.29 - OCCLUSION AND STENOSIS OF UNSPECIFIED CAROTID ARTERY (9) Anxiety and depression Assessment/Plan: On Seroquel. Pt says he would like long-term f/u as outpatient of his psychological disorder. Code(s): F41.9 - ANXIETY DISORDER, UNSPECIFIED; F32.9 - MAJOR DEPRESSIVE DISORDER, SINGLE EPISODE, UNSPECIFIED (10) Substance abuse Assessment/Plan: Pt says he stopped alcholol completely years ago. Stopped heroin and other opiates years ago; on methadone 100 mg daily. Stopped cigarettes after stent 2 weeks ago; does not think he needs nicotine patch or other help. 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 Code(s): E66.9 - OBESITY, UNSPECIFIED
[2018-12-09] MEDS: FERROUS SO4 325 MG TABLET (FP) PO SCH (09:36)
[2018-12-09] MEDS: HEPARIN NA (PORCINE) 5,000 UNITS/ML 1ML VIAL SQ SCH (09:37)
[2018-12-09] MEDS: CLOPIDOGREL BISULFATE 75 MG TABLET (FP) PO SCH (09:37)
[2018-12-09] MEDS ORDERED: ASPIRIN 81 MG CHEWABLE TABLETS PO SCH (10:00)
[2018-12-09] MEDS ORDERED: LISINOPRIL 5 MG TABLET (FP) PO SCH (10:00)
[2018-12-09] MEDS ORDERED: ISOSORBIDE MONONITRATE 30 MG TAB.SR.24H (FP) PO SCH (10:00)
--- NOTE | 2018-12-09 12:07 | EKG ---
Test Reason : Blood Pressure : / mmHG Vent. Rate : 070 BPM Atrial Rate : 070 BPM P-R Int : 188 ms QRS Dur : 102 ms QT Int : 408 ms P-R-T Axes : 052 099 091 degrees QTc Int : 440 ms SINUS RHYTHM WITH FREQUENT PREMATURE VENTRICULAR COMPLEXES RIGHTWARD AXIS BORDERLINE ECG WHEN COMPARED WITH ECG OF 06-DEC-2018 20:43, PREMATURE VENTRICULAR COMPLEXES ARE NOW PRESENT MINIMAL CRITERIA FOR INFERIOR INFARCT ARE NO LONGER PRESENT Confirmed by Mikhail Miguel MD ([id number]) on 12/09/2018 12:07:47 PM Referred By: SHAE GO DR Confirmed By:Mikhail Miguel MD
[2018-12-09 15:26] VITALS: BP 104/64; PULSE 74; TEMP 98.3
== END 2018-12-09 19:04 | disposition home or self-care (01) | DRG 313 ==
LOC: JER 19:53 → J4S 22:45 → OBSVTOIN 12-07 09:00
PROVIDERS: ADMIT Family Medicine Geriatric Medicine; ATTEND Family Medicine Geriatric Medicine
DX: R07.89 Other chest pain (principal); F11.20 Opioid dependence, uncomplicated; I50.32 Chronic diastolic (congestive) heart failure; I11.0 Hypertensive heart disease with heart failure; I10 Essential (primary) hypertension; E11.9 Type 2 diabetes mellitus without complications; F41.8 Other specified anxiety disorders; I25.10 Atherosclerotic heart disease of native coronary artery without angina pectoris; E78.5 Hyperlipidemia, unspecified; R00.2 Palpitations; D64.9 Anemia, unspecified; E66.8 Other obesity; F19.10 Other psychoactive substance abuse, uncomplicated; B18.2 Chronic viral hepatitis C; Z87.11 Personal history of peptic ulcer disease; Z86.73 Personal history of transient ischemic attack (TIA), and cerebral infarction without residual deficits; Z95.5 Presence of coronary angioplasty implant and graft; Z68.35 Body mass index [BMI] 35.0-35.9, adult
CPT/HCPCS: 36415; 70498-TC; 71045-TC-FY; 80048; 80053; 82550; 82553; 82962; 84484; 85025; 93005; 93010; 93306-TC; 99284-25; G0378; J1644

== ENCOUNTER 2020-05-21 21:03 | Inpatient (IN) | payer OTHER ==
[2020-05-21] MEDS ORDERED: ASPIRIN 81 MG CHEWABLE TABLETS PO ONE (21:56)
[2020-05-21 22:35] LABS: CHLORIDE 98 mmol/L (98-107); POTASSIUM 3.4 mmol/L (3.5-5.1); SODIUM 135 mmol/L (136-145)
[2020-05-21 22:37] LABS: ANION GAP 6 MMOL/L (8-16); BLOOD UREA NITROGEN 11.1 mg/dL (7-18); CALCIUM 9.8 mg/dL (8.5-10.1); CO2 31 mmol/L (21-32)
[2020-05-21 22:38] LABS: ALBUMIN 3.4 g/dl (3.4-5.0); GLUCOSE,RANDOM 114 mg/dL (74-106)
[2020-05-21 22:40] LABS: SGPT/ALT 23 U/L (13-61)
[2020-05-21 22:41] LABS: CREATININE 1.4 mg/dL (0.55-1.3); SGOT/AST 27 U/L (15-37)
[2020-05-21 22:42] LABS: BILIRUBIN,TOTAL 0.3 mg/dL (0.2-1); TOT PROT 7.6 g/dl (6.4-8.2)
[2020-05-21 22:43] LABS: ALK PHOS 72 U/L (45-117)
[2020-05-21] MEDS ORDERED: MAG HYDROX/AL HYDROX/SIMETH 30 ML UNIT-DOSE CUP PO ONE (23:13)
[2020-05-21] MEDS ORDERED: MAG HYDROX/AL HYDROX/SIMETH 30 ML UNIT-DOSE CUP ONE (23:37)
[2020-05-22] MEDS ORDERED: SODIUM CHLORIDE 0.9% 500 ML INFUS.BAG IV ONE (00:35)
[2020-05-22 00:56] LABS: EOS % 2.8 % (0-4.5); HEMATOCRIT 27.7 % (35.4-49); LYMPH % 26.7 % (8-40); MCH 27.9 pg (25.7-33.7); MCHC 32.7 g/dl (32.0-35.9); MEAN CELL VOLUME 85.4 fl (80-96); MONO % 12.2 % (3.8-10.2); NEUT % 57.3 % (42.8-82.8); RBC 3.24 M/mm3 (4.00-5.60); RDW 19.7 % (11.9-15.9); WHITE BLOOD COUNT 4.5 K/mm3 (4.0-10.0)
[2020-05-22] MEDS ORDERED: POTASSIUM CHLORIDE ORAL LIQUID 20 MEQ/15 ML PO ONE (01:28)
[2020-05-22] MEDS ORDERED: POTASSIUM CHLORIDE ORAL LIQUID 20 MEQ/15 ML ONE (02:05)
[2020-05-22 02:20] LABS: INR 1.03 (0.83-1.09); PROTHROMBIN TIME (PATIENT) 12.5 SEC (9.7-13.0)
[2020-05-22 02:23] LABS: ACTIVATED PTT 27.8 SECONDS (25.2-36.5)
[2020-05-22 03:10] LABS: MEAN PLT VOLUME 7.8 fl (7.5-11.1); PLATELET COUNT 254 K/MM3 (134-434)
[2020-05-22 03:57] VITALS: BP 144/79; PULSE 73; TEMP 98; BMI 38.7
[2020-05-22] MEDS ORDERED: METHADONE HCL 10 MG TABLET PO SCH (07:45)
[2020-05-22] MEDS ORDERED: TAMSULOSIN HCL 0.4 MG CAP PO SCH (08:30)
[2020-05-22] MEDS ORDERED: ASPIRIN COATED 81 MG TABLET.EC PO SCH (10:00)
[2020-05-22] MEDS ORDERED: ISOSORBIDE MONONITRATE 30 MG TAB.SR.24H (FP) PO SCH (10:00)
[2020-05-22] MEDS ORDERED: ENOXAPARIN NA (PORCINE) 40 MG/0.4 ML DISP.SYRIN SQ SCH (10:00)
[2020-05-22] MEDS ORDERED: LISINOPRIL 5 MG TABLET PO SCH (10:00)
[2020-05-22] MEDS ORDERED: FERROUS SO4 325 MG TABLET (FP) PO SCH (10:00)
[2020-05-22] MEDS ORDERED: CLOPIDOGREL BISULFATE 75 MG TABLET (FP) PO SCH (10:00)
[2020-05-22] MEDS ORDERED: DOCUSATE SODIUM 100 MG CAPSULE (FP) PO SCH (14:00)
[2020-05-22] MEDS ORDERED: ATORVASTATIN CA 20 MG TABLET (FP) PO SCH (22:00)
[2020-05-22] MEDS ORDERED: QUEtiapine FUMARATE 300 MG TABLET PO SCH (22:00)
== END 2020-05-22 08:00 | disposition left against medical advice (07) | DRG 313 ==
LOC: SUPCPDRO 21:03 → JER 21:03 → JERBED 21:31 → J4S 05-22 03:30
PROVIDERS: ADMIT Internal Medicine; ATTEND Internal Medicine
DX: R07.9 Chest pain, unspecified (principal); E11.9 Type 2 diabetes mellitus without complications; I25.10 Atherosclerotic heart disease of native coronary artery without angina pectoris; B19.20 Unspecified viral hepatitis C without hepatic coma; E78.5 Hyperlipidemia, unspecified; Z86.73 Personal history of transient ischemic attack (TIA), and cerebral infarction without residual deficits; F11.10 Opioid abuse, uncomplicated; Z79.84 Long term (current) use of oral hypoglycemic drugs
CPT/HCPCS: 36415; 71045-TC-FY; 80053; 84484; 85025; 85610; 85730; 93005; 93010; 99285-25; C9803; U0003; U0005

== ENCOUNTER 2020-12-23 15:41 | Inpatient (IN) | payer OTHER ==
[2020-12-23 18:01] LABS: EOS % 0.9 % (0-4.5); HEMATOCRIT 16.1 % (35.4-49); LYMPH % 19.7 % (8-40); MCH 20.7 pg (25.7-33.7); MEAN CELL VOLUME 66.6 fl (80-96); MONO % 7.7 % (3.8-10.2); NEUT % 70.7 % (42.8-82.8); PLATELET COUNT 300 10^3/uL (134-434); RBC 2.41 M/mm3 (4.00-5.60)
[2020-12-23 18:05] LABS: INR 1.12 (0.83-1.09); PROTHROMBIN TIME (PATIENT) 13.1 SEC (9.7-13.0)
[2020-12-23 18:17] LABS: CHLORIDE 99 mmol/L (98-107); SODIUM 134 mmol/L (136-145)
[2020-12-23 18:20] LABS: ALBUMIN 3.6 g/dl (3.4-5.0); ANION GAP 8 MMOL/L (8-16); BLOOD UREA NITROGEN 25.4 mg/dL (7-18); CO2 28 mmol/L (21-32); GLUCOSE,RANDOM 80 mg/dL (74-106)
[2020-12-23 18:23] LABS: CREATININE 1.6 mg/dL (0.55-1.3); SGOT/AST 28 U/L (15-37); SGPT/ALT 21 U/L (13-61)
[2020-12-23 18:24] LABS: BILIRUBIN,TOTAL 0.4 mg/dL (0.2-1); TOT PROT 7.9 g/dl (6.4-8.2)
[2020-12-23 18:25] LABS: ALK PHOS 89 U/L (45-117)
[2020-12-23 19:35] LABS: ANISOCYTOSIS 2+; MACROCYTOSIS 0; OVALOCYTE 1+; PLATELET ESTIMATE NORMAL
[2020-12-23] MEDS ORDERED: QUEtiapine FUMARATE 100 MG TABLET (FP) ONE (22:34)
[2020-12-23] MEDS: QUEtiapine FUMARATE 300 MG TABLET PO SCH (22:37)
[2020-12-23] MEDS: ATORVASTATIN CA 20 MG TABLET (FP) PO SCH (22:37)
[2020-12-23] MEDS: DOCUSATE SODIUM 100 MG CAPSULE (FP) PO SCH (22:37)
[2020-12-24 00:13] VITALS: BMI 37.3
[2020-12-24] MEDS ORDERED: methaDONE HCL 10 MG TABLET PO SCH (06:00)
[2020-12-24] MEDS: DOCUSATE SODIUM 100 MG CAPSULE (FP) PO SCH ×3 (08:37→21:45)
[2020-12-24] MEDS: CLOPIDOGREL BISULFATE 75 MG TABLET (FP) PO SCH (09:49)
[2020-12-24] MEDS: LISINOPRIL 5 MG TABLET PO SCH (09:49)
[2020-12-24] MEDS: TAMSULOSIN HCL 0.4 MG CAP PO SCH (09:49)
[2020-12-24] MEDS: ISOSORBIDE MONONITRATE 30 MG TAB.SR.24H (FP) PO SCH (09:49)
[2020-12-24 10:01] LABS: BASO % 1.1 % (0-2.0); EOS % 3.5 % (0-4.5); HEMATOCRIT 22.2 % (35.4-49); HEMOGLOBIN 7.1 GM/dL (11.7-16.9); LYMPH % 27.5 % (8-40); MCH 22.8 pg (25.7-33.7); MEAN CELL VOLUME 71.4 fl (80-96); MONO % 10.5 % (3.8-10.2); NEUT % 57.4 % (42.8-82.8); PLATELET COUNT 271 10^3/uL (134-434); RBC 3.11 M/mm3 (4.00-5.60); RDW 22.5 % (11.9-15.9); WHITE BLOOD COUNT 5.2 K/mm3 (4.0-10.0)
[2020-12-24 10:24] LABS: CALCIUM 8.7 mg/dL (8.5-10.1)
[2020-12-24 10:25] LABS: ALBUMIN 3.4 g/dl (3.4-5.0)
[2020-12-24 10:28] LABS: CREATININE 1.6 mg/dL (0.55-1.3)
[2020-12-24 10:30] LABS: BILIRUBIN,TOTAL 0.5 mg/dL (0.2-1); TOT PROT 7.7 g/dl (6.4-8.2)
[2020-12-24] MEDS ORDERED: methaDONE 80 MG, methaDONE 20 MG PO ONE (10:30)
[2020-12-24] MEDS ORDERED: methaDONE HCL 40 MG DISPERSABLE TABLET ONE (10:42)
[2020-12-24] MEDS ORDERED: methaDONE HCL 10 MG TABLET ONE (10:42)
[2020-12-24 11:09] LABS: PLATELET ESTIMATE NORMAL
[2020-12-24] MEDS ORDERED: IRON SUCROSE INJECTION 200 MG in SODIUM CHLORIDE 90 ML IVPB ONE (15:00)
[2020-12-24 15:35] LABS: BASO % 1.4 % (0-2.0); EOS % 3.6 % (0-4.5); HEMATOCRIT 20.6 % (35.4-49); LYMPH % 23.4 % (8-40); MCH 22.8 pg (25.7-33.7); MCHC 32.1 g/dl (32.0-35.9); MEAN PLT VOLUME 6.6 fl (7.5-11.1); MONO % 11.4 % (3.8-10.2); NEUT % 60.2 % (42.8-82.8); PLATELET COUNT 266 10^3/uL (134-434); RBC 2.89 M/mm3 (4.00-5.60); RDW 22.4 % (11.9-15.9); WHITE BLOOD COUNT 4.2 K/mm3 (4.0-10.0)
[2020-12-24 15:39] LABS: HEMOGLOBIN 6.6 GM/dL (11.7-16.9)
[2020-12-24] MEDS ORDERED: QUEtiapine FUMARATE 100 MG TABLET (FP) ONE ×2 (21:41→21:46)
[2020-12-24] MEDS: ATORVASTATIN CA 20 MG TABLET (FP) PO SCH (21:45)
[2020-12-24] MEDS: QUEtiapine FUMARATE 300 MG TABLET PO SCH (21:46)
[2020-12-25] MEDS ORDERED: methaDONE HCL 40 MG DISPERSABLE TABLET ONE (05:10)
[2020-12-25] MEDS ORDERED: methaDONE HCL 10 MG TABLET ONE (05:10)
[2020-12-25] MEDS: methaDONE 80 MG, methaDONE 20 MG PO SCH (05:12)
[2020-12-25] MEDS: DOCUSATE SODIUM 100 MG CAPSULE (FP) PO SCH ×3 (05:12→21:14)
[2020-12-25] MEDS: TAMSULOSIN HCL 0.4 MG CAP PO SCH (09:25)
[2020-12-25] MEDS: CLOPIDOGREL BISULFATE 75 MG TABLET (FP) PO SCH (09:25)
[2020-12-25] MEDS: ISOSORBIDE MONONITRATE 30 MG TAB.SR.24H (FP) PO SCH (09:25)
[2020-12-25] MEDS: LISINOPRIL 5 MG TABLET PO SCH (09:25)
[2020-12-25 10:02] LABS: BASO % 1.4 % (0-2.0); EOS % 3.4 % (0-4.5); HEMOGLOBIN 7.8 GM/dL (11.7-16.9); LYMPH % 21.7 % (8-40); MCH 23.9 pg (25.7-33.7); MCHC 32.5 g/dl (32.0-35.9); MEAN CELL VOLUME 73.6 fl (80-96); MEAN PLT VOLUME 6.5 fl (7.5-11.1); MONO % 10.3 % (3.8-10.2); NEUT % 63.2 % (42.8-82.8); PLATELET COUNT 261 10^3/uL (134-434); RBC 3.26 M/mm3 (4.00-5.60); RDW 22.6 % (11.9-15.9); WHITE BLOOD COUNT 5.1 K/mm3 (4.0-10.0)
[2020-12-25 10:23] LABS: CALCIUM 8.5 mg/dL (8.5-10.1)
[2020-12-25 10:24] LABS: ALBUMIN 3.4 g/dl (3.4-5.0); BLOOD UREA NITROGEN 17.3 mg/dL (7-18)
[2020-12-25 10:27] LABS: CREATININE 1.6 mg/dL (0.55-1.3)
[2020-12-25 10:28] LABS: BILIRUBIN,TOTAL 0.5 mg/dL (0.2-1); TOT PROT 7.8 g/dl (6.4-8.2)
[2020-12-25 13:31] LABS: IRON SERUM 313 ug/dL (50-175)
[2020-12-25 13:32] LABS: TOTAL IRON BINDING CAPACITY 400 ug/dL (250-450)
[2020-12-25] MEDS ORDERED: QUEtiapine FUMARATE 100 MG TABLET (FP) ONE (21:12)
[2020-12-25] MEDS: QUEtiapine FUMARATE 300 MG TABLET PO SCH (21:14)
[2020-12-25] MEDS: ATORVASTATIN CA 20 MG TABLET (FP) PO SCH (21:14)
[2020-12-26] MEDS ORDERED: methaDONE HCL 10 MG TABLET ONE (05:19)
[2020-12-26] MEDS ORDERED: methaDONE HCL 40 MG DISPERSABLE TABLET ONE (05:20)
[2020-12-26] MEDS: methaDONE 80 MG, methaDONE 20 MG PO SCH (05:23)
[2020-12-26] MEDS: DOCUSATE SODIUM 100 MG CAPSULE (FP) PO SCH ×3 (05:23→21:54)
[2020-12-26 09:16] LABS: EOS % 4.5 % (0-4.5); HEMATOCRIT 24.5 % (35.4-49); HEMOGLOBIN 8.1 GM/dL (11.7-16.9); LYMPH % 22.8 % (8-40); MCH 24.3 pg (25.7-33.7); MCHC 33.1 g/dl (32.0-35.9); MEAN CELL VOLUME 73.3 fl (80-96); MEAN PLT VOLUME 6.8 fl (7.5-11.1); MONO % 10.2 % (3.8-10.2); NEUT % 61.5 % (42.8-82.8); PLATELET COUNT 234 10^3/uL (134-434); RBC 3.35 M/mm3 (4.00-5.60); RDW 24.2 % (11.9-15.9)
[2020-12-26 09:39] LABS: ALBUMIN 3.2 g/dl (3.4-5.0); BLOOD UREA NITROGEN 13.6 mg/dL (7-18); CALCIUM 8.2 mg/dL (8.5-10.1)
[2020-12-26 09:42] LABS: CREATININE 1.3 mg/dL (0.55-1.3)
[2020-12-26 09:44] LABS: BILIRUBIN,TOTAL 0.4 mg/dL (0.2-1); TOT PROT 7.4 g/dl (6.4-8.2)
[2020-12-26] MEDS: ISOSORBIDE MONONITRATE 30 MG TAB.SR.24H (FP) PO SCH (10:24)
[2020-12-26] MEDS: TAMSULOSIN HCL 0.4 MG CAP PO SCH (10:24)
[2020-12-26] MEDS: LISINOPRIL 5 MG TABLET PO SCH (10:24)
[2020-12-26] MEDS: CLOPIDOGREL BISULFATE 75 MG TABLET (FP) PO SCH (10:24)
[2020-12-26 20:07] LABS: GLIADIN ANTIBODY IGA 4 units (0-19); GLIADIN ANTIBODY IGG 1 units (0-19); TRANSGLUTAMINASE IGG < 2 U/mL (0-5)
[2020-12-26] MEDS ORDERED: QUEtiapine FUMARATE 100 MG TABLET (FP) ONE (21:53)
[2020-12-26] MEDS: QUEtiapine FUMARATE 300 MG TABLET PO SCH (21:54)
[2020-12-26] MEDS: ATORVASTATIN CA 20 MG TABLET (FP) PO SCH (21:54)
[2020-12-27] MEDS ORDERED: methaDONE HCL 10 MG TABLET ONE (05:52)
[2020-12-27] MEDS ORDERED: methaDONE HCL 40 MG DISPERSABLE TABLET ONE (05:52)
[2020-12-27] MEDS: methaDONE 80 MG, methaDONE 20 MG PO SCH (06:03)
[2020-12-27] MEDS: DOCUSATE SODIUM 100 MG CAPSULE (FP) PO SCH ×2 (06:03→14:04)
[2020-12-27] MEDS: LISINOPRIL 5 MG TABLET PO SCH (09:15)
[2020-12-27] MEDS: ISOSORBIDE MONONITRATE 30 MG TAB.SR.24H (FP) PO SCH (09:15)
[2020-12-27] MEDS: TAMSULOSIN HCL 0.4 MG CAP PO SCH (09:15)
[2020-12-27] MEDS: CLOPIDOGREL BISULFATE 75 MG TABLET (FP) PO SCH (09:15)
[2020-12-27 11:34] LABS: BASO % 1.3 % (0-2.0); EOS % 5.8 % (0-4.5); HEMATOCRIT 26.8 % (35.4-49); HEMOGLOBIN 8.4 GM/dL (11.7-16.9); LYMPH % 16.3 % (8-40); MCH 24.4 pg (25.7-33.7); MCHC 31.4 g/dl (32.0-35.9); MEAN CELL VOLUME 77.7 fl (80-96); MONO % 7.2 % (3.8-10.2); NEUT % 69.4 % (42.8-82.8); PLATELET COUNT 257 10^3/uL (134-434); RBC 3.45 M/mm3 (4.00-5.60); RDW 23.8 % (11.9-15.9); WHITE BLOOD COUNT 5.8 K/mm3 (4.0-10.0)
[2020-12-27 11:43] LABS: EPI CELLS 31 /uL (0-25.1); HYALINE CASTS 4 /uL (0-3.1); PH,URINE 5.5 (5.0-8.0); URINE APPEARANCE CLEAR; URINE BACTERIA >9,000 /uL (0-1359); URINE BILIRUBIN NEGATIVE (NEGATIVE); URINE COLOR YELLOW; URINE GLUCOSE (UA) NEGATIVE (NEGATIVE); URINE KETONE NEGATIVE (NEGATIVE); URINE LEUK ESTERASE 1+ (NEGATIVE); URINE NITRITE POSITIVE (NEGATIVE); URINE PROTEIN TRACE (NEGATIVE); URINE RBC 20 /uL (0-23.9); URINE UROBILINOGEN 0.2 mg/dL (0.2-1.0); URINE WBC 43 /uL (0-25.8)
[2020-12-27 13:48] LABS: MACROCYTOSIS 0; OVALOCYTE 2+; PLATELET ESTIMATE NORMAL; SICKELED CELLS 1+
[2020-12-27 13:53] LABS: ANISOCYTOSIS 3+
[2020-12-27 14:37] VITALS: BP 131/54; PULSE 67; TEMP 98.8
[2020-12-27] MEDS ORDERED: FERROUS SO4 325 MG TABLET (FP) PO SCH (22:00)
[2020-12-28] MEDS ORDERED: FOLIC ACID 1 MG TABLET (FP) PO SCH (10:00)
[2020-12-28] MEDS ORDERED: PANTOPRAZOLE 40 MG TABLET PO SCH (10:00)
[2020-12-28] MEDS ORDERED: ASCORBIC ACID 500 MG TABLET (FP) PO SCH (10:00)
== END 2020-12-27 16:32 | disposition home or self-care (01) | DRG 812 ==
LOC: JER 15:41 → JERBED 18:27 → J6S 21:54
PROVIDERS: ADMIT Internal Medicine; ATTEND Internal Medicine
PROC: 30233N1 Transfusion of Nonautologous Red Blood Cells into Peripheral Vein, Percutaneous Approach (ICD-10-PCS; principal; 2020-12-23)
DX: D50.9 Iron deficiency anemia, unspecified (principal); F11.20 Opioid dependence, uncomplicated; N17.9 Acute kidney failure, unspecified; N13.30 Unspecified hydronephrosis; E78.5 Hyperlipidemia, unspecified; I25.10 Atherosclerotic heart disease of native coronary artery without angina pectoris; E78.00 Pure hypercholesterolemia, unspecified; F10.20 Alcohol dependence, uncomplicated; E11.9 Type 2 diabetes mellitus without complications; K21.9 Gastro-esophageal reflux disease without esophagitis; K74.60 Unspecified cirrhosis of liver; I11.0 Hypertensive heart disease with heart failure; I50.9 Heart failure, unspecified; K44.9 Diaphragmatic hernia without obstruction or gangrene; B19.20 Unspecified viral hepatitis C without hepatic coma; K63.9 Disease of intestine, unspecified; F32.A Depression, unspecified; E66.9 Obesity, unspecified; Z68.37 Body mass index [BMI] 37.0-37.9, adult; Z87.11 Personal history of peptic ulcer disease
CPT/HCPCS: 36415; 36430; 36511; 71046-TC-FY; 76775-TC; 80053; 81003; 82105; 82272; 82550; 82553; 82728; 82784; 82962; 83516; 83540; 83550; 83880; 84484; 85025; 85045; 85610; 86850; 86900; 86901; 86922; 87340; 87517; 87522; 93005; 93010; 99285-25; C9803; J1756; P9038; P9058; U0003; U0005

== ENCOUNTER 2021-05-17 16:09 | Inpatient (IN) | payer BC, OTHER ==
[2021-05-17 17:56] LABS: BASO % 1.2 % (0-2.0); EOS % 1.4 % (0-4.5); LYMPH % 28.2 % (8-40); MCH 21.4 pg (25.7-33.7); MCHC 30.8 g/dl (32.0-35.9); MEAN CELL VOLUME 69.5 fl (80-96); MEAN PLT VOLUME 6.9 fl (7.5-11.1); MONO % 10.1 % (3.8-10.2); NEUT % 59.1 % (42.8-82.8); PLATELET COUNT 296 10^3/uL (134-434); RBC 2.16 M/mm3 (4.00-5.60); RDW 20.1 % (11.9-15.9); WHITE BLOOD COUNT 5.2 K/mm3 (4.0-10.0)
[2021-05-17 18:09] LABS: INR 1.17 (0.83-1.09); PROTHROMBIN TIME (PATIENT) 13.5 SEC (9.7-13.0)
[2021-05-17 18:12] LABS: ACTIVATED PTT 28.5 SECONDS (25.2-36.5)
[2021-05-17 18:18] LABS: HEMOGLOBIN 4.6 GM/dL (11.7-16.9)
[2021-05-17 18:19] LABS: CALCIUM 8.6 mg/dL (8.5-10.1)
[2021-05-17 18:20] LABS: ALBUMIN 3.6 g/dl (3.4-5.0); BLOOD UREA NITROGEN 19.6 mg/dL (7-18); MAGNESIUM 1.9 mg/dL (1.8-2.4)
[2021-05-17 18:23] LABS: CREATININE 1.5 mg/dL (0.55-1.3)
[2021-05-17 18:24] LABS: BILIRUBIN,TOTAL 0.4 mg/dL (0.2-1); TOT PROT 7.7 g/dl (6.4-8.2)
[2021-05-17 19:00] LABS: ANISOCYTOSIS 2+; MACROCYTOSIS 0; TEAR DROP CELLS 1+
[2021-05-18 03:39] VITALS: BMI 37.8
[2021-05-18 07:25] LABS: HEMATOCRIT 19.5 % (35.4-49); MCH 23.2 pg (25.7-33.7); MCHC 31.8 g/dl (32.0-35.9); MEAN PLT VOLUME 7.4 fl (7.5-11.1); PLATELET COUNT 284 10^3/uL (134-434); RBC 2.66 M/mm3 (4.00-5.60); RDW 21.6 % (11.9-15.9); WHITE BLOOD COUNT 5.6 K/mm3 (4.0-10.0)
[2021-05-18 07:31] LABS: HEMOGLOBIN 6.2 GM/dL (11.7-16.9)
[2021-05-18 07:49] LABS: CALCIUM 8.3 mg/dL (8.5-10.1)
[2021-05-18 07:50] LABS: ALBUMIN 3.5 g/dl (3.4-5.0); BLOOD UREA NITROGEN 16.4 mg/dL (7-18)
[2021-05-18 07:53] LABS: CREATININE 1.3 mg/dL (0.55-1.3)
[2021-05-18 07:55] LABS: BILIRUBIN,TOTAL 1.2 mg/dL (0.2-1); TOT PROT 7.4 g/dl (6.4-8.2)
[2021-05-18] MEDS ORDERED: methaDONE HCL 10 MG TABLET PO SCH (08:45)
[2021-05-18] MEDS ORDERED: methaDONE HCL 40 MG DISPERSABLE TABLET ONE (09:08)
[2021-05-18] MEDS ORDERED: methaDONE HCL 10 MG TABLET ONE (09:08)
[2021-05-18] MEDS: FERROUS SO4 325 MG TABLET (FP) PO SCH ×2 (09:58→20:33)
[2021-05-18] MEDS ORDERED: TAMSULOSIN HCL 0.4 MG CAP PO SCH (10:00)
[2021-05-18] MEDS ORDERED: LISINOPRIL 5 MG TABLET PO SCH (10:00)
[2021-05-18] MEDS ORDERED: ISOSORBIDE MONONITRATE 30 MG TAB.SR.24H (FP) PO SCH (10:00)
[2021-05-18] MEDS ORDERED: FUROSEMIDE 40 MG/4 ML INJECTABLE VIAL IVPUSH ONE ×2 (14:45→21:00)
[2021-05-18] MEDS: DOCUSATE SODIUM 100 MG CAPSULE (FP) PO SCH ×2 (14:47→21:40)
[2021-05-18 15:55] VITALS: TEMP 97.6
[2021-05-18] MEDS ORDERED: ALBUTEROL SO4 2.5/IPRATROPIUM 0.5 INH SOL 3 ML VIAL.NEB. NEB PRN (15:58)
[2021-05-18] MEDS: MAGNESIUM CITRATE 300 ML BOTTLE PO SCH ×2 (20:36→21:41)
[2021-05-18 20:45] VITALS: BP 149/77; PULSE 81
[2021-05-18] MEDS ORDERED: POTASSIUM CHLORIDE TABS 10 MEQ TABLET.ER (FP) PO ONE (21:00)
[2021-05-18] MEDS ORDERED: POLYETHYLENE GLYCOL 3350 255 GM BTL PO ONE (21:01)
[2021-05-18] MEDS ORDERED: QUEtiapine FUMARATE 100 MG TABLET (FP) PO SCH (22:00)
[2021-05-18] MEDS ORDERED: ATORVASTATIN CA 20 MG TABLET (FP) PO SCH (22:00)
[2021-05-18] MEDS ORDERED: ONDANSETRON 4 MG/2 ML VIAL IVPUSH STA (22:07)
[2021-05-18] MEDS ORDERED: ALBUTEROL SO4 0.083% IH SOL 2.5 MG/3 ML VIAL.NEB. NEB ONE (23:07)
[2021-05-18] MEDS ORDERED: EPINEPHrine 1:1,000 1 MG/ML VIAL IM ONE (23:15)
[2021-05-18] MEDS ORDERED: methylPREDNISolone NA SUCC 40 MG/1 ML VIAL IVPUSH ONE (23:15)
[2021-05-19] MEDS: MAGNESIUM CITRATE 300 ML BOTTLE PO SCH (01:49)
[2021-05-19] MEDS ORDERED: SODIUM PHOSPHATE/NA BIPHOS 133 ML ENEMA PR ONE (04:00)
[2021-05-19] MEDS: DOCUSATE SODIUM 100 MG CAPSULE (FP) PO SCH (06:20)
[2021-05-19 07:03] LABS: HEMATOCRIT 26.2 % (35.4-49); HEMOGLOBIN 8.2 GM/dL (11.7-16.9); MCH 23.5 pg (25.7-33.7); MCHC 31.3 g/dl (32.0-35.9); MEAN PLT VOLUME 7.3 fl (7.5-11.1); PLATELET COUNT 307 10^3/uL (134-434); RBC 3.49 M/mm3 (4.00-5.60); RDW 21.7 % (11.9-15.9); WHITE BLOOD COUNT 9.3 K/mm3 (4.0-10.0)
[2021-05-19 07:24] LABS: CALCIUM 8.2 mg/dL (8.5-10.1)
[2021-05-19 07:25] LABS: ALBUMIN 3.4 g/dl (3.4-5.0); BLOOD UREA NITROGEN 14.2 mg/dL (7-18); IRON SERUM 37 ug/dL (50-175)
[2021-05-19 07:26] LABS: TOTAL IRON BINDING CAPACITY 435 ug/dL (250-450)
[2021-05-19 07:28] LABS: CREATININE 1.3 mg/dL (0.55-1.3)
[2021-05-19 07:29] LABS: TOT PROT 7.6 g/dl (6.4-8.2)
[2021-05-19 07:30] LABS: BILIRUBIN,TOTAL 0.7 mg/dL (0.2-1)
[2021-05-19 08:32] LABS: ANISOCYTOSIS 2+; MACROCYTOSIS 0
== END 2021-05-19 12:16 | disposition left against medical advice (07) | DRG 812 ==
LOC: JER 16:09 → JERBED 18:55 → J4W 05-18 03:21 → OBSVTOIN 05-18 08:32
PROVIDERS: ADMIT Internal Medicine; ATTEND Internal Medicine
PROC: 30233N1 Transfusion of Nonautologous Red Blood Cells into Peripheral Vein, Percutaneous Approach (ICD-10-PCS; principal; 2021-05-18)
DX: D64.9 Anemia, unspecified (principal); N17.9 Acute kidney failure, unspecified; N13.30 Unspecified hydronephrosis; K62.5 Hemorrhage of anus and rectum; J45.909 Unspecified asthma, uncomplicated; E78.5 Hyperlipidemia, unspecified; K74.60 Unspecified cirrhosis of liver; E11.65 Type 2 diabetes mellitus with hyperglycemia; I25.10 Atherosclerotic heart disease of native coronary artery without angina pectoris; K44.9 Diaphragmatic hernia without obstruction or gangrene; F32.A Depression, unspecified; F17.200 Nicotine dependence, unspecified, uncomplicated; R60.9 Edema, unspecified; K14.8 Other diseases of tongue; I11.0 Hypertensive heart disease with heart failure; I50.9 Heart failure, unspecified; Z87.11 Personal history of peptic ulcer disease
CPT/HCPCS: 36415; 36430; 36511; 80053; 82272; 82962; 83540; 83550; 83735; 85025; 85027; 85610; 85730; 86850; 86900; 86901; 86922; 93005; 93010; 94640; 99285-25; C9803-CS; G0378; P9016; P9058; U0003; U0005

== ENCOUNTER 2021-07-07 14:12 | Emergency (ER) | payer BC, OTHER ==
[2021-07-07 14:23] VITALS: BMI 36.4
[2021-07-07 16:07] LABS: BASO % 0.7 % (0-2.0); EOS % 2.6 % (0-4.5); HEMATOCRIT 32.8 % (35.4-49); HEMOGLOBIN 10.5 GM/dL (11.7-16.9); LYMPH % 29.5 % (8-40); MCH 26.5 pg (25.7-33.7); MCHC 31.9 g/dl (32.0-35.9); MEAN PLT VOLUME 7.5 fl (7.5-11.1); MONO % 8.2 % (3.8-10.2); PLATELET COUNT 257 10^3/uL (134-434); RBC 3.95 M/mm3 (4.00-5.60); RDW 29.7 % (11.9-15.9); WHITE BLOOD COUNT 4.7 K/mm3 (4.0-10.0)
[2021-07-07 16:31] LABS: CALCIUM 9.5 mg/dL (8.5-10.1)
[2021-07-07 16:32] LABS: ALBUMIN 3.8 g/dl (3.4-5.0); BLOOD UREA NITROGEN 19.9 mg/dL (7-18)
[2021-07-07 16:35] LABS: CREATININE 1.5 mg/dL (0.55-1.3)
[2021-07-07 16:37] LABS: BILIRUBIN,TOTAL 0.4 mg/dL (0.2-1)
[2021-07-07 16:48] LABS: ANISOCYTOSIS 1+; MACROCYTOSIS 1+
[2021-07-07 18:13] VITALS: BP 160/81; PULSE 69; TEMP 97.5
== END 2021-07-07 17:55 | disposition home or self-care (01) ==
LOC: JER 14:12
DX: K62.5 Hemorrhage of anus and rectum (principal)
CPT/HCPCS: 36415; 80053; 82272; 85025; 86850; 86900; 86901; 93005; 93010; 99284-25

== ENCOUNTER 2021-10-07 18:41 | Inpatient (IN) | payer OTHER ==
[2021-10-07 21:12] LABS: EPI CELLS 7 /uL (0-25.1); HYALINE CASTS 3 /uL (0-3.1); PH,URINE 5.5 (5.0-8.0); URINE APPEARANCE CLOUDY; URINE BACTERIA 10 /uL (0-1359); URINE BILIRUBIN NEGATIVE (NEGATIVE); URINE COLOR ORANGE; URINE GLUCOSE (UA) NEGATIVE (NEGATIVE); URINE KETONE TRACE (NEGATIVE); URINE LEUK ESTERASE 2+ (NEGATIVE); URINE NITRITE NEGATIVE (NEGATIVE); URINE PROTEIN 2+ (NEGATIVE); URINE UROBILINOGEN 0.2 mg/dL (0.2-1.0); URINE WBC 79 /uL (0-25.8)
[2021-10-07 21:17] LABS: URINE RBC 660.6 /uL (0-23.9); YEAST NEGATIVE (NEGATIVE)
[2021-10-07] MEDS ORDERED: CEFTRIAXONE 1,000 MG in DEXTROSE 5%-WATER - 50 ML IVPB ONE (21:38)
[2021-10-07 21:44] LABS: HEMATOCRIT 33.1 % (35.4-49); HEMOGLOBIN 11.5 GM/dL (11.7-16.9)
[2021-10-07 21:45] LABS: BASO % 0.9 % (0-2.0); EOS % 4.1 % (0-4.5); LYMPH % 32.1 % (8-40); MCHC 34.8 g/dl (32.0-35.9); MONO % 9.7 % (3.8-10.2); NEUT % 53.2 % (42.8-82.8); PLATELET COUNT 229 10^3/uL (134-434); RDW 15.8 % (11.9-15.9)
[2021-10-07 21:51] LABS: INR 1.03 (0.83-1.09); PROTHROMBIN TIME (PATIENT) 11.8 SEC (9.7-13.0)
[2021-10-07 21:53] LABS: ACTIVATED PTT 30.9 SECONDS (25.2-36.5)
[2021-10-07] MEDS ORDERED: NALOXONE HCL 0.4 MG/ML VIAL ONE (21:54)
[2021-10-07 22:05] LABS: CALCIUM 9.4 mg/dL (8.5-10.1)
[2021-10-07 22:06] LABS: ALBUMIN 3.6 g/dl (3.4-5.0); BLOOD UREA NITROGEN 38.3 mg/dL (7-18)
[2021-10-07 22:09] LABS: CREATININE 3.3 mg/dL (0.55-1.3)
[2021-10-07 22:10] LABS: BILIRUBIN,TOTAL 0.2 mg/dL (0.2-1); TOT PROT 7.7 g/dl (6.4-8.2)
[2021-10-07] MEDS ORDERED: CEFTRIAXONE 2 GM/100 ML BAG IVPB ONE (22:23)
[2021-10-08 02:55] VITALS: PULSE 81; RESP 20; BMI 37.0
[2021-10-08 09:33] LABS: HEMATOCRIT 35.8 % (35.4-49); HEMOGLOBIN 12.3 GM/dL (11.7-16.9); MCH 31.3 pg (25.7-33.7); MCHC 34.4 g/dl (32.0-35.9); MEAN PLT VOLUME 7.3 fl (7.5-11.1); PLATELET COUNT 248 10^3/uL (134-434); RBC 3.93 M/mm3 (4.00-5.60); RDW 15.8 % (11.9-15.9); WHITE BLOOD COUNT 5.5 K/mm3 (4.0-10.0)
[2021-10-08 09:40] LABS: CALCIUM 9.8 mg/dL (8.5-10.1)
[2021-10-08 09:41] LABS: ALBUMIN 3.9 g/dl (3.4-5.0)
[2021-10-08 09:43] LABS: CREATININE 2.1 mg/dL (0.55-1.3)
[2021-10-08 09:45] LABS: BILIRUBIN,TOTAL 0.4 mg/dL (0.2-1)
[2021-10-08] MEDS ORDERED: SODIUM CHLORIDE 0.45% 1,000 ML IV SCH (13:30)
[2021-10-08] MEDS ORDERED: PANTOPRAZOLE 40 MG TABLET PO SCH (14:00)
[2021-10-08] MEDS ORDERED: ISOSORBIDE MONONITRATE 30 MG TAB.SR.24H (FP) PO SCH (14:00)
[2021-10-08 15:43] VITALS: BP 147/79; TEMP 98.8
[2021-10-08] MEDS ORDERED: INSULIN SLIDING SCALE (NOVOLOG) 1 VIAL SQ SCH (16:30)
[2021-10-08] MEDS ORDERED: ATORVASTATIN CA 20 MG TABLET (FP) PO SCH (22:00)
[2021-10-08] MEDS ORDERED: QUEtiapine FUMARATE 300 MG TABLET PO SCH (22:00)
== END 2021-10-08 16:29 | disposition left against medical advice (07) | DRG 683 ==
LOC: JER 18:41 → JERBED 22:36 → J8W 10-08 02:32
PROVIDERS: ADMIT Hospitalist; ATTEND Internal Medicine
DX: N17.9 Acute kidney failure, unspecified (principal); F11.20 Opioid dependence, uncomplicated; I13.0 Hypertensive heart and chronic kidney disease with heart failure and stage 1 through stage 4 chronic kidney disease, or unspecified chronic kidney disease; R31.0 Gross hematuria; D64.9 Anemia, unspecified; E78.5 Hyperlipidemia, unspecified; J45.909 Unspecified asthma, uncomplicated; K74.60 Unspecified cirrhosis of liver; K43.9 Ventral hernia without obstruction or gangrene; I25.10 Atherosclerotic heart disease of native coronary artery without angina pectoris; F32.A Depression, unspecified; E11.22 Type 2 diabetes mellitus with diabetic chronic kidney disease; N18.9 Chronic kidney disease, unspecified; I50.9 Heart failure, unspecified; Z87.11 Personal history of peptic ulcer disease; Z86.73 Personal history of transient ischemic attack (TIA), and cerebral infarction without residual deficits; Z86.19 Personal history of other infectious and parasitic diseases
CPT/HCPCS: 36415; 76775-TC; 80053; 81003; 85025; 85027; 85610; 85730; 86850; 86900; 86901; 87086; 93005; 93010; 99285-25; C9803-CS; U0003; U0005

== ENCOUNTER 2021-10-18 17:11 | Emergency (ER) | payer OTHER ==
[2021-10-18 17:25] VITALS: BP 125/72; PULSE 92; RESP 19; TEMP 97.8; BMI 36.9
== END 2021-10-18 19:32 | disposition home or self-care (01) ==
LOC: JER 17:11 → JERFT 17:11
DX: K46.9 Unspecified abdominal hernia without obstruction or gangrene (principal)
CPT/HCPCS: 99281-25

== ENCOUNTER 2021-12-21 16:33 | Emergency (ER) | payer OTHER ==
[2021-12-21 16:37] VITALS: BP 125/71; RESP 18; TEMP 97.6; BMI 36.9
[2021-12-21 19:24] LABS: BASO % 0.9 % (0-2.0); HEMATOCRIT 36.6 % (35.4-49); HEMOGLOBIN 12.7 GM/dL (11.7-16.9); LYMPH % 49.9 % (8-40); MCH 33.8 pg (25.7-33.7); MCHC 34.6 g/dl (32.0-35.9); MEAN CELL VOLUME 97.7 fl (80-96); MEAN PLT VOLUME 7.4 fl (7.5-11.1); MONO % 9.2 % (3.8-10.2); PLATELET COUNT 248 10^3/uL (134-434); RBC 3.74 M/mm3 (4.00-5.60); RDW 14.3 % (11.9-15.9); WHITE BLOOD COUNT 6.8 K/mm3 (4.0-10.0)
[2021-12-21 19:48] LABS: CALCIUM 9.5 mg/dL (8.5-10.1)
[2021-12-21 19:50] LABS: ALBUMIN 3.8 g/dl (3.4-5.0); BLOOD UREA NITROGEN 25.7 mg/dL (7-18)
[2021-12-21 19:53] LABS: BILIRUBIN,TOTAL 0.3 mg/dL (0.2-1); CREATININE 1.8 mg/dL (0.55-1.3); TOT PROT 7.9 g/dl (6.4-8.2)
[2021-12-21 20:05] LABS: EPI CELLS 3 /uL (0-25.1); HYALINE CASTS 0 /uL (0-3.1); URINE APPEARANCE CLEAR; URINE BACTERIA 2 /uL (0-1359); URINE BILIRUBIN NEGATIVE (NEGATIVE); URINE COLOR YELLOW; URINE GLUCOSE (UA) NEGATIVE (NEGATIVE); URINE KETONE NEGATIVE (NEGATIVE); URINE LEUK ESTERASE NEGATIVE (NEGATIVE); URINE NITRITE NEGATIVE (NEGATIVE); URINE PROTEIN NEGATIVE (NEGATIVE); URINE RBC 5 /uL (0-23.9); URINE UROBILINOGEN 0.2 mg/dL (0.2-1.0); URINE WBC 7 /uL (0-25.8)
[2021-12-21 20:42] VITALS: PULSE 92
[2021-12-21 20:48] LABS: INR 1.09 (0.83-1.09); PROTHROMBIN TIME (PATIENT) 12.5 SEC (9.7-13.0)
== END 2021-12-21 20:58 | disposition home or self-care (01) ==
LOC: JER 16:33
DX: R31.9 Hematuria, unspecified (principal); N18.9 Chronic kidney disease, unspecified
CPT/HCPCS: 36415; 80053; 81003; 82272; 85025; 85610; 99283-25

== ENCOUNTER 2022-09-18 04:55 | Observation (INO) | payer OTHER ==
[2022-09-18] MEDS ORDERED: SODIUM CHLORIDE 0.9% 500 ML INFUS.BAG IV ONE (05:33)
[2022-09-18 05:58] LABS: BASO % 1.2 % (0-2.0); EOS % 4.9 % (0-4.5); HEMATOCRIT 36.8 % (35.4-49); HEMOGLOBIN 12.3 GM/dL (11.7-16.9); LYMPH % 36.7 % (8-40); MCH 33.7 pg (25.7-33.7); MCHC 33.4 g/dl (32.0-35.9); MEAN CELL VOLUME 100.8 fl (80-96); MEAN PLT VOLUME 7.4 fl (7.5-11.1); MONO % 9.4 % (3.8-10.2); NEUT % 47.8 % (42.8-82.8); PLATELET COUNT 227 10^3/uL (134-434); RBC 3.65 M/mm3 (4.00-5.60); RDW 15.4 % (11.9-15.9); WHITE BLOOD COUNT 3.1 K/mm3 (4.0-10.0)
[2022-09-18 06:07] LABS: INR 1.02 (0.83-1.09); PROTHROMBIN TIME (PATIENT) 11.8 SEC (9.7-13.0)
[2022-09-18 06:09] LABS: ACTIVATED PTT 26.3 SECONDS (25.2-36.5)
[2022-09-18 06:23] LABS: POTASSIUM 4.1 mmol/L (3.5-5.1)
[2022-09-18 06:25] LABS: CALCIUM 8.5 mg/dL (8.5-10.1)
[2022-09-18 06:26] LABS: ALBUMIN 3.5 g/dl (3.4-5.0); BLOOD UREA NITROGEN 28.6 mg/dL (7-18)
[2022-09-18 06:29] LABS: CREATININE 1.5 mg/dL (0.55-1.3)
[2022-09-18 06:30] LABS: BILIRUBIN,TOTAL 0.2 mg/dL (0.2-1)
[2022-09-18 10:36] VITALS: BMI 36.1
[2022-09-18] MEDS ORDERED: methaDONE HCL 10 MG TABLET PO SCH ×2 (11:15→12:45)
[2022-09-18] MEDS: DEXTROSE 5%-0.45% SALINE 1,000 ML IV SCH (11:30)
[2022-09-18] MEDS: ASPIRIN COATED 81 MG TABLET.EC PO SCH (11:30)
[2022-09-18] MEDS: ISOSORBIDE MONONITRATE 30 MG TAB.SR.24H (FP) PO SCH (11:30)
[2022-09-18] MEDS: LISINOPRIL 5 MG TABLET PO SCH (11:30)
[2022-09-18] MEDS: CLOPIDOGREL BISULFATE 75 MG TABLET (FP) PO SCH (11:30)
[2022-09-18] MEDS: TAMSULOSIN HCL 0.4 MG CAP PO SCH (11:32)
[2022-09-18] MEDS: DOCUSATE SODIUM 100 MG CAPSULE (FP) PO SCH ×2 (13:42→21:34)
[2022-09-18] MEDS: INSULIN SLIDING SCALE (NOVOLOG) 1 VIAL SQ SCH ×2 (17:02→21:34)
[2022-09-18 20:36] LABS: URINE APPEARANCE CLEAR; URINE BILIRUBIN NEGATIVE (NEGATIVE); URINE COLOR YELLOW; URINE GLUCOSE (UA) 3+ (NEGATIVE); URINE KETONE TRACE (NEGATIVE); URINE LEUK ESTERASE NEGATIVE (NEGATIVE); URINE NITRITE NEGATIVE (NEGATIVE); URINE PROTEIN NEGATIVE (NEGATIVE)
[2022-09-18] MEDS ORDERED: QUEtiapine FUMARATE 100 MG TABLET (FP) ONE (21:27)
[2022-09-18] MEDS: FERROUS SO4 325 MG TABLET (FP) PO SCH (21:34)
[2022-09-18] MEDS: QUEtiapine FUMARATE 300 MG TABLET PO SCH (21:34)
[2022-09-18] MEDS: ATORVASTATIN CA 20 MG TABLET (FP) PO SCH (21:34)
[2022-09-19] MEDS: DOCUSATE SODIUM 100 MG CAPSULE (FP) PO SCH ×3 (06:09→21:25)
[2022-09-19] MEDS: INSULIN SLIDING SCALE (NOVOLOG) 1 VIAL SQ SCH ×4 (06:10→21:36)
[2022-09-19] MEDS: TAMSULOSIN HCL 0.4 MG CAP PO SCH (09:44)
[2022-09-19] MEDS: FERROUS SO4 325 MG TABLET (FP) PO SCH ×2 (09:44→21:25)
[2022-09-19] MEDS: ISOSORBIDE MONONITRATE 30 MG TAB.SR.24H (FP) PO SCH (09:44)
[2022-09-19] MEDS: CLOPIDOGREL BISULFATE 75 MG TABLET (FP) PO SCH (09:44)
[2022-09-19] MEDS: LISINOPRIL 5 MG TABLET PO SCH (09:44)
[2022-09-19] MEDS: ASPIRIN COATED 81 MG TABLET.EC PO SCH (09:44)
[2022-09-19] MEDS: PANTOPRAZOLE 40 MG TABLET PO SCH (09:44)
[2022-09-19] MEDS: ENOXAPARIN NA (PORCINE) 40 MG/0.4 ML DISP.SYRIN SQ SCH (09:45)
[2022-09-19] MEDS: POLYETHYLENE GLYCOL (HEALTHYLAX) 3350 17 GM PACKET PO SCH (09:46)
[2022-09-19 12:51] LABS: BASO % 0.9 % (0-2.0); EOS % 7.6 % (0-4.5); HEMATOCRIT 37.9 % (35.4-49); HEMOGLOBIN 12.8 GM/dL (11.7-16.9); LYMPH % 30.6 % (8-40); MCH 33.7 pg (25.7-33.7); MCHC 33.9 g/dl (32.0-35.9); MEAN CELL VOLUME 99.5 fl (80-96); MEAN PLT VOLUME 7.2 fl (7.5-11.1); MONO % 10.2 % (3.8-10.2); NEUT % 50.7 % (42.8-82.8); PLATELET COUNT 241 10^3/uL (134-434); RDW 15.1 % (11.9-15.9); WHITE BLOOD COUNT 4.3 K/mm3 (4.0-10.0)
[2022-09-19] MEDS: DEXTROSE 5%-0.45% SALINE 1,000 ML IV SCH (12:55)
[2022-09-19 13:01] LABS: POTASSIUM 4.5 mmol/L (3.5-5.1)
[2022-09-19 13:04] LABS: ALBUMIN 3.7 g/dl (3.4-5.0); BLOOD UREA NITROGEN 23.8 mg/dL (7-18); CALCIUM 8.8 mg/dL (8.5-10.1)
[2022-09-19 13:07] LABS: CREATININE 1.3 mg/dL (0.55-1.3)
[2022-09-19 13:08] LABS: TOT PROT 7.6 g/dl (6.4-8.2)
[2022-09-19 13:12] LABS: BILIRUBIN,TOTAL 0.4 mg/dL (0.2-1)
[2022-09-19] MEDS ORDERED: QUEtiapine FUMARATE 100 MG TABLET (FP) ONE (21:22)
[2022-09-19] MEDS: ATORVASTATIN CA 20 MG TABLET (FP) PO SCH (21:26)
[2022-09-19] MEDS: QUEtiapine FUMARATE 300 MG TABLET PO SCH (21:26)
[2022-09-20] MEDS: INSULIN SLIDING SCALE (NOVOLOG) 1 VIAL SQ SCH ×2 (06:29→12:00)
[2022-09-20] MEDS: DOCUSATE SODIUM 100 MG CAPSULE (FP) PO SCH ×2 (06:30→13:09)
[2022-09-20] MEDS: ISOSORBIDE MONONITRATE 30 MG TAB.SR.24H (FP) PO SCH ×2 (08:51→10:25)
[2022-09-20] MEDS: LISINOPRIL 5 MG TABLET PO SCH ×2 (08:52→10:25)
[2022-09-20] MEDS: PANTOPRAZOLE 40 MG TABLET PO SCH ×2 (08:52→10:25)
[2022-09-20 09:38] LABS: POTASSIUM 4.2 mmol/L (3.5-5.1)
[2022-09-20 09:51] LABS: CALCIUM 8.8 mg/dL (8.5-10.1)
[2022-09-20 09:52] LABS: ALBUMIN 3.6 g/dl (3.4-5.0); BILIRUBIN,TOTAL 0.2 mg/dL (0.2-1); TOT PROT 7.1 g/dl (6.4-8.2)
[2022-09-20 09:55] LABS: CREATININE 1.2 mg/dL (0.55-1.3)
[2022-09-20 12:18] LABS: CHOLESTEROL 168 mg/dL (50-200); LDL CHOLESTEROL (ONLY SJRH) 93 mg/dL (5-100)
[2022-09-20 12:21] LABS: HDL CHOLESTEROL 62 mg/dL (40-60)
[2022-09-20] MEDS: CLOPIDOGREL BISULFATE 75 MG TABLET (FP) PO SCH (13:07)
[2022-09-20] MEDS: ASPIRIN COATED 81 MG TABLET.EC PO SCH (13:07)
[2022-09-20] MEDS: FERROUS SO4 325 MG TABLET (FP) PO SCH (13:07)
[2022-09-20] MEDS: TAMSULOSIN HCL 0.4 MG CAP PO SCH (13:07)
[2022-09-20] MEDS: POLYETHYLENE GLYCOL (HEALTHYLAX) 3350 17 GM PACKET PO SCH (13:09)
[2022-09-20] MEDS: ENOXAPARIN NA (PORCINE) 40 MG/0.4 ML DISP.SYRIN SQ SCH (13:14)
[2022-09-20] MEDS: DEXTROSE 5%-0.45% SALINE 1,000 ML IV SCH (13:14)
[2022-09-20] MEDS ORDERED: NICOTINE 21 MG/24 HOURS TOPICAL PATCH TD SCH (14:30)
[2022-09-20 14:38] VITALS: BP 151/82; PULSE 77; RESP 20; TEMP 98.7
== END 2022-09-20 16:09 | disposition home or self-care (01) ==
LOC: JER 04:55 → UNDOADMOB 07:06 → INTOOBSV 07:06 → JERBED 07:06 → J4W 09:31 → JERBED 11:05 → J4W 11:05
PROVIDERS: ADMIT Internal Medicine; ATTEND Internal Medicine
PROC: 3E0337Z Introduction of Electrolytic and Water Balance Substance into Peripheral Vein, Percutaneous Approach (ICD-10-PCS; principal; 2022-09-18)
DX: I25.10 Atherosclerotic heart disease of native coronary artery without angina pectoris (principal); K27.9 Peptic ulcer, site unspecified, unspecified as acute or chronic, without hemorrhage or perforation; N17.9 Acute kidney failure, unspecified; I50.30 Unspecified diastolic (congestive) heart failure; I10 Essential (primary) hypertension; E78.5 Hyperlipidemia, unspecified; F11.20 Opioid dependence, uncomplicated; I63.9 Cerebral infarction, unspecified; D64.9 Anemia, unspecified; D50.9 Iron deficiency anemia, unspecified; J45.909 Unspecified asthma, uncomplicated; K74.60 Unspecified cirrhosis of liver; Z86.73 Personal history of transient ischemic attack (TIA), and cerebral infarction without residual deficits; E11.65 Type 2 diabetes mellitus with hyperglycemia; F15.10 Other stimulant abuse, uncomplicated; Z87.19 Personal history of other diseases of the digestive system; F17.200 Nicotine dependence, unspecified, uncomplicated; I24.9 Acute ischemic heart disease, unspecified; F10.230 Alcohol dependence with withdrawal, uncomplicated; F41.9 Anxiety disorder, unspecified; K59.01 Slow transit constipation; F32.9 Major depressive disorder, single episode, unspecified; Z95.5 Presence of coronary angioplasty implant and graft; E66.9 Obesity, unspecified
CPT/HCPCS: 36415; 71045-TC-FY; 76700-TC; 78452-TC; 80053; 80061; 81003; 82962; 83036; 84443; 84484; 85025; 85610; 85730; 86850; 86900; 86901; 93005; 93010; 93017; 93306-TC; 99285-25; A9502; G0378

== ENCOUNTER 2023-07-01 12:36 | Inpatient (IN) | payer OTHER ==
[2023-07-01 12:41] VITALS: BMI 35.4
[2023-07-01 15:03] LABS: BASO % 0.9 % (0-2.0); EOS % 3.4 % (0-4.5); HEMATOCRIT 20.3 % (35.4-49); LYMPH % 20.6 % (8-40); MCH 23.4 pg (25.7-33.7); MCHC 30.7 g/dl (32.0-35.9); MEAN CELL VOLUME 76.3 fl (80-96); MEAN PLT VOLUME 7.1 fl (7.5-11.1); MONO % 8.2 % (3.8-10.2); NEUT % 66.9 % (42.8-82.8); PLATELET COUNT 341 10^3/uL (134-434); RBC 2.66 M/mm3 (4.00-5.60); RDW 20.3 % (11.9-15.9); WHITE BLOOD COUNT 5.2 K/mm3 (4.0-10.0)
[2023-07-01 15:05] LABS: HEMOGLOBIN 6.2 GM/dL (11.7-16.9)
[2023-07-01 15:29] LABS: POTASSIUM 4.6 mmol/L (3.5-5.1)
[2023-07-01 15:32] LABS: ALBUMIN 3.3 g/dl (3.4-5.0); BLOOD UREA NITROGEN 16.3 mg/dL (7-18)
[2023-07-01 15:35] LABS: CREATININE 1.4 mg/dL (0.55-1.3)
[2023-07-01 15:37] LABS: BILIRUBIN,TOTAL 0.5 mg/dL (0.2-1); TOT PROT 7.4 g/dl (6.4-8.2)
[2023-07-01] MEDS ORDERED: FUROSEMIDE 40 MG/4 ML INJECTABLE VIAL ONE (15:43)
[2023-07-01] MEDS: FUROSEMIDE 40 MG/4 ML INJECTABLE VIAL IVPUSH ONE (15:53)
[2023-07-01 16:07] LABS: PROTHROMBIN TIME (PATIENT) 11.3 SEC (9.7-13.0)
[2023-07-01 16:10] LABS: ACTIVATED PTT 28.4 SECONDS (25.2-36.5)
[2023-07-01] MEDS ORDERED: PANTOPRAZOLE 40 MG TABLET PO ONE (18:16)
[2023-07-01] MEDS: PANTOPRAZOLE 40 MG TABLET PO SCH (18:21)
[2023-07-01] MEDS ORDERED: QUEtiapine FUMARATE 100 MG TABLET (FP) ONE (21:57)
[2023-07-01] MEDS: DOCUSATE SODIUM 100 MG CAPSULE (FP) PO SCH (22:24)
[2023-07-01] MEDS: FERROUS SO4 325 MG TABLET (FP) PO SCH (22:24)
[2023-07-01] MEDS: ATORVASTATIN CA 20 MG TABLET (FP) PO SCH (22:24)
[2023-07-01] MEDS: INSULIN ASPART SLIDING SCALE (NOVOLOG) 1 VIAL SQ SCH (22:29)
[2023-07-01] MEDS: QUEtiapine FUMARATE 100 MG TABLET (FP) PO SCH (22:36)
[2023-07-01] MEDS: QUEtiapine FUMARATE 300 MG TABLET PO SCH (22:37)
[2023-07-02] MEDS: sitaGLIPtin PHOSPHATE 50 MG TABLET PO SCH (06:34)
[2023-07-02] MEDS: metFORMIN HCL 500 MG TABLET (FP) PO SCH (06:34)
[2023-07-02 07:59] LABS: BASO % 1.7 % (0-2.0); HEMATOCRIT 24.8 % (35.4-49); HEMOGLOBIN 7.8 GM/dL (11.7-16.9); LYMPH % 26.7 % (8-40); MCH 24.4 pg (25.7-33.7); MCHC 31.5 g/dl (32.0-35.9); MEAN CELL VOLUME 77.6 fl (80-96); MEAN PLT VOLUME 7.2 fl (7.5-11.1); MONO % 9.2 % (3.8-10.2); NEUT % 58.4 % (42.8-82.8); PLATELET COUNT 348 10^3/uL (134-434); RBC 3.19 M/mm3 (4.00-5.60); RDW 19.8 % (11.9-15.9); WHITE BLOOD COUNT 6.4 K/mm3 (4.0-10.0)
[2023-07-02 08:18] LABS: POTASSIUM 4.3 mmol/L (3.5-5.1)
[2023-07-02 08:37] LABS: ALBUMIN 3.3 g/dl (3.4-5.0); BLOOD UREA NITROGEN 16.8 mg/dL (7-18)
[2023-07-02 08:38] LABS: CALCIUM 8.7 mg/dL (8.5-10.1)
[2023-07-02 08:40] LABS: CREATININE 1.2 mg/dL (0.55-1.3)
[2023-07-02 08:41] LABS: TOT PROT 7.7 g/dl (6.4-8.2)
[2023-07-02 08:42] LABS: BILIRUBIN,TOTAL 0.6 mg/dL (0.2-1)
[2023-07-02] MEDS: NICOTINE 21 MG/24 HOURS TOPICAL PATCH TD SCH (09:46)
[2023-07-02] MEDS: ASPIRIN COATED 81 MG TABLET.EC PO SCH (09:47)
[2023-07-02] MEDS: LISINOPRIL 5 MG TABLET PO SCH (09:47)
[2023-07-02] MEDS: TAMSULOSIN HCL 0.4 MG CAP PO SCH (09:47)
[2023-07-02] MEDS: ISOSORBIDE MONONITRATE 30 MG TAB.SR.24H (FP) PO SCH (09:48)
[2023-07-02] MEDS: CLOPIDOGREL BISULFATE 75 MG TABLET (FP) PO SCH (09:48)
[2023-07-02] MEDS ORDERED: PATIENT'S OWN MEDICATION (NON-FORMULARY) (Sitagliptin Phos/Metformin Hcl [Janumet 50-1,000 PO SCH (10:00)
[2023-07-02] MEDS: FERROUS SO4 325 MG TABLET (FP) PO SCH (14:26)
[2023-07-02] MEDS: methaDONE HCL 10 MG TABLET PO SCH (18:22)
[2023-07-03 08:34] LABS: HEMATOCRIT 21.6 % (35.4-49); MCH 24.9 pg (25.7-33.7); MCHC 32.5 g/dl (32.0-35.9); MEAN CELL VOLUME 76.4 fl (80-96); MEAN PLT VOLUME 6.7 fl (7.5-11.1); PLATELET COUNT 281 10^3/uL (134-434); RBC 2.82 M/mm3 (4.00-5.60); WHITE BLOOD COUNT 5.7 K/mm3 (4.0-10.0)
[2023-07-03] MEDS: FOLIC ACID 1 MG TABLET (FP) PO SCH (09:31)
[2023-07-03] MEDS: ASCORBIC ACID 500 MG TABLET (FP) PO SCH (09:31)
[2023-07-03] MEDS: PANTOPRAZOLE 40 MG TABLET PO SCH (10:26)
[2023-07-03 10:46] LABS: POTASSIUM 3.9 mmol/L (3.5-5.1)
[2023-07-03 10:48] LABS: ALBUMIN 3.1 g/dl (3.4-5.0); BLOOD UREA NITROGEN 18.4 mg/dL (7-18); CALCIUM 8.7 mg/dL (8.5-10.1)
[2023-07-03 10:51] LABS: CREATININE 1.4 mg/dL (0.55-1.3)
[2023-07-03 10:53] LABS: TOT PROT 6.7 g/dl (6.4-8.2)
[2023-07-03 11:31] LABS: BILIRUBIN,TOTAL 0.3 mg/dL (0.2-1)
[2023-07-04 08:07] LABS: HEMATOCRIT 27.2 % (35.4-49); HEMOGLOBIN 8.5 GM/dL (11.7-16.9); MCH 24.9 pg (25.7-33.7); MCHC 31.2 g/dl (32.0-35.9); MEAN CELL VOLUME 79.9 fl (80-96); MEAN PLT VOLUME 7.4 fl (7.5-11.1); PLATELET COUNT 286 10^3/uL (134-434); RDW 19.5 % (11.9-15.9); WHITE BLOOD COUNT 6.8 K/mm3 (4.0-10.0)
[2023-07-04 08:11] LABS: BASO % 0.8 % (0-2.0); EOS % 4.8 % (0-4.5); HEMATOCRIT 27.1 % (35.4-49); HEMOGLOBIN 8.6 GM/dL (11.7-16.9); LYMPH % 20.3 % (8-40); MCH 25.2 pg (25.7-33.7); MCHC 31.6 g/dl (32.0-35.9); MEAN CELL VOLUME 79.8 fl (80-96); MEAN PLT VOLUME 7.4 fl (7.5-11.1); MONO % 7.8 % (3.8-10.2); NEUT % 66.3 % (42.8-82.8); PLATELET COUNT 272 10^3/uL (134-434); RBC 3.39 M/mm3 (4.00-5.60); RDW 19.8 % (11.9-15.9); WHITE BLOOD COUNT 6.6 K/mm3 (4.0-10.0)
[2023-07-04 08:49] LABS: CALCIUM 8.7 mg/dL (8.5-10.1)
[2023-07-04 08:50] LABS: ALBUMIN 3.2 g/dl (3.4-5.0); BLOOD UREA NITROGEN 16.6 mg/dL (7-18)
[2023-07-04 08:53] LABS: BILIRUBIN,TOTAL 0.6 mg/dL (0.2-1); CREATININE 1.2 mg/dL (0.55-1.3)
[2023-07-04 09:07] LABS: POTASSIUM 3.8 mmol/L (3.5-5.1)
[2023-07-04] MEDS ORDERED: INSULIN (NOVOLOG) ASPART 100 UNITS/ML 10ML VIAL ONE (11:25)
[2023-07-04] MEDS: ATORVASTATIN CA 20 MG TABLET (FP) PO ONE (14:20)
[2023-07-04 18:32] VITALS: BP 143/84; PULSE 73; RESP 18; TEMP 98.2
[2023-07-04] MEDS ORDERED: ATORVASTATIN CA 20 MG TABLET (FP) PO SCH (22:00)
== END 2023-07-04 18:09 | disposition short-term general hospital (02) | DRG 280 ==
LOC: JER 12:36 → JERBED 15:14 → J4W 19:01
PROVIDERS: ADMIT Internal Medicine; ATTEND Internal Medicine
PROC: 30233N1 Transfusion of Nonautologous Red Blood Cells into Peripheral Vein, Percutaneous Approach (ICD-10-PCS; principal; 2023-07-01)
DX: I21.4 Non-ST elevation (NSTEMI) myocardial infarction (principal); I50.33 Acute on chronic diastolic (congestive) heart failure; F11.20 Opioid dependence, uncomplicated; I13.0 Hypertensive heart and chronic kidney disease with heart failure and stage 1 through stage 4 chronic kidney disease, or unspecified chronic kidney disease; D64.9 Anemia, unspecified; E78.5 Hyperlipidemia, unspecified; E11.9 Type 2 diabetes mellitus without complications; N40.0 Benign prostatic hyperplasia without lower urinary tract symptoms; I25.10 Atherosclerotic heart disease of native coronary artery without angina pectoris; F17.210 Nicotine dependence, cigarettes, uncomplicated; N18.9 Chronic kidney disease, unspecified; E66.9 Obesity, unspecified; Z68.37 Body mass index [BMI] 37.0-37.9, adult
CPT/HCPCS: 0241U-QW; 36415; 36430; 71045-TC-FY; 80053; 80061; 82272; 82962; 83036; 83540; 83550; 83880; 84443; 84484; 85025; 85027; 85610; 85730; 86850; 86900; 86901; 86922; 93005; 93010; 93306-TC; 99285-25; P9038; P9058

== ENCOUNTER 2023-08-20 11:57 | Inpatient (IN) | payer OTHER ==
[2023-08-20 12:37] VITALS: BMI 34.0
[2023-08-20] MEDS ORDERED: BISMUTH SUBSALICYLATE 262 MG/15 ML BTL PO PRN (14:15)
[2023-08-20] MEDS ORDERED: NICOTINE POLACRILEX 2 MG GUM BUC PRN (14:15)
[2023-08-20] MEDS ORDERED: LOPERAMIDE HCL 2 MG CAPSULE PO PRN (14:15)
[2023-08-20] MEDS ORDERED: NALOXONE (NARCAN) HCL 4 MG/0.1 ML SPRAY NS PRN (14:15)
[2023-08-20] MEDS ORDERED: IBUPROFEN 600 MG TABLET (FP) PO PRN (14:15)
[2023-08-20] MEDS ORDERED: NALOXONE HCL 0.4 MG/ML VIAL IM PRN (14:15)
[2023-08-20] MEDS ORDERED: guaiFENesin 600 MG TABLET.ER (FP) PO PRN (14:15)
[2023-08-20] MEDS ORDERED: BENZONATATE 200 MG CAPSULE PO PRN (14:15)
[2023-08-20] MEDS ORDERED: MAG HYDROX/AL HYDROX/SIMETH 30 ML UNIT-DOSE CUP PO PRN (14:15)
[2023-08-20] MEDS ORDERED: IBUPROFEN 400 MG TABLET (FP) PO PRN (14:15)
[2023-08-20] MEDS ORDERED: POLYETHYLENE GLYCOL (HEALTHYLAX) 3350 17 GM PACKET PO PRN (14:15)
[2023-08-20] MEDS ORDERED: ACETAMINOPHEN 325 MG TABLET (FP) PO PRN (14:15)
[2023-08-20] MEDS ORDERED: BENZOCAINE/MENTHOL (CHLORASEPTIC ) LOZENGE MM PRN (14:15)
[2023-08-20] MEDS ORDERED: MAGNESIUM HYDROX 2400MG/30ML ORAL SUSPENSION 30 ML CUP PO PRN (14:15)
[2023-08-20] MEDS ORDERED: ONDANSETRON *ODT* 4 MG TABLET SL PRN (14:15)
[2023-08-20] MEDS: LORazepam 1 MG TABLET PO SCH (17:28)
[2023-08-20] MEDS ORDERED: methaDONE HCL 10 MG TABLET PO ONE (18:00)
[2023-08-20] MEDS: LISINOPRIL 5 MG TABLET PO SCH (18:00)
[2023-08-20] MEDS: THIAMINE 100 MG TABLET PO SCH (22:18)
[2023-08-20] MEDS: ATORVASTATIN CA 80 MG TABLET (FP) PO SCH (22:18)
[2023-08-20] MEDS: MELATONIN 5 MG TABLETS PO SCH (22:18)
[2023-08-20] MEDS: FERROUS SO4 325 MG TABLET (FP) PO SCH (22:18)
[2023-08-20] MEDS: DOCUSATE SODIUM 100 MG CAPSULE (FP) PO SCH (22:20)
[2023-08-21] MEDS: MELATONIN 5 MG TABLETS PO ONE (01:45)
[2023-08-21] MEDS: methaDONE 80 MG, methaDONE 20 MG PO SCH (05:32)
[2023-08-21] MEDS ORDERED: methaDONE HCL 10 MG TABLET PO SCH (06:00)
[2023-08-21] MEDS: sitaGLIPtin PHOSPHATE 50 MG TABLET PO SCH (06:11)
[2023-08-21] MEDS: metFORMIN HCL 500 MG TABLET (FP) PO SCH (06:12)
[2023-08-21] MEDS: methaDONE HCL 10 MG TABLET PO ONE (07:35)
[2023-08-21] MEDS: NICOTINE 14 MG/24 HOURS TOPICAL PATCH TD SCH (09:11)
[2023-08-21] MEDS: TAMSULOSIN HCL 0.4 MG CAP PO SCH (09:11)
[2023-08-21] MEDS: CLOPIDOGREL BISULFATE 75 MG TABLET (FP) PO SCH (09:11)
[2023-08-21] MEDS: ASPIRIN COATED 81 MG TABLET.EC PO SCH (09:11)
[2023-08-21] MEDS: PANTOPRAZOLE 40 MG TABLET PO SCH (09:11)
[2023-08-21] MEDS: PRENATAL VITAMINS W/ FOLIC ACID TABLET (FP) PO SCH (09:11)
[2023-08-21] MEDS ORDERED: PATIENT'S OWN MEDICATION (NON-FORMULARY) (Sitagliptin Phos/Metformin Hcl [Janumet 50-1,000 PO SCH (10:00)
[2023-08-21] MEDS ORDERED: PATIENT'S OWN MEDICATION (NON-FORMULARY) (Omeprazole [Omeprazole] 20 MG Tablet.Dr) PO SCH (10:00)
[2023-08-21] MEDS: ISOSORBIDE MONONITRATE 30 MG TAB.SR.24H (FP) PO SCH (10:12)
[2023-08-21] MEDS: hydrALAZINE HCL 25 MG TABLET (FP) PO SCH (13:12)
[2023-08-21] MEDS ORDERED: HYDRALAZINE HCL 25 MG PO SCH (14:00)
[2023-08-21 14:05] LABS: HEMATOCRIT 32.6 % (35.4-49); HEMOGLOBIN 10.4 GM/dL (11.7-16.9); MCH 25.8 pg (25.7-33.7); MCHC 31.8 g/dl (32.0-35.9); MEAN CELL VOLUME 81.2 fl (80-96); PLATELET COUNT 389 10^3/uL (134-434); RBC 4.01 M/mm3 (4.00-5.60); WHITE BLOOD COUNT 6.7 K/mm3 (4.0-10.0)
[2023-08-21 14:09] LABS: CHLORIDE 96 mmol/L (98-107); POTASSIUM 4.4 mmol/L (3.5-5.1); SODIUM 133 mmol/L (136-145)
[2023-08-21 14:16] LABS: BLOOD UREA NITROGEN 19.2 mg/dL (7-18); CALCIUM 9.6 mg/dL (8.5-10.1)
[2023-08-21 14:17] LABS: ANION GAP 8 mmol/L (4-13); CO2 28 mmol/L (21-32); GLUCOSE,RANDOM 154 mg/dL (74-106)
[2023-08-21 14:20] LABS: CREATININE 1.4 mg/dL (0.55-1.3); SGOT/AST 41 U/L (15-37); SGPT/ALT 33 U/L (13-61)
[2023-08-21 14:21] LABS: TOT PROT 8.6 g/dl (6.4-8.2)
[2023-08-21 14:22] LABS: ALK PHOS 131 U/L (45-117)
[2023-08-21] MEDS: SUVOREXANT 10 MG TABLET PO PRN (22:26)
[2023-08-22] MEDS ORDERED: methaDONE HCL 10 MG TABLET PO SCH (06:00)
[2023-08-22] MEDS: LORazepam 1 MG TABLET PO PRN (06:13)
[2023-08-22] MEDS: LORazepam 1 MG TABLET PO SCH (06:14)
[2023-08-22 08:41] VITALS: BP 154/93; PULSE 98; RESP 18; TEMP 98
[2023-08-23] MEDS ORDERED: LORazepam 0.5 MG TABLET PO PRN
[2023-08-23] MEDS ORDERED: LORazepam 0.5 MG TABLET PO SCH (05:00)
[2023-08-24] MEDS ORDERED: LORazepam 0.5 MG TABLET PO ONE (05:00)
== END 2023-08-22 09:51 | disposition left against medical advice (07) | DRG 894 ==
LOC: YASAS 11:57 → Y6N 14:34
PROVIDERS: ADMIT Allergy & Immunology; ATTEND Surgery
PROC: HZ2ZZZZ Detoxification Services for Substance Abuse Treatment (ICD-10-PCS; principal; 2023-08-20)
DX: F10.230 Alcohol dependence with withdrawal, uncomplicated (principal); F11.20 Opioid dependence, uncomplicated; F17.210 Nicotine dependence, cigarettes, uncomplicated; D64.9 Anemia, unspecified; I25.10 Atherosclerotic heart disease of native coronary artery without angina pectoris; I11.0 Hypertensive heart disease with heart failure; I50.9 Heart failure, unspecified; E78.5 Hyperlipidemia, unspecified; E11.9 Type 2 diabetes mellitus without complications; Z79.84 Long term (current) use of oral hypoglycemic drugs; N40.0 Benign prostatic hyperplasia without lower urinary tract symptoms; Z86.73 Personal history of transient ischemic attack (TIA), and cerebral infarction without residual deficits
CPT/HCPCS: 36415; 80053; 80305; 80307; 82962; 85027; 86780; 93005; 93010

== ENCOUNTER 2023-08-28 12:05 | Inpatient (IN) | payer OTHER ==
[2023-08-28 12:53] VITALS: BMI 34.1
[2023-08-28] MEDS ORDERED: POLYETHYLENE GLYCOL (HEALTHYLAX) 3350 17 GM PACKET PO PRN (13:22)
[2023-08-28] MEDS ORDERED: MAG HYDROX/AL HYDROX/SIMETH 30 ML UNIT-DOSE CUP PO PRN (13:22)
[2023-08-28] MEDS ORDERED: MAGNESIUM HYDROX 2400MG/30ML ORAL SUSPENSION 30 ML CUP PO PRN (13:22)
[2023-08-28] MEDS ORDERED: NALOXONE (NARCAN) HCL 4 MG/0.1 ML SPRAY NS PRN (13:22)
[2023-08-28] MEDS ORDERED: LOPERAMIDE HCL 2 MG CAPSULE PO PRN (13:22)
[2023-08-28] MEDS ORDERED: BISMUTH SUBSALICYLATE 524 MG/30 ML PO PRN (13:22)
[2023-08-28] MEDS ORDERED: BENZONATATE 200 MG CAPSULE PO PRN (13:22)
[2023-08-28] MEDS ORDERED: NICOTINE POLACRILEX 2 MG GUM BUC PRN (13:22)
[2023-08-28] MEDS ORDERED: guaiFENesin 600 MG TABLET.ER (FP) PO PRN (13:22)
[2023-08-28] MEDS ORDERED: BENZOCAINE/MENTHOL (CHLORASEPTIC ) LOZENGE MM PRN (13:22)
[2023-08-28] MEDS ORDERED: NALOXONE HCL 0.4 MG/ML VIAL IM PRN (13:22)
[2023-08-28] MEDS ORDERED: ONDANSETRON *ODT* 4 MG TABLET SL PRN (13:22)
[2023-08-28] MEDS ORDERED: NICOTINE POLACRILEX 2 MG LOZENGE BC PRN (13:22)
[2023-08-28] MEDS: ACETAMINOPHEN 325 MG TABLET (FP) PO PRN (17:37)
[2023-08-28] MEDS: diazePAM 5 MG TABLET PO SCH (17:38)
[2023-08-28] MEDS: LIDOCAINE 5% TOPICAL PATCH TP SCH (17:39)
[2023-08-28] MEDS: MELATONIN 5 MG TABLETS PO SCH (22:51)
[2023-08-28] MEDS: LIDOCAINE PATCH REMOVAL MC SCH (22:52)
[2023-08-28] MEDS: THIAMINE 100 MG TABLET PO SCH (22:52)
[2023-08-28] MEDS: METHYL SALICYLATE/MENTHOL OINT 30 GM TUBE TP SCH (22:56)
[2023-08-29] MEDS: diazePAM 5 MG TABLET PO SCH (05:54)
[2023-08-29] MEDS: methaDONE 80 MG, methaDONE 10 MG PO SCH (05:55)
[2023-08-29] MEDS ORDERED: methaDONE HCL 10 MG TABLET PO SCH (06:00)
[2023-08-29] MEDS ORDERED: PATIENT'S OWN MEDICATION (NON-FORMULARY) (Sitagliptin Phos/Metformin Hcl [Janumet 50-1,000 PO SCH (10:00)
[2023-08-29] MEDS: LISINOPRIL 5 MG TABLET PO SCH (11:12)
[2023-08-29] MEDS: ASPIRIN COATED 81 MG TABLET.EC PO SCH (11:12)
[2023-08-29] MEDS: CLOPIDOGREL BISULFATE 75 MG TABLET (FP) PO SCH (11:12)
[2023-08-29] MEDS: ISOSORBIDE MONONITRATE 30 MG TAB.SR.24H (FP) PO SCH (11:13)
[2023-08-29] MEDS: PRENATAL VITAMINS W/ FOLIC ACID TABLET (FP) PO SCH (11:13)
[2023-08-29] MEDS: metFORMIN HCL 500 MG TABLET (FP) PO SCH (11:15)
[2023-08-29] MEDS: sitaGLIPtin PHOSPHATE 50 MG TABLET PO SCH (15:24)
[2023-08-30] MEDS: diazePAM 5 MG TABLET PO PRN (02:29)
[2023-08-30] MEDS: diazePAM 5 MG TABLET PO SCH (05:15)
[2023-08-30] MEDS: TAMSULOSIN HCL 0.4 MG CAP PO SCH (07:02)
[2023-08-30 12:00] LABS: POTASSIUM 4.7 mmol/L (3.5-5.1)
[2023-08-30 12:05] LABS: HEMATOCRIT 32.6 % (35.4-49); HEMOGLOBIN 10.2 GM/dL (11.7-16.9); MCH 25.9 pg (25.7-33.7); MCHC 31.3 g/dl (32.0-35.9); MEAN CELL VOLUME 82.7 fl (80-96); MEAN PLT VOLUME 7.6 fl (7.5-11.1); PLATELET COUNT 276 10^3/uL (134-434); RBC 3.95 M/mm3 (4.00-5.60); RDW 23.2 % (11.9-15.9); WHITE BLOOD COUNT 5.2 K/mm3 (4.0-10.0)
[2023-08-30 12:09] LABS: BLOOD UREA NITROGEN 24.6 mg/dL (7-18); CALCIUM 9.4 mg/dL (8.5-10.1)
[2023-08-30 12:12] LABS: CREATININE 1.5 mg/dL (0.55-1.3)
[2023-08-30 12:13] LABS: BILIRUBIN,TOTAL 0.4 mg/dL (0.2-1); TOT PROT 8.4 g/dl (6.4-8.2)
[2023-08-30] MEDS ORDERED: HYDRALAZINE HCL 25 MG PO SCH (19:45)
[2023-08-30] MEDS: hydrALAZINE HCL 25 MG TABLET (FP) PO ONE (20:56)
[2023-08-30] MEDS: SUVOREXANT 10 MG TABLET PO ONE (23:50)
[2023-08-31] MEDS: diazePAM 5 MG TABLET PO ONE (06:28)
[2023-08-31 08:46] VITALS: BP 154/74; PULSE 79; RESP 18; TEMP 98.4
[2023-08-31] MEDS ORDERED: hydrALAZINE HCL 25 MG TABLET (FP) PO SCH (18:00)
== END 2023-08-31 10:43 | disposition home or self-care (01) | DRG 897 ==
LOC: YASAS 12:05 → Y6N 13:30
PROVIDERS: ADMIT Allergy & Immunology; ATTEND Surgery
PROC: HZ2ZZZZ Detoxification Services for Substance Abuse Treatment (ICD-10-PCS; principal; 2023-08-28)
DX: F10.230 Alcohol dependence with withdrawal, uncomplicated (principal); F11.20 Opioid dependence, uncomplicated; F17.210 Nicotine dependence, cigarettes, uncomplicated; F10.282 Alcohol dependence with alcohol-induced sleep disorder; F10.24 Alcohol dependence with alcohol-induced mood disorder; F32.A Depression, unspecified; I25.10 Atherosclerotic heart disease of native coronary artery without angina pectoris; I10 Essential (primary) hypertension; E78.5 Hyperlipidemia, unspecified; E11.9 Type 2 diabetes mellitus without complications; Z79.84 Long term (current) use of oral hypoglycemic drugs; N40.0 Benign prostatic hyperplasia without lower urinary tract symptoms
CPT/HCPCS: 36415; 71101-TC-LT-FY; 80053; 80305; 85027; 86780

== ENCOUNTER 2023-09-09 14:27 | Emergency (ER) | payer OTHER ==
[2023-09-09 14:39] VITALS: RESP 16; TEMP 98.6; BMI 32.5
[2023-09-09 17:58] LABS: BASO % 0.9 % (0-2.0); HEMATOCRIT 33.8 % (35.4-49); HEMOGLOBIN 11.1 GM/dL (11.7-16.9); LYMPH % 29.1 % (8-40); MCH 26.4 pg (25.7-33.7); MCHC 32.7 g/dl (32.0-35.9); MEAN CELL VOLUME 80.8 fl (80-96); MEAN PLT VOLUME 7.1 fl (7.5-11.1); MONO % 7.4 % (3.8-10.2); NEUT % 59.6 % (42.8-82.8); PLATELET COUNT 328 10^3/uL (134-434); RBC 4.19 M/mm3 (4.00-5.60); RDW 24.6 % (11.9-15.9); WHITE BLOOD COUNT 5.1 K/mm3 (4.0-10.0)
[2023-09-09 18:17] LABS: CALCIUM 9.2 mg/dL (8.5-10.1)
[2023-09-09 18:18] LABS: ALBUMIN 3.9 g/dl (3.4-5.0); BLOOD UREA NITROGEN 31.7 mg/dL (7-18)
[2023-09-09 18:21] LABS: CREATININE 2.8 mg/dL (0.55-1.3)
[2023-09-09 18:22] LABS: INR 1.02 (0.83-1.09); PROTHROMBIN TIME (PATIENT) 11.5 SEC (9.7-13.0); TOT PROT 8.5 g/dl (6.4-8.2)
[2023-09-09 18:23] LABS: BILIRUBIN,TOTAL 0.5 mg/dL (0.2-1)
[2023-09-09] MEDS ORDERED: ACETAMINOPHEN INJECTION 100 ML IVPB ONE ×2 (18:36→21:49)
[2023-09-09] MEDS: ACETAMINOPHEN 1000 MG/100 ML BAG IVPB ONE ×2 (18:40→22:02)
[2023-09-09 19:22] LABS: ANISOCYTOSIS 2+; OVALOCYTE 1+; TEAR DROP CELLS 1+
[2023-09-09 19:32] LABS: PLATELET ESTIMATE ADEQUATE
[2023-09-09] MEDS ORDERED: methaDONE HCL 40 MG DISPERSABLE TABLET ONE (20:27)
[2023-09-09] MEDS: methaDONE HCL 40 MG DISPERSABLE TABLET PO ONE (20:35)
[2023-09-09 20:56] VITALS: BP 139/107; PULSE 101
[2023-09-09] MEDS ORDERED: QUEtiapine FUMARATE 100 MG TABLET (FP) ONE (21:49)
[2023-09-09] MEDS: QUEtiapine FUMARATE 300 MG TABLET PO ONE (22:02)
[2023-09-10] MEDS ORDERED: ACETAMINOPHEN 500 MG TABLET (FP) ONE (01:48)
== END 2023-09-10 01:55 | disposition short-term general hospital (02) ==
LOC: JER 14:27
PROC: 3E033NZ Introduction of Analgesics, Hypnotics, Sedatives into Peripheral Vein, Percutaneous Approach (ICD-10-PCS; principal; 2023-09-09)
DX: S02.32XA Fracture of orbital floor, left side, initial encounter for closed fracture (principal); M25.561 Pain in right knee; M54.9 Dorsalgia, unspecified; R51.9 Headache, unspecified; F10.129 Alcohol abuse with intoxication, unspecified; Y90.2 Blood alcohol level of 40-59 mg/100 ml; Y04.8XXA Assault by other bodily force, initial encounter
CPT/HCPCS: 36415; 70450-TC; 70486-TC; 72125-TC; 72128-TC; 72131-TC; 73562-TC-RT-FY; 80053; 80307; 85025; 85610; 85730; 93005; 93010; 96374; 99285-25; J0131

== ENCOUNTER 2023-09-10 19:42 | Inpatient (IN) | payer OTHER ==
[2023-09-10 20:23] VITALS: BMI 32.5
[2023-09-10] MEDS ORDERED: IBUPROFEN 400 MG TABLET (FP) PO PRN (21:15)
[2023-09-10] MEDS ORDERED: NALOXONE (NARCAN) HCL 4 MG/0.1 ML SPRAY NS PRN (21:15)
[2023-09-10] MEDS ORDERED: MAG HYDROX/AL HYDROX/SIMETH 30 ML UNIT-DOSE CUP PO PRN (21:15)
[2023-09-10] MEDS ORDERED: BENZONATATE 200 MG CAPSULE PO PRN (21:15)
[2023-09-10] MEDS ORDERED: POLYETHYLENE GLYCOL (HEALTHYLAX) 3350 17 GM PACKET PO PRN (21:15)
[2023-09-10] MEDS ORDERED: ONDANSETRON *ODT* 4 MG TABLET SL PRN (21:15)
[2023-09-10] MEDS ORDERED: NICOTINE POLACRILEX 2 MG GUM BUC PRN (21:15)
[2023-09-10] MEDS ORDERED: NICOTINE POLACRILEX 2 MG LOZENGE BC PRN (21:15)
[2023-09-10] MEDS ORDERED: BISMUTH SUBSALICYLATE 524 MG/30 ML PO PRN (21:15)
[2023-09-10] MEDS ORDERED: MAGNESIUM HYDROX 2400MG/30ML ORAL SUSPENSION 30 ML CUP PO PRN (21:15)
[2023-09-10] MEDS ORDERED: guaiFENesin 600 MG TABLET.ER (FP) PO PRN (21:15)
[2023-09-10] MEDS ORDERED: BENZOCAINE/MENTHOL (CHLORASEPTIC ) LOZENGE MM PRN (21:15)
[2023-09-10] MEDS ORDERED: ACETAMINOPHEN 325 MG TABLET (FP) PO PRN (21:15)
[2023-09-10] MEDS ORDERED: NALOXONE HCL 0.4 MG/ML VIAL IM PRN (21:15)
[2023-09-10] MEDS ORDERED: LOPERAMIDE HCL 2 MG CAPSULE PO PRN (21:15)
[2023-09-10] MEDS ORDERED: IBUPROFEN 600 MG TABLET (FP) PO PRN (21:15)
[2023-09-10] MEDS ORDERED: DOCUSATE SODIUM 100 MG CAPSULE (FP) PO PRN (22:51)
[2023-09-10] MEDS ORDERED: MELATONIN 5 MG TABLETS PO PRN (22:55)
[2023-09-10] MEDS: MELATONIN 5 MG TABLETS PO SCH (23:12)
[2023-09-10] MEDS: THIAMINE 100 MG TABLET PO SCH (23:12)
[2023-09-11] MEDS: TAMSULOSIN HCL 0.4 MG CAP PO SCH (07:51)
[2023-09-11] MEDS: LISINOPRIL 5 MG TABLET PO SCH (09:51)
[2023-09-11] MEDS: PANTOPRAZOLE 40 MG TABLET PO SCH (09:51)
[2023-09-11] MEDS: PRENATAL VITAMINS W/ FOLIC ACID TABLET (FP) PO SCH (09:51)
[2023-09-11] MEDS: ASPIRIN COATED 81 MG TABLET.EC PO SCH (09:51)
[2023-09-11] MEDS: methaDONE HCL 40 MG DISPERSABLE TABLET PO ONE (09:52)
[2023-09-11] MEDS: ISOSORBIDE MONONITRATE 30 MG TAB.SR.24H (FP) PO SCH (10:39)
[2023-09-11 12:44] VITALS: BP 153/84; PULSE 106; RESP 18; TEMP 98.2
[2023-09-11] MEDS ORDERED: FERROUS SO4 325 MG TABLET (FP) PO SCH (14:00)
[2023-09-11] MEDS ORDERED: SUVOREXANT 10 MG TABLET PO PRN (22:00)
[2023-09-11] MEDS ORDERED: ATORVASTATIN CA 80 MG TABLET (FP) PO SCH (22:00)
== END 2023-09-11 13:00 | disposition home or self-care (01) | DRG 897 ==
LOC: Y6N 21:15
PROVIDERS: ADMIT Allergy & Immunology; ATTEND Surgery
PROC: HZ2ZZZZ Detoxification Services for Substance Abuse Treatment (ICD-10-PCS; principal; 2023-09-10)
DX: F10.220 Alcohol dependence with intoxication, uncomplicated (principal); F11.20 Opioid dependence, uncomplicated; F10.24 Alcohol dependence with alcohol-induced mood disorder; F17.210 Nicotine dependence, cigarettes, uncomplicated; F10.282 Alcohol dependence with alcohol-induced sleep disorder; D64.9 Anemia, unspecified; E78.5 Hyperlipidemia, unspecified; G31.84 Mild cognitive impairment of uncertain or unknown etiology; I25.10 Atherosclerotic heart disease of native coronary artery without angina pectoris; I10 Essential (primary) hypertension; Z95.5 Presence of coronary angioplasty implant and graft; E11.9 Type 2 diabetes mellitus without complications; Z79.84 Long term (current) use of oral hypoglycemic drugs; K21.9 Gastro-esophageal reflux disease without esophagitis; N40.0 Benign prostatic hyperplasia without lower urinary tract symptoms; Z86.73 Personal history of transient ischemic attack (TIA), and cerebral infarction without residual deficits; Z86.2 Personal history of diseases of the blood and blood-forming organs and certain disorders involving the immune mechanism; S02.32XD Fracture of orbital floor, left side, subsequent encounter for fracture with routine healing; Y04.8XXD Assault by other bodily force, subsequent encounter; Z87.11 Personal history of peptic ulcer disease
CPT/HCPCS: 80305; 80307

== ENCOUNTER 2023-09-12 10:58 | Inpatient (IN) | payer OTHER ==
[2023-09-12 11:59] VITALS: BMI 35.1
[2023-09-12] MEDS ORDERED: METHOCARBAMOL 500 MG TABLET PO PRN (12:06)
[2023-09-12] MEDS ORDERED: MAGNESIUM HYDROX 2400MG/30ML ORAL SUSPENSION 30 ML CUP PO PRN (12:06)
[2023-09-12] MEDS ORDERED: IBUPROFEN 400 MG TABLET (FP) PO PRN (12:06)
[2023-09-12] MEDS ORDERED: IBUPROFEN 600 MG TABLET (FP) PO PRN (12:06)
[2023-09-12] MEDS ORDERED: BENZONATATE 200 MG CAPSULE PO PRN (12:06)
[2023-09-12] MEDS ORDERED: MAG HYDROX/AL HYDROX/SIMETH 30 ML UNIT-DOSE CUP PO PRN (12:06)
[2023-09-12] MEDS ORDERED: LOPERAMIDE HCL 2 MG CAPSULE PO PRN (12:06)
[2023-09-12] MEDS ORDERED: hydrOXYzine PAMOATE 25 MG CAPSULE (FP) PO PRN (12:06)
[2023-09-12] MEDS ORDERED: BENZOCAINE/MENTHOL (CHLORASEPTIC ) LOZENGE MM PRN (12:06)
[2023-09-12] MEDS ORDERED: NALOXONE HCL 0.4 MG/ML VIAL IVPUSH PRN (12:06)
[2023-09-12] MEDS ORDERED: POLYETHYLENE GLYCOL (HEALTHYLAX) 3350 17 GM PACKET PO PRN (12:06)
[2023-09-12] MEDS ORDERED: NALOXONE (NYS OPIOID OVERDOSE PROGRAM) 4 MG/0.1 ML SPRAY NS PRN (12:06)
[2023-09-12] MEDS ORDERED: guaiFENesin 600 MG TABLET.ER (FP) PO PRN (12:06)
[2023-09-12] MEDS ORDERED: PRENATAL VITAMINS W/ FOLIC ACID TABLET (FP) PO ONE (13:09)
[2023-09-12] MEDS ORDERED: NICOTINE 7 MG/24 HOURS TOPICAL PATCH TD ONE (13:09)
[2023-09-12] MEDS: NICOTINE 7 MG/24 HOURS TOPICAL PATCH TD SCH (13:18)
[2023-09-12] MEDS: PRENATAL VITAMINS W/ FOLIC ACID TABLET (FP) PO SCH (13:18)
[2023-09-12] MEDS: NALOXONE (NARCAN) HCL 4 MG/0.1 ML SPRAY NS SCH (15:09)
[2023-09-12] MEDS: metFORMIN HCL 500 MG TABLET (FP) PO SCH (17:30)
[2023-09-12] MEDS: ACAMPROSATE CALCIUM 333 MG TABLET.DR PO SCH (21:36)
[2023-09-12] MEDS: ATORVASTATIN CA 80 MG TABLET (FP) PO SCH (21:36)
[2023-09-12] MEDS: THIAMINE 100 MG TABLET PO SCH (21:36)
[2023-09-12] MEDS ORDERED: MELATONIN 5 MG TABLETS PO SCH (22:00)
[2023-09-12] MEDS: ACETAMINOPHEN 325 MG TABLET (FP) PO PRN (22:32)
[2023-09-12] MEDS: MELATONIN 5 MG TABLETS PO ONE (23:15)
[2023-09-13] MEDS: PANTOPRAZOLE 40 MG TABLET PO SCH (09:32)
[2023-09-13] MEDS: TAMSULOSIN HCL 0.4 MG CAP PO SCH (09:33)
[2023-09-13] MEDS: LISINOPRIL 5 MG TABLET PO SCH (09:33)
[2023-09-13] MEDS: ASPIRIN COATED 81 MG TABLET.EC PO SCH (09:34)
[2023-09-13] MEDS: methaDONE HCL 40 MG DISPERSABLE TABLET PO SCH (11:11)
[2023-09-13] MEDS: FERROUS SO4 325 MG TABLET (FP) PO SCH (11:11)
[2023-09-13] MEDS ORDERED: TUBERCULIN PPD 5 TU/0.1ML VIAL ID ONE (12:57)
[2023-09-13] MEDS: DOCUSATE SODIUM 100 MG CAPSULE (FP) PO SCH (13:04)
[2023-09-13] MEDS ORDERED: INSULIN (NOVOLOG) ASPART 100 UNITS/ML 10ML VIAL ONE (16:34)
[2023-09-13] MEDS: INSULIN ASPART SLIDING SCALE (NOVOLOG) 1 VIAL SQ SCH (16:36)
[2023-09-13] MEDS: QUEtiapine FUMARATE 50 MG TABLET PO SCH (21:32)
[2023-09-13] MEDS: MELATONIN 5 MG TABLETS PO ONE (23:09)
[2023-09-14 06:41] VITALS: TEMP 97.1
[2023-09-14 09:16] VITALS: BP 155/79; PULSE 92; RESP 18
== END 2023-09-14 13:05 | disposition left against medical advice (07) | DRG 894 ==
LOC: YASAS 10:58 → Y3NR 13:52 → Y3E 09-13 11:37
PROVIDERS: ADMIT Allergy & Immunology; ATTEND Psychiatry & Neurology Pain Medicine
PROC: HZ42ZZZ Group Counseling for Substance Abuse Treatment, Cognitive-Behavioral (ICD-10-PCS; principal; 2023-09-12)
DX: F10.20 Alcohol dependence, uncomplicated (principal); F11.20 Opioid dependence, uncomplicated; I13.0 Hypertensive heart and chronic kidney disease with heart failure and stage 1 through stage 4 chronic kidney disease, or unspecified chronic kidney disease; N18.4 Chronic kidney disease, stage 4 (severe); F17.210 Nicotine dependence, cigarettes, uncomplicated; F32.A Depression, unspecified; G47.00 Insomnia, unspecified; I25.10 Atherosclerotic heart disease of native coronary artery without angina pectoris; I50.9 Heart failure, unspecified; Z95.5 Presence of coronary angioplasty implant and graft; E11.9 Type 2 diabetes mellitus without complications; Z79.84 Long term (current) use of oral hypoglycemic drugs; N40.0 Benign prostatic hyperplasia without lower urinary tract symptoms; Z87.19 Personal history of other diseases of the digestive system; Z87.11 Personal history of peptic ulcer disease
CPT/HCPCS: 80305; 82140; 82962; 87811

== ENCOUNTER 2023-09-27 19:22 | Inpatient (IN) | payer OTHER ==
[2023-09-27 19:50] VITALS: BMI 29.5
[2023-09-27] MEDS ORDERED: LOPERAMIDE HCL 2 MG CAPSULE PO PRN (20:04)
[2023-09-27] MEDS ORDERED: NICOTINE POLACRILEX 2 MG LOZENGE BC PRN (20:04)
[2023-09-27] MEDS ORDERED: BENZOCAINE/MENTHOL (CHLORASEPTIC ) LOZENGE MM PRN (20:04)
[2023-09-27] MEDS ORDERED: BENZONATATE 200 MG CAPSULE PO PRN (20:04)
[2023-09-27] MEDS ORDERED: NICOTINE POLACRILEX 2 MG GUM BUC PRN (20:04)
[2023-09-27] MEDS ORDERED: POLYETHYLENE GLYCOL (HEALTHYLAX) 3350 17 GM PACKET PO PRN (20:04)
[2023-09-27] MEDS ORDERED: LORazepam 1 MG TABLET PO PRN (20:04)
[2023-09-27] MEDS ORDERED: ONDANSETRON *ODT* 4 MG TABLET SL PRN (20:04)
[2023-09-27] MEDS ORDERED: P-EPHED 60MG/TRIPROLIDI 2.5MG TABLET PO PRN (20:04)
[2023-09-27] MEDS ORDERED: MAGNESIUM HYDROX 2400MG/30ML ORAL SUSPENSION 30 ML CUP PO PRN (20:04)
[2023-09-27] MEDS ORDERED: ACETAMINOPHEN 325 MG TABLET (FP) PO PRN (20:04)
[2023-09-27] MEDS ORDERED: MAG HYDROX/AL HYDROX/SIMETH 30 ML UNIT-DOSE CUP PO PRN (20:04)
[2023-09-27] MEDS ORDERED: guaiFENesin 600 MG TABLET.ER (FP) PO PRN (20:04)
[2023-09-27] MEDS ORDERED: LORazepam 2 MG TABLET ONE (20:18)
[2023-09-27] MEDS: LORazepam 2 MG TABLET PO ONE (20:50)
[2023-09-27] MEDS: DOCUSATE SODIUM 100 MG CAPSULE (FP) PO SCH (22:13)
[2023-09-27] MEDS: ATORVASTATIN CA 80 MG TABLET (FP) PO SCH (22:14)
[2023-09-27] MEDS: THIAMINE 100 MG TABLET PO SCH (22:14)
[2023-09-27] MEDS: FERROUS SO4 325 MG TABLET (FP) PO SCH (22:14)
[2023-09-27] MEDS: MELATONIN 5 MG TABLETS PO SCH (22:14)
[2023-09-27] MEDS: LORazepam 2 MG TABLET PO SCH (23:19)
[2023-09-28] MEDS: metFORMIN HCL 500 MG TABLET (FP) PO SCH (06:26)
[2023-09-28] MEDS: sitaGLIPtin PHOSPHATE 50 MG TABLET PO SCH (06:26)
[2023-09-28] MEDS: TAMSULOSIN HCL 0.4 MG CAP PO SCH (08:46)
[2023-09-28] MEDS ORDERED: PATIENT'S OWN MEDICATION (NON-FORMULARY) (Sitagliptin Phos/Metformin Hcl [Janumet 50-1,000 PO SCH (10:00)
[2023-09-28] MEDS ORDERED: ISOSORBIDE MONONITRATE 30 MG TAB.SR.24H (FP) PO SCH (10:00)
[2023-09-28] MEDS ORDERED: LISINOPRIL 5 MG TABLET PO SCH (10:00)
[2023-09-28 10:37] LABS: POTASSIUM 4.2 mmol/L (3.5-5.1)
[2023-09-28 10:38] LABS: HEMATOCRIT 31.8 % (35.4-49); HEMOGLOBIN 10.3 GM/dL (11.7-16.9); MCH 27.2 pg (25.7-33.7); MCHC 32.4 g/dl (32.0-35.9); MEAN CELL VOLUME 84.2 fl (80-96); MEAN PLT VOLUME 7.1 fl (7.5-11.1); PLATELET COUNT 239 10^3/uL (134-434); RBC 3.78 M/mm3 (4.00-5.60); RDW 25.7 % (11.9-15.9); WHITE BLOOD COUNT 3.8 K/mm3 (4.0-10.0)
[2023-09-28 10:44] LABS: ALBUMIN 3.3 g/dl (3.4-5.0); CALCIUM 8.7 mg/dL (8.5-10.1)
[2023-09-28 10:47] LABS: CREATININE 1.8 mg/dL (0.55-1.3)
[2023-09-28 10:48] LABS: BILIRUBIN,TOTAL 0.5 mg/dL (0.2-1); TOT PROT 7.4 g/dl (6.4-8.2)
[2023-09-28] MEDS: PANTOPRAZOLE 40 MG TABLET PO SCH (10:55)
[2023-09-28] MEDS: ASPIRIN COATED 81 MG TABLET.EC PO SCH (10:55)
[2023-09-28] MEDS: CLOPIDOGREL BISULFATE 75 MG TABLET (FP) PO SCH (10:55)
[2023-09-28] MEDS: PRENATAL VITAMINS W/ FOLIC ACID TABLET (FP) PO SCH (10:55)
[2023-09-28] MEDS: LOSARTAN POTASSIUM 50 MG TABLET PO SCH (12:54)
[2023-09-28] MEDS: HYDROCHLOROTHIAZIDE 12.5 MG CAPSULE (FP) PO SCH (12:54)
[2023-09-28] MEDS: LOSARTAN 50MG/HCTZ 12.5MG 1 TAB PO SCH (12:58)
[2023-09-29] MEDS: LORazepam 1 MG TABLET PO SCH (05:31)
[2023-09-29 09:08] VITALS: BP 130/73; PULSE 90; RESP 17; TEMP 97.6
[2023-09-29] MEDS ORDERED: RIFAXIMIN 550 MG TABLET PO SCH (22:00)
[2023-09-30] MEDS ORDERED: LORazepam 0.5 MG TABLET PO PRN
[2023-09-30] MEDS ORDERED: LORazepam 0.5 MG TABLET PO SCH (05:00)
[2023-10-01] MEDS ORDERED: LORazepam 0.5 MG TABLET PO ONE (05:00)
== END 2023-09-29 11:30 | disposition left against medical advice (07) | DRG 894 ==
LOC: YASAS 19:22 → Y6N 20:24
PROVIDERS: ADMIT Allergy & Immunology; ATTEND Surgery
PROC: HZ2ZZZZ Detoxification Services for Substance Abuse Treatment (ICD-10-PCS; principal; 2023-09-27)
DX: F10.230 Alcohol dependence with withdrawal, uncomplicated (principal); I13.0 Hypertensive heart and chronic kidney disease with heart failure and stage 1 through stage 4 chronic kidney disease, or unspecified chronic kidney disease; N18.4 Chronic kidney disease, stage 4 (severe); I50.30 Unspecified diastolic (congestive) heart failure; F17.210 Nicotine dependence, cigarettes, uncomplicated; E11.22 Type 2 diabetes mellitus with diabetic chronic kidney disease; Z79.84 Long term (current) use of oral hypoglycemic drugs; D50.9 Iron deficiency anemia, unspecified; N40.0 Benign prostatic hyperplasia without lower urinary tract symptoms; K70.30 Alcoholic cirrhosis of liver without ascites; E78.5 Hyperlipidemia, unspecified; B18.2 Chronic viral hepatitis C; I65.23 Occlusion and stenosis of bilateral carotid arteries; I25.10 Atherosclerotic heart disease of native coronary artery without angina pectoris; J45.909 Unspecified asthma, uncomplicated; Z95.5 Presence of coronary angioplasty implant and graft; Z86.19 Personal history of other infectious and parasitic diseases; Z56.0 Unemployment, unspecified
CPT/HCPCS: 36415; 80053; 80305; 80307; 82140; 82962; 85027; 93005; 93010

== ENCOUNTER 2023-10-03 10:40 | Observation (INO) | payer OTHER ==
[2023-10-03 10:51] VITALS: TEMP 98.4; BMI 32.5
[2023-10-03] MEDS ORDERED: THIAMINE HCL 200 MG/2 ML VIAL ONE ×2 (12:15→12:17)
[2023-10-03] MEDS: THIAMINE HCL 200 MG/2 ML VIAL IVPB ONE (12:27)
[2023-10-03] MEDS: SODIUM CHLORIDE 1,000 ML IV SCH (12:27)
[2023-10-03 12:36] LABS: BASO % 1.2 % (0-2.0); EOS % 4.4 % (0-4.5); HEMATOCRIT 33.6 % (35.4-49); HEMOGLOBIN 10.9 GM/dL (11.7-16.9); LYMPH % 28.9 % (8-40); MCH 27.4 pg (25.7-33.7); MCHC 32.4 g/dl (32.0-35.9); MEAN CELL VOLUME 84.3 fl (80-96); MEAN PLT VOLUME 7.1 fl (7.5-11.1); MONO % 11.2 % (3.8-10.2); NEUT % 54.3 % (42.8-82.8); PLATELET COUNT 256 10^3/uL (134-434); RBC 3.99 M/mm3 (4.00-5.60); RDW 25.9 % (11.9-15.9); WHITE BLOOD COUNT 3.5 K/mm3 (4.0-10.0)
[2023-10-03 12:38] LABS: VENOUS BASE EXCESS -0.8 mmol/L (-2-2); VENOUS O2 SATURATION 70.7 % (70-80); VENOUS PCO2 56.9 mmHg (38-52); VENOUS PH 7.287 (7.310-7.410)
[2023-10-03 12:48] LABS: INR 0.98 (0.83-1.09); PROTHROMBIN TIME (PATIENT) 11.3 SEC (9.7-13.0)
[2023-10-03 12:51] LABS: ACTIVATED PTT 29.7 SECONDS (25.2-36.5)
[2023-10-03 13:05] LABS: LACTIC ACID 3.2 mmol/L (0.4-2.0)
[2023-10-03 13:10] LABS: ANISOCYTOSIS 2+; MACROCYTOSIS 1+
[2023-10-03 13:29] LABS: POTASSIUM 4.4 mmol/L (3.5-5.1)
[2023-10-03 13:31] LABS: MAGNESIUM 1.6 mg/dL (1.8-2.4)
[2023-10-03 13:32] LABS: ALBUMIN 3.5 g/dl (3.4-5.0); BLOOD UREA NITROGEN 18.9 mg/dL (7-18); CALCIUM 9.5 mg/dL (8.5-10.1)
[2023-10-03 13:34] LABS: CREATININE 1.3 mg/dL (0.55-1.3)
[2023-10-03 13:36] LABS: TOT PROT 7.6 g/dl (6.4-8.2)
[2023-10-03 13:37] LABS: BILIRUBIN,TOTAL 0.6 mg/dL (0.2-1)
[2023-10-03] MEDS ORDERED: ENOXAPARIN NA (PORCINE) 100 MG/1 ML DISP.SYRIN SQ ONE (15:25)
[2023-10-03 15:44] VITALS: BP 122/65; PULSE 94; RESP 18
[2023-10-03] MEDS: ENOXAPARIN NA (PORCINE) 100 MG/1 ML DISP.SYRIN SQ ONE (15:44)
[2023-10-03] MEDS ORDERED: ALBUTEROL SO4 2.5/IPRATROPIUM 0.5 INH SOL 3 ML VIAL.NEB. NEB PRN (16:54)
[2023-10-03 17:11] LABS: OPIATES, URI NEGATIVE (NEGATIVE); URINE BARBITURATES NEGATIVE (NEGATIVE); URINE BENZODIAZEPINES NEGATIVE (NEGATIVE)
[2023-10-03 17:12] LABS: PHENCYCLIDINE,URINE NEGATIVE (NEGATIVE)
[2023-10-03 17:20] LABS: COCAINE, UR NEGATIVE (NEGATIVE); METHADONE, UR POSITIVE (NEGATIVE); URINE AMPHETAMINES NEGATIVE (NEGATIVE)
[2023-10-03 17:41] LABS: PH,URINE 6.5 (5.0-8.0); URINE APPEARANCE CLEAR; URINE BILIRUBIN NEGATIVE (NEGATIVE); URINE COLOR YELLOW; URINE GLUCOSE (UA) NEGATIVE (NEGATIVE); URINE KETONE NEGATIVE (NEGATIVE); URINE LEUK ESTERASE NEGATIVE (NEGATIVE); URINE NITRITE NEGATIVE (NEGATIVE); URINE PROTEIN TRACE (NEGATIVE); URINE UROBILINOGEN 4.0 E.U/dl mg/dL (0.2-1.0)
[2023-10-03 17:45] LABS: EPI CELLS 4 /uL (0-25.1); HYALINE CASTS 0 /uL (0-3.1); URINE BACTERIA 12 /uL (0-1359); URINE RBC 12 /uL (0-23.9); URINE WBC 5 /uL (0-25.8)
[2023-10-03] MEDS: chlordiazePOXIDE HCL 25 MG CAPSULE PO ONE (19:30)
[2023-10-03] MEDS ORDERED: ATORVASTATIN CA 80 MG TABLET (FP) PO SCH (22:00)
[2023-10-03] MEDS ORDERED: ENOXAPARIN NA (PORCINE) 100 MG/1 ML DISP.SYRIN SQ SCH (23:30)
[2023-10-04] MEDS ORDERED: TAMSULOSIN HCL 0.4 MG CAP PO SCH (08:30)
== END 2023-10-03 18:50 | disposition short-term general hospital (02) ==
LOC: JER 10:40 → JERBED 14:27
PROVIDERS: ADMIT Internal Medicine; ATTEND Internal Medicine
PROC: 3E023GC Introduction of Other Therapeutic Substance into Muscle, Percutaneous Approach (ICD-10-PCS; principal; 2023-10-03)
PROC: 3E0337Z Introduction of Electrolytic and Water Balance Substance into Peripheral Vein, Percutaneous Approach (ICD-10-PCS; 2023-10-03)
PROC: 3E033GC Introduction of Other Therapeutic Substance into Peripheral Vein, Percutaneous Approach (ICD-10-PCS; 2023-10-03)
DX: D64.9 Anemia, unspecified (principal); I50.32 Chronic diastolic (congestive) heart failure; I25.10 Atherosclerotic heart disease of native coronary artery without angina pectoris; I21.4 Non-ST elevation (NSTEMI) myocardial infarction; E11.9 Type 2 diabetes mellitus without complications; F10.20 Alcohol dependence, uncomplicated; F41.9 Anxiety disorder, unspecified; E78.5 Hyperlipidemia, unspecified; B19.20 Unspecified viral hepatitis C without hepatic coma; K74.60 Unspecified cirrhosis of liver; F19.21 Other psychoactive substance dependence, in remission; R01.1 Cardiac murmur, unspecified; M62.81 Muscle weakness (generalized); Z72.0 Tobacco use
CPT/HCPCS: 36415; 70450-TC; 70496-TC; 70498-TC; 70551-TC; 80053; 80061; 80307; 81003; 82140; 82550; 82553; 82803; 82962; 83036; 83605; 83735; 84484; 85025; 85610; 85730; 86850; 86900; 86901; 96361; 96372; 96374; 99291; G0378; Q9967

== ENCOUNTER 2023-10-04 14:11 | Inpatient (IN) | payer OTHER ==
[2023-10-04 15:41] LABS: BASO % 1.5 % (0-2.0); EOS % 1.4 % (0-4.5); HEMATOCRIT 33.5 % (35.4-49); HEMOGLOBIN 10.7 GM/dL (11.7-16.9); LYMPH % 37.3 % (8-40); MCH 27.2 pg (25.7-33.7); MCHC 32.1 g/dl (32.0-35.9); MEAN CELL VOLUME 84.6 fl (80-96); MEAN PLT VOLUME 6.8 fl (7.5-11.1); MONO % 9.5 % (3.8-10.2); NEUT % 50.3 % (42.8-82.8); PLATELET COUNT 268 10^3/uL (134-434); RBC 3.96 M/mm3 (4.00-5.60); RDW 25.9 % (11.9-15.9); WHITE BLOOD COUNT 3.5 K/mm3 (4.0-10.0)
[2023-10-04 15:47] LABS: VENOUS BASE EXCESS -0.3 mmol/L (-2-2); VENOUS PCO2 46.3 mmHg (38-52); VENOUS PH 7.359 (7.310-7.410)
[2023-10-04 15:48] LABS: INR 0.96 (0.83-1.09); PROTHROMBIN TIME (PATIENT) 10.9 SEC (9.7-13.0)
[2023-10-04 15:50] LABS: ACTIVATED PTT 31.2 SECONDS (25.2-36.5)
[2023-10-04 16:08] LABS: POTASSIUM 3.7 mmol/L (3.5-5.1)
[2023-10-04 16:10] LABS: ALBUMIN 3.6 g/dl (3.4-5.0); BLOOD UREA NITROGEN 14.2 mg/dL (7-18)
[2023-10-04 16:13] LABS: CREATININE 1.3 mg/dL (0.55-1.3)
[2023-10-04 16:15] LABS: BILIRUBIN,TOTAL 0.4 mg/dL (0.2-1); TOT PROT 7.9 g/dl (6.4-8.2)
[2023-10-04 16:23] LABS: LACTIC ACID 2.6 mmol/L (0.4-2.0)
[2023-10-04] MEDS ORDERED: ENOXAPARIN NA (PORCINE) 100 MG/1 ML DISP.SYRIN SQ ONE (19:23)
[2023-10-04] MEDS: ENOXAPARIN NA (PORCINE) 100 MG/1 ML DISP.SYRIN SQ ONE (19:32)
[2023-10-05] MEDS: THIAMINE HCL 200 MG/2 ML VIAL IVPB ONE (01:02)
[2023-10-05] MEDS ORDERED: QUEtiapine FUMARATE 100 MG TABLET (FP) ONE (03:14)
[2023-10-05] MEDS: QUEtiapine FUMARATE 100 MG TABLET (FP) PO ONE (03:24)
[2023-10-05 06:14] LABS: BASO % 1.7 % (0-2.0); EOS % 2.1 % (0-4.5); HEMATOCRIT 32.1 % (35.4-49); HEMOGLOBIN 10.3 GM/dL (11.7-16.9); LYMPH % 39.8 % (8-40); MCH 27.5 pg (25.7-33.7); MCHC 32.3 g/dl (32.0-35.9); MEAN CELL VOLUME 85.2 fl (80-96); MEAN PLT VOLUME 7.2 fl (7.5-11.1); MONO % 8.8 % (3.8-10.2); NEUT % 47.6 % (42.8-82.8); RBC 3.76 M/mm3 (4.00-5.60); RDW 25.8 % (11.9-15.9); WHITE BLOOD COUNT 5.1 K/mm3 (4.0-10.0)
[2023-10-05 06:33] LABS: CALCIUM 8.9 mg/dL (8.5-10.1)
[2023-10-05 06:34] LABS: ALBUMIN 3.4 g/dl (3.4-5.0); BLOOD UREA NITROGEN 14.8 mg/dL (7-18)
[2023-10-05 06:37] LABS: CREATININE 1.2 mg/dL (0.55-1.3)
[2023-10-05 06:39] LABS: BILIRUBIN,TOTAL 0.6 mg/dL (0.2-1); TOT PROT 7.4 g/dl (6.4-8.2)
[2023-10-05 08:10] LABS: EPI CELLS 7 /uL (0-25.1); HYALINE CASTS 0 /uL (0-3.1); URINE APPEARANCE CLEAR; URINE BACTERIA 2 /uL (0-1359); URINE BILIRUBIN NEGATIVE (NEGATIVE); URINE COLOR DK YELLOW; URINE GLUCOSE (UA) 1+ (NEGATIVE); URINE KETONE TRACE (NEGATIVE); URINE LEUK ESTERASE NEGATIVE (NEGATIVE); URINE NITRITE NEGATIVE (NEGATIVE); URINE PROTEIN 1+ (NEGATIVE); URINE RBC 10 /uL (0-23.9); URINE WBC 4 /uL (0-25.8)
[2023-10-05 08:48] LABS: PLATELET COUNT 214 10^3/uL (134-434)
[2023-10-05] MEDS: ENOXAPARIN NA (PORCINE) 100 MG/1 ML DISP.SYRIN SQ SCH (08:59)
[2023-10-05] MEDS ORDERED: ENOXAPARIN NA (PORCINE) 100 MG/1 ML DISP.SYRIN SQ ONE (09:11)
[2023-10-05 10:29] VITALS: BMI 33.4
[2023-10-05] MEDS: MULTIVITAMINS (DAILY MVI) TABLET (FP) PO SCH (11:36)
[2023-10-05] MEDS: THIAMINE 100 MG TABLET PO SCH (11:37)
[2023-10-05] MEDS: TAMSULOSIN HCL 0.4 MG CAP PO SCH (11:37)
[2023-10-05] MEDS: ACETAMINOPHEN 325 MG TABLET (FP) PO ONE ×2 (16:29→21:53)
[2023-10-05] MEDS: QUEtiapine FUMARATE 300 MG TABLET PO ONE (21:52)
[2023-10-05] MEDS: ATORVASTATIN CA 80 MG TABLET (FP) PO SCH (21:54)
[2023-10-06 08:43] VITALS: BP 145/73; PULSE 92; RESP 18; TEMP 98.5
== END 2023-10-06 14:35 | disposition left against medical advice (07) | DRG 894 ==
LOC: JER 14:11 → JERBED 19:31 → J4S 10-05 09:25
PROVIDERS: ADMIT Internal Medicine; ATTEND Internal Medicine
DX: F10.239 Alcohol dependence with withdrawal, unspecified (principal); I50.32 Chronic diastolic (congestive) heart failure; I25.10 Atherosclerotic heart disease of native coronary artery without angina pectoris; E78.5 Hyperlipidemia, unspecified; E11.9 Type 2 diabetes mellitus without complications; K74.60 Unspecified cirrhosis of liver; D64.9 Anemia, unspecified; R29.810 Facial weakness; K21.9 Gastro-esophageal reflux disease without esophagitis; I11.0 Hypertensive heart disease with heart failure; F32.A Depression, unspecified; N40.0 Benign prostatic hyperplasia without lower urinary tract symptoms
CPT/HCPCS: 36415; 70450-TC; 80053; 80307; 81003; 82550; 82553; 82803; 82962; 83605; 84484; 85025; 85610; 85730; 86850; 86900; 86901; 99285-25

== ENCOUNTER 2023-10-07 02:13 | Observation (INO) | payer OTHER ==
[2023-10-07 02:24] VITALS: BMI 35.4
[2023-10-07 03:53] LABS: EOS % 3.3 % (0-4.5); HEMATOCRIT 31.6 % (35.4-49); HEMOGLOBIN 10.4 GM/dL (11.7-16.9); LYMPH % 38.5 % (8-40); MCH 27.9 pg (25.7-33.7); MCHC 32.9 g/dl (32.0-35.9); MEAN CELL VOLUME 84.7 fl (80-96); MEAN PLT VOLUME 6.9 fl (7.5-11.1); MONO % 9.3 % (3.8-10.2); NEUT % 47.9 % (42.8-82.8); PLATELET COUNT 230 10^3/uL (134-434); RBC 3.73 M/mm3 (4.00-5.60); RDW 25.6 % (11.9-15.9); WHITE BLOOD COUNT 3.5 K/mm3 (4.0-10.0)
[2023-10-07 04:29] LABS: POTASSIUM 3.3 mmol/L (3.5-5.1)
[2023-10-07 04:31] LABS: CALCIUM 9.7 mg/dL (8.5-10.1); MACROCYTOSIS 1+; TEAR DROP CELLS 1+
[2023-10-07 04:32] LABS: ALBUMIN 3.7 g/dl (3.4-5.0); BLOOD UREA NITROGEN 12.4 mg/dL (7-18)
[2023-10-07 04:35] LABS: CREATININE 1.3 mg/dL (0.55-1.3)
[2023-10-07 04:37] LABS: BILIRUBIN,TOTAL 0.6 mg/dL (0.2-1); TOT PROT 7.8 g/dl (6.4-8.2)
[2023-10-07] MEDS ORDERED: chlordiazePOXIDE HCL 25 MG CAPSULE PO PRN (04:38)
[2023-10-07] MEDS ORDERED: chlordiazePOXIDE HCL 25 MG CAPSULE ONE ×3 (05:28→16:20)
[2023-10-07] MEDS: chlordiazePOXIDE HCL 25 MG CAPSULE PO SCH (05:29)
[2023-10-07] MEDS ORDERED: IBUPROFEN 400 MG TABLET (FP) PO ONE ×2 (06:34→16:20)
[2023-10-07] MEDS: IBUPROFEN 400 MG TABLET (FP) PO PRN (06:38)
[2023-10-07] MEDS: INSULIN ASPART SLIDING SCALE (NOVOLOG) 1 VIAL SQ SCH (07:29)
[2023-10-07] MEDS ORDERED: methaDONE HCL 10 MG TABLET ONE (07:40)
[2023-10-07] MEDS ORDERED: ENOXAPARIN NA (PORCINE) 100 MG/1 ML DISP.SYRIN SQ ONE (07:40)
[2023-10-07] MEDS: POTASSIUM CHLORIDE ORAL LIQUID 20 MEQ/15 ML PO ONE ×2 (07:44→13:12)
[2023-10-07] MEDS ORDERED: TAMSULOSIN HCL 0.4 MG CAP ONE (07:45)
[2023-10-07] MEDS: methaDONE HCL 10 MG TABLET PO ONE (07:45)
[2023-10-07] MEDS: ENOXAPARIN NA (PORCINE) 100 MG/1 ML DISP.SYRIN SQ ONE (07:45)
[2023-10-07] MEDS: TAMSULOSIN HCL 0.4 MG CAP PO SCH (07:46)
[2023-10-07 08:20] LABS: URINE BARBITURATES NEGATIVE (NEGATIVE)
[2023-10-07 08:21] LABS: OPIATES, URI NEGATIVE (NEGATIVE); PHENCYCLIDINE,URINE NEGATIVE (NEGATIVE); URINE AMPHETAMINES NEGATIVE (NEGATIVE)
[2023-10-07 08:24] LABS: COCAINE, UR NEGATIVE (NEGATIVE); METHADONE, UR POSITIVE (NEGATIVE); URINE BENZODIAZEPINES POSITIVE (NEGATIVE)
[2023-10-07 09:55] VITALS: TEMP 98
[2023-10-07] MEDS ORDERED: ASPIRIN COATED 81 MG TABLET.EC PO SCH (10:00)
[2023-10-07] MEDS ORDERED: PATIENT'S OWN MEDICATION (NON-FORMULARY) (Linaclotide [Linzess] 72 MCG Capsule) PO SCH (10:00)
[2023-10-07] MEDS ORDERED: ENOXAPARIN NA (PORCINE) 40 MG/0.4 ML DISP.SYRIN SQ SCH (10:00)
[2023-10-07] MEDS: ASPIRIN 81 MG CHEWABLE TABLETS PO SCH (10:32)
[2023-10-07] MEDS: LOSARTAN POTASSIUM 50 MG TABLET PO SCH (10:32)
[2023-10-07] MEDS: NICOTINE 7 MG/24 HOURS TOPICAL PATCH TD SCH (10:33)
[2023-10-07] MEDS: amLODIPine BESYLATE 5 MG TABLET (FP) PO SCH (10:33)
[2023-10-07] MEDS: CLOPIDOGREL BISULFATE 75 MG TABLET (FP) PO SCH (10:33)
[2023-10-07] MEDS: THIAMINE 100 MG TABLET PO SCH (10:33)
[2023-10-07] MEDS: RIFAXIMIN 550 MG TABLET PO SCH (10:33)
[2023-10-07] MEDS: HYDROCHLOROTHIAZIDE 12.5 MG CAPSULE (FP) PO SCH (10:33)
[2023-10-07] MEDS: FOLIC ACID 1 MG TABLET (FP) PO SCH (10:33)
[2023-10-07] MEDS: PANTOPRAZOLE 40 MG TABLET PO SCH (10:33)
[2023-10-07] MEDS ORDERED: POTASSIUM CHLORIDE ORAL LIQUID 20 MEQ/15 ML ONE (13:12)
[2023-10-07] MEDS: hydrALAZINE HCL 25 MG TABLET (FP) PO SCH (14:01)
[2023-10-07] MEDS ORDERED: hydrALAZINE HCL 25 MG TABLET (FP) ONE (14:14)
[2023-10-07 18:27] VITALS: RESP 18
[2023-10-07] MEDS ORDERED: QUEtiapine FUMARATE 100 MG TABLET (FP) ONE (21:23)
[2023-10-07] MEDS: QUEtiapine FUMARATE 300 MG TABLET PO SCH (21:26)
[2023-10-07] MEDS: ENOXAPARIN NA (PORCINE) 100 MG/1 ML DISP.SYRIN SQ SCH (21:27)
[2023-10-07] MEDS: ATORVASTATIN CA 20 MG TABLET (FP) PO SCH (21:27)
[2023-10-07 22:42] VITALS: BP 166/91; PULSE 98
[2023-10-08] MEDS ORDERED: chlordiazePOXIDE HCL 25 MG CAPSULE PO SCH (05:00)
[2023-10-09] MEDS ORDERED: chlordiazePOXIDE HCL 10 MG CAPSULE PO PRN
[2023-10-09] MEDS ORDERED: chlordiazePOXIDE HCL 10 MG CAPSULE PO SCH (05:00)
[2023-10-10] MEDS ORDERED: chlordiazePOXIDE HCL 10 MG CAPSULE PO SCH (05:00)
[2023-10-11] MEDS ORDERED: chlordiazePOXIDE HCL 10 MG CAPSULE PO ONE (05:00)
== END 2023-10-07 21:50 | disposition home or self-care (01) ==
LOC: JER 02:13 → JERBED 04:13 → INTOOBSV 04:13 → J4S 19:27
PROVIDERS: ADMIT Internal Medicine; ATTEND Internal Medicine
PROC: 3E023GC Introduction of Other Therapeutic Substance into Muscle, Percutaneous Approach (ICD-10-PCS; principal; 2023-10-07)
DX: F10.230 Alcohol dependence with withdrawal, uncomplicated (principal); I25.10 Atherosclerotic heart disease of native coronary artery without angina pectoris; E78.5 Hyperlipidemia, unspecified; I11.9 Hypertensive heart disease without heart failure; N18.4 Chronic kidney disease, stage 4 (severe); K70.30 Alcoholic cirrhosis of liver without ascites; E11.9 Type 2 diabetes mellitus without complications; B19.20 Unspecified viral hepatitis C without hepatic coma; D64.9 Anemia, unspecified; E66.9 Obesity, unspecified; K44.9 Diaphragmatic hernia without obstruction or gangrene; K27.9 Peptic ulcer, site unspecified, unspecified as acute or chronic, without hemorrhage or perforation; F32.A Depression, unspecified; N40.0 Benign prostatic hyperplasia without lower urinary tract symptoms; I25.2 Old myocardial infarction; R09.89 Other specified symptoms and signs involving the circulatory and respiratory systems; F17.200 Nicotine dependence, unspecified, uncomplicated
CPT/HCPCS: 36415; 71045-TC-FY; 71275-TC; 80053; 80307; 81240; 81241; 82962; 84484; 85025; 85300; 93005; 93010; 93970-TC; 96372; 99285-25; G0378; Q9967

== ENCOUNTER 2023-10-13 14:41 | Inpatient (IN) | payer OTHER ==
[2023-10-13 16:27] LABS: BASO % 1.4 % (0-2.0); EOS % 1.6 % (0-4.5); HEMATOCRIT 32.4 % (35.4-49); HEMOGLOBIN 10.6 GM/dL (11.7-16.9); LYMPH % 32.4 % (8-40); MCH 28.1 pg (25.7-33.7); MCHC 32.7 g/dl (32.0-35.9); MEAN CELL VOLUME 85.7 fl (80-96); MEAN PLT VOLUME 6.5 fl (7.5-11.1); MONO % 9.7 % (3.8-10.2); NEUT % 54.9 % (42.8-82.8); PLATELET COUNT 306 10^3/uL (134-434); RBC 3.78 M/mm3 (4.00-5.60); RDW 26.4 % (11.9-15.9); WHITE BLOOD COUNT 4.5 K/mm3 (4.0-10.0)
[2023-10-13 16:34] LABS: INR 0.96 (0.83-1.09)
[2023-10-13 16:36] LABS: ACTIVATED PTT 28.7 SECONDS (25.2-36.5)
[2023-10-13 17:03] LABS: ANISOCYTOSIS 3+; MACROCYTOSIS 0; OVALOCYTE 1+; TARGET CELLS 1+; TEAR DROP CELLS 1+
[2023-10-13 17:09] LABS: POTASSIUM 3.6 mmol/L (3.5-5.1)
[2023-10-13 17:11] LABS: ALBUMIN 3.6 g/dl (3.4-5.0); BLOOD UREA NITROGEN 13.1 mg/dL (7-18); CALCIUM 9.2 mg/dL (8.5-10.1)
[2023-10-13 17:15] LABS: CREATININE 1.2 mg/dL (0.55-1.3)
[2023-10-13 17:16] LABS: BILIRUBIN,TOTAL 0.4 mg/dL (0.2-1); TOT PROT 7.9 g/dl (6.4-8.2)
[2023-10-13 17:29] LABS: VENOUS BASE EXCESS -2.4 mmol/L (-2-2); VENOUS O2 SATURATION 71.4 % (70-80); VENOUS PCO2 45.2 mmHg (38-52); VENOUS PH 7.335 (7.310-7.410)
[2023-10-13] MEDS ORDERED: HEPARIN INFUSION - 25,000 UNITS/500 ML INFUS.BAG IVPB ONE (18:02)
[2023-10-13] MEDS ORDERED: HEPARIN NA (PORCINE) 5,000 UNITS/ML 1ML VIAL IVPUSH PRN (18:20)
[2023-10-13] MEDS ORDERED: HEPARIN INFUSION - 500 ML IVPB SCH (18:30)
[2023-10-13] MEDS ORDERED: HEPARIN - 25,000 UNIT in SODIUM CHLORIDE 495 ML IV SCH (18:30)
[2023-10-13] MEDS: HEPARIN INFUSION - 25,000 UNITS/500 ML INFUS.BAG IVPB SCH (18:55)
[2023-10-13] MEDS ORDERED: DOCUSATE SODIUM 100 MG CAPSULE (FP) PO PRN (21:26)
[2023-10-13] MEDS: INSULIN ASPART SLIDING SCALE (NOVOLOG) 1 VIAL SQ SCH (22:29)
[2023-10-13] MEDS: HEPARIN - 25,000 UNIT in SODIUM CHLORIDE 495 ML IV SCH (23:01)
[2023-10-14 01:56] VITALS: BMI 33.3
[2023-10-14] MEDS: ACETAMINOPHEN 1000 MG/100 ML BAG IVPB PRN (03:09)
[2023-10-14 06:24] VITALS: RESP 18
[2023-10-14] MEDS: HEPARIN NA (PORCINE) 5,000 UNITS/ML 1ML VIAL IVPUSH PRN (06:32)
[2023-10-14] MEDS ORDERED: methaDONE HCL 40 MG DISPERSABLE TABLET PO SCH (07:00)
[2023-10-14] MEDS ORDERED: chlordiazePOXIDE HCL 25 MG CAPSULE PO PRN (07:00)
[2023-10-14 07:48] LABS: BASO % 0.9 % (0-2.0); HEMATOCRIT 33.7 % (35.4-49); LYMPH % 31.7 % (8-40); MCH 27.8 pg (25.7-33.7); MCHC 32.6 g/dl (32.0-35.9); MEAN CELL VOLUME 85.4 fl (80-96); MEAN PLT VOLUME 7.2 fl (7.5-11.1); MONO % 11.2 % (3.8-10.2); NEUT % 53.2 % (42.8-82.8); PLATELET COUNT 341 10^3/uL (134-434); RBC 3.95 M/mm3 (4.00-5.60); RDW 25.4 % (11.9-15.9); WHITE BLOOD COUNT 4.7 K/mm3 (4.0-10.0)
[2023-10-14] MEDS: chlordiazePOXIDE HCL 25 MG CAPSULE PO ONE (08:31)
[2023-10-14] MEDS: TAMSULOSIN HCL 0.4 MG CAP PO SCH (08:31)
[2023-10-14] MEDS: FOLIC ACID 1 MG TABLET (FP) PO SCH (09:24)
[2023-10-14] MEDS: MULTIVITAMINS (DAILY MVI) TABLET (FP) PO SCH (09:25)
[2023-10-14] MEDS: THIAMINE 100 MG TABLET PO SCH (09:25)
[2023-10-14] MEDS: HYDROCHLOROTHIAZIDE 12.5 MG CAPSULE (FP) PO SCH (09:25)
[2023-10-14] MEDS: LOSARTAN POTASSIUM 50 MG TABLET PO SCH (09:26)
[2023-10-14] MEDS: PANTOPRAZOLE 40 MG TABLET PO SCH (09:26)
[2023-10-14] MEDS ORDERED: PATIENT'S OWN MEDICATION (NON-FORMULARY) (Losartan/Hydrochlorothiazide [Losartan-Hctz 100- PO SCH (10:00)
[2023-10-14] MEDS: chlordiazePOXIDE HCL 25 MG CAPSULE PO SCH (11:55)
[2023-10-14] MEDS: APIXABAN 5 MG TABLET PO SCH (11:55)
[2023-10-14] MEDS: methaDONE HCL 10 MG TABLET PO SCH (12:31)
[2023-10-14 18:11] VITALS: BP 142/83; PULSE 99; TEMP 98.4
[2023-10-14] MEDS ORDERED: ACETAMINOPHEN 325 MG TABLET (FP) PO PRN (21:26)
[2023-10-14] MEDS ORDERED: ATORVASTATIN CA 80 MG TABLET (FP) PO SCH (22:00)
[2023-10-14] MEDS ORDERED: QUEtiapine FUMARATE 100 MG TABLET (FP) PO SCH (22:00)
[2023-10-16] MEDS ORDERED: chlordiazePOXIDE HCL 25 MG CAPSULE PO SCH (05:00)
[2023-10-17] MEDS ORDERED: chlordiazePOXIDE HCL 10 MG CAPSULE PO PRN
[2023-10-17] MEDS ORDERED: chlordiazePOXIDE HCL 10 MG CAPSULE PO SCH (05:00)
[2023-10-18] MEDS ORDERED: chlordiazePOXIDE HCL 10 MG CAPSULE PO SCH (05:00)
[2023-10-19] MEDS ORDERED: chlordiazePOXIDE HCL 10 MG CAPSULE PO ONE (05:00)
== END 2023-10-14 18:40 | disposition left against medical advice (07) | DRG 176 ==
LOC: JER 14:41 → JERBED 17:32 → J4W 10-14 00:54
PROVIDERS: ADMIT Internal Medicine; ATTEND Internal Medicine
DX: I26.99 Other pulmonary embolism without acute cor pulmonale (principal); I13.0 Hypertensive heart and chronic kidney disease with heart failure and stage 1 through stage 4 chronic kidney disease, or unspecified chronic kidney disease; N18.4 Chronic kidney disease, stage 4 (severe); F10.239 Alcohol dependence with withdrawal, unspecified; I50.32 Chronic diastolic (congestive) heart failure; E11.22 Type 2 diabetes mellitus with diabetic chronic kidney disease; E78.5 Hyperlipidemia, unspecified; K21.9 Gastro-esophageal reflux disease without esophagitis; K70.30 Alcoholic cirrhosis of liver without ascites; I25.10 Atherosclerotic heart disease of native coronary artery without angina pectoris; E11.9 Type 2 diabetes mellitus without complications; K44.9 Diaphragmatic hernia without obstruction or gangrene; D50.9 Iron deficiency anemia, unspecified; F11.10 Opioid abuse, uncomplicated; F32.A Depression, unspecified; E66.9 Obesity, unspecified; Z68.33 Body mass index [BMI] 33.0-33.9, adult; N40.0 Benign prostatic hyperplasia without lower urinary tract symptoms; Z87.11 Personal history of peptic ulcer disease; Z86.73 Personal history of transient ischemic attack (TIA), and cerebral infarction without residual deficits
CPT/HCPCS: 36415; 71045-TC-FY; 80053; 82803; 82962; 84484; 85025; 85027; 85610; 85730; 93005; 93010; 99285-25; E0186; J0131; J1644

== ENCOUNTER 2023-12-26 13:20 | Inpatient (IN) | payer OTHER ==
[2023-12-26 13:46] VITALS: BMI 34.8
[2023-12-26] MEDS ORDERED: MAGNESIUM HYDROX 2400MG/30ML ORAL SUSPENSION 30 ML CUP PO PRN (17:01)
[2023-12-26] MEDS ORDERED: NALOXONE (NYS OPIOID OVERDOSE PROGRAM) 4 MG/0.1 ML SPRAY NS PRN (17:01)
[2023-12-26] MEDS ORDERED: BENZONATATE 200 MG CAPSULE PO PRN (17:01)
[2023-12-26] MEDS ORDERED: BENZOCAINE/MENTHOL (CHLORASEPTIC ) LOZENGE MM PRN (17:01)
[2023-12-26] MEDS ORDERED: POLYETHYLENE GLYCOL (HEALTHYLAX) 3350 17 GM PACKET PO PRN (17:01)
[2023-12-26] MEDS ORDERED: guaiFENesin 600 MG TABLET.ER (FP) PO PRN (17:01)
[2023-12-26] MEDS ORDERED: MAG HYDROX/AL HYDROX/SIMETH 30 ML UNIT-DOSE CUP PO PRN (17:01)
[2023-12-26] MEDS ORDERED: ONDANSETRON *ODT* 4 MG TABLET ONE (17:31)
[2023-12-26] MEDS ORDERED: chlordiazePOXIDE HCL 25 MG CAPSULE ONE (17:31)
[2023-12-26] MEDS ORDERED: amLODIPine BESYLATE 5 MG TABLET (FP) ONE (17:31)
[2023-12-26] MEDS ORDERED: ASPIRIN 81 MG CHEWABLE TABLETS ONE (17:32)
[2023-12-26] MEDS: amLODIPine BESYLATE 5 MG TABLET (FP) PO SCH (17:37)
[2023-12-26] MEDS: ONDANSETRON *ODT* 4 MG TABLET SL PRN (17:37)
[2023-12-26] MEDS: chlordiazePOXIDE HCL 25 MG CAPSULE PO SCH (17:38)
[2023-12-26] MEDS: ASPIRIN COATED 81 MG TABLET.EC PO SCH (17:38)
[2023-12-26] MEDS: THIAMINE 100 MG TABLET PO SCH (23:07)
[2023-12-26] MEDS: PANTOPRAZOLE 40 MG TABLET PO SCH (23:07)
[2023-12-26] MEDS: ATORVASTATIN CA 20 MG TABLET (FP) PO SCH (23:07)
[2023-12-26] MEDS: hydrALAZINE HCL 25 MG TABLET (FP) PO SCH (23:07)
[2023-12-27] MEDS: chlordiazePOXIDE HCL 25 MG CAPSULE PO PRN (01:55)
[2023-12-27] MEDS: ACETAMINOPHEN 325 MG TABLET (FP) PO PRN (01:55)
[2023-12-27] MEDS: sitaGLIPtin PHOSPHATE 50 MG TABLET PO SCH (06:35)
[2023-12-27] MEDS: metFORMIN HCL 500 MG TABLET (FP) PO SCH (06:35)
[2023-12-27] MEDS: TAMSULOSIN HCL 0.4 MG CAP PO SCH (08:54)
[2023-12-27] MEDS ORDERED: CLOPIDOGREL BISULFATE 75 MG TABLET (FP) PO SCH (10:00)
[2023-12-27] MEDS ORDERED: PATIENT'S OWN MEDICATION (NON-FORMULARY) (Losartan/Hydrochlorothiazide [Losartan-Hctz 100- PO SCH (10:00)
[2023-12-27] MEDS ORDERED: PATIENT'S OWN MEDICATION (NON-FORMULARY) (Sitagliptin Phos/Metformin Hcl [Janumet 50-1,000 PO SCH (10:00)
[2023-12-27] MEDS: methaDONE HCL 10 MG TABLET PO ONE (10:25)
[2023-12-27] MEDS: HYDROCHLOROTHIAZIDE 12.5 MG CAPSULE (FP) PO SCH (10:26)
[2023-12-27] MEDS: LOSARTAN POTASSIUM 50 MG TABLET PO SCH (10:26)
[2023-12-27] MEDS: PRENATAL VITAMINS W/ FOLIC ACID TABLET (FP) PO SCH (10:27)
[2023-12-27] MEDS: MELATONIN 5 MG TABLETS PO PRN (22:39)
[2023-12-27] MEDS: QUEtiapine FUMARATE 100 MG TABLET (FP) PO SCH (22:39)
[2023-12-28] MEDS: chlordiazePOXIDE HCL 25 MG CAPSULE PO SCH (06:00)
[2023-12-28] MEDS: methaDONE HCL 40 MG DISPERSABLE TABLET PO ONE (06:02)
[2023-12-29] MEDS ORDERED: chlordiazePOXIDE HCL 10 MG CAPSULE PO PRN
[2023-12-29] MEDS: chlordiazePOXIDE HCL 10 MG CAPSULE PO SCH (05:55)
[2023-12-29] MEDS ORDERED: methaDONE HCL 10 MG TABLET PO SCH (06:00)
[2023-12-29] MEDS: methaDONE 40 MG, methaDONE 10 MG PO SCH (06:08)
[2023-12-30] MEDS: chlordiazePOXIDE HCL 10 MG CAPSULE PO SCH (05:58)
[2023-12-30] MEDS: CLOPIDOGREL BISULFATE 75 MG TABLET (FP) PO ONE (14:24)
[2023-12-31] MEDS: chlordiazePOXIDE HCL 10 MG CAPSULE PO ONE (05:55)
[2023-12-31 08:53] VITALS: BP 124/69; PULSE 100; RESP 17; TEMP 97.6
[2023-12-31] MEDS: NALOXONE (NYS OPIOID OVERDOSE PROGRAM) 4 MG/0.1 ML SPRAY NS SCH (09:47)
[2023-12-31] MEDS: CLOPIDOGREL BISULFATE 75 MG TABLET (FP) PO SCH (09:48)
== END 2023-12-31 11:11 | disposition home or self-care (01) | DRG 897 ==
LOC: YASAS 13:20 → Y6N 17:00
PROVIDERS: ADMIT Allergy & Immunology; ATTEND Surgery
PROC: HZ2ZZZZ Detoxification Services for Substance Abuse Treatment (ICD-10-PCS; principal; 2023-12-26)
DX: F11.23 Opioid dependence with withdrawal (principal); F10.230 Alcohol dependence with withdrawal, uncomplicated; F17.210 Nicotine dependence, cigarettes, uncomplicated; F10.282 Alcohol dependence with alcohol-induced sleep disorder; F10.24 Alcohol dependence with alcohol-induced mood disorder; F41.9 Anxiety disorder, unspecified; D50.9 Iron deficiency anemia, unspecified; I25.10 Atherosclerotic heart disease of native coronary artery without angina pectoris; I11.0 Hypertensive heart disease with heart failure; I50.9 Heart failure, unspecified; E11.9 Type 2 diabetes mellitus without complications; Z79.84 Long term (current) use of oral hypoglycemic drugs; K70.30 Alcoholic cirrhosis of liver without ascites; K21.9 Gastro-esophageal reflux disease without esophagitis; N40.0 Benign prostatic hyperplasia without lower urinary tract symptoms
CPT/HCPCS: 80305; 80307; 82962; 93005; 93010; Q0162

== ENCOUNTER 2024-01-05 19:40 | Observation (INO) | payer OTHER ==
[2024-01-05 20:02] VITALS: BMI 30.2
[2024-01-05 21:46] LABS: BASO % 0.9 % (0-2.0); EOS % 3.9 % (0-4.5); HEMATOCRIT 31.1 % (35.4-49); HEMOGLOBIN 10.4 GM/dL (11.7-16.9); MCH 30.4 pg (25.7-33.7); MCHC 33.6 g/dl (32.0-35.9); MEAN CELL VOLUME 90.6 fl (80-96); MEAN PLT VOLUME 7.5 fl (7.5-11.1); MONO % 14.1 % (3.8-10.2); NEUT % 52.1 % (42.8-82.8); PLATELET COUNT 297 10^3/uL (134-434); RBC 3.43 M/mm3 (4.00-5.60); RDW 18.3 % (11.9-15.9); WHITE BLOOD COUNT 6.1 K/mm3 (4.0-10.0)
[2024-01-05 21:53] LABS: INR 1.06 (0.83-1.09)
[2024-01-05 21:55] LABS: ACTIVATED PTT 32.2 SECONDS (25.2-36.5)
[2024-01-05 21:56] LABS: POTASSIUM 4.1 mmol/L (3.5-5.1)
[2024-01-05 21:57] LABS: BLOOD UREA NITROGEN 34.5 mg/dL (7-18); CALCIUM 8.9 mg/dL (8.5-10.1)
[2024-01-05 21:59] LABS: ALBUMIN 3.5 g/dl (3.4-5.0)
[2024-01-05 22:02] LABS: CREATININE 2.9 mg/dL (0.55-1.3)
[2024-01-05 22:03] LABS: BILIRUBIN,TOTAL 0.4 mg/dL (0.2-1); TOT PROT 7.6 g/dl (6.4-8.2)
[2024-01-05 22:06] LABS: N-TERMINAL BNP 100.2 pg/ml (5-125)
[2024-01-05] MEDS: SODIUM CHLORIDE 0.9% 500 ML INFUS.BAG IV ONE (22:50)
[2024-01-06] MEDS: SODIUM CHLORIDE 1,000 ML IV SCH (02:32)
[2024-01-06] MEDS ORDERED: ALBUTEROL SO4 0.083% IH SOL 2.5 MG/3 ML VIAL.NEB. NEB PRN (08:39)
[2024-01-06] MEDS ORDERED: TAMSULOSIN HCL 0.4 MG CAP ONE (09:00)
[2024-01-06] MEDS ORDERED: ASPIRIN 81 MG CHEWABLE TABLETS ONE (09:00)
[2024-01-06] MEDS ORDERED: CLOPIDOGREL BISULFATE 75 MG TABLET (FP) ONE (09:00)
[2024-01-06] MEDS ORDERED: amLODIPine BESYLATE 5 MG TABLET (FP) ONE (09:00)
[2024-01-06] MEDS ORDERED: HYDROCHLOROTHIAZIDE 25 MG TABLET (FP) ONE (09:00)
[2024-01-06 09:04] LABS: PH,URINE 5.5 (5.0-8.0); URINE APPEARANCE CLEAR; URINE BILIRUBIN NEGATIVE (NEGATIVE); URINE COLOR YELLOW; URINE GLUCOSE (UA) NEGATIVE (NEGATIVE); URINE KETONE TRACE (NEGATIVE); URINE LEUK ESTERASE NEGATIVE (NEGATIVE); URINE NITRITE NEGATIVE (NEGATIVE); URINE PROTEIN NEGATIVE (NEGATIVE)
[2024-01-06 09:18] LABS: COCAINE, UR NEGATIVE (NEGATIVE); OPIATES, URI NEGATIVE (NEGATIVE); PHENCYCLIDINE,URINE NEGATIVE (NEGATIVE); URINE AMPHETAMINES NEGATIVE (NEGATIVE); URINE BARBITURATES NEGATIVE (NEGATIVE)
[2024-01-06 09:33] LABS: METHADONE, UR POSITIVE (NEGATIVE); URINE BENZODIAZEPINES POSITIVE (NEGATIVE)
[2024-01-06] MEDS: TAMSULOSIN HCL 0.4 MG CAP PO SCH (09:42)
[2024-01-06] MEDS: CLOPIDOGREL BISULFATE 75 MG TABLET (FP) PO SCH (09:43)
[2024-01-06] MEDS: HYDROCHLOROTHIAZIDE 12.5 MG CAPSULE (FP) PO SCH (09:43)
[2024-01-06] MEDS: amLODIPine BESYLATE 5 MG TABLET (FP) PO SCH (09:43)
[2024-01-06] MEDS: ASPIRIN 81 MG CHEWABLE TABLETS PO SCH (09:43)
[2024-01-06 13:25] VITALS: RESP 18
[2024-01-06] MEDS ORDERED: hydrALAZINE HCL 25 MG TABLET (FP) ONE ×2 (14:00→22:03)
[2024-01-06] MEDS: hydrALAZINE HCL 25 MG TABLET (FP) PO SCH (14:01)
[2024-01-06 14:55] LABS: BASO % 0.8 % (0-2.0); EOS % 5.8 % (0-4.5); HEMATOCRIT 34.6 % (35.4-49); HEMOGLOBIN 11.5 GM/dL (11.7-16.9); LYMPH % 28.1 % (8-40); MCH 30.4 pg (25.7-33.7); MCHC 33.4 g/dl (32.0-35.9); MEAN PLT VOLUME 7.7 fl (7.5-11.1); MONO % 8.2 % (3.8-10.2); NEUT % 57.1 % (42.8-82.8); PLATELET COUNT 304 10^3/uL (134-434); RDW 18.4 % (11.9-15.9); WHITE BLOOD COUNT 3.6 K/mm3 (4.0-10.0)
[2024-01-06 15:40] LABS: CHLORIDE 104 mmol/L (98-107); SODIUM 138 mmol/L (136-145)
[2024-01-06 15:41] LABS: ANION GAP 6 mmol/L (4-13); CALCIUM 8.7 mg/dL (8.5-10.1); CO2 28 mmol/L (21-32); GLUCOSE,RANDOM 185 mg/dL (74-106)
[2024-01-06 15:44] LABS: CREATININE 1.8 mg/dL (0.55-1.3)
[2024-01-06] MEDS ORDERED: APIXABAN 5 MG TABLET ONE (22:03)
[2024-01-06] MEDS ORDERED: ATORVASTATIN CA 80 MG TABLET (FP) ONE (22:03)
[2024-01-06] MEDS: ATORVASTATIN CA 80 MG TABLET (FP) PO SCH (22:58)
[2024-01-06] MEDS: APIXABAN 5 MG TABLET PO SCH (22:58)
[2024-01-07 05:49] LABS: PH,URINE 5.5 (5.0-8.0); URINE APPEARANCE CLEAR; URINE BILIRUBIN NEGATIVE (NEGATIVE); URINE COLOR YELLOW; URINE GLUCOSE (UA) NEGATIVE (NEGATIVE); URINE KETONE NEGATIVE (NEGATIVE); URINE LEUK ESTERASE NEGATIVE (NEGATIVE); URINE NITRITE NEGATIVE (NEGATIVE); URINE PROTEIN NEGATIVE (NEGATIVE)
[2024-01-07 08:23] LABS: BASO % 0.8 % (0-2.0); EOS % 6.2 % (0-4.5); HEMATOCRIT 34.3 % (35.4-49); HEMOGLOBIN 11.8 GM/dL (11.7-16.9); LYMPH % 29.8 % (8-40); MCH 30.9 pg (25.7-33.7); MCHC 34.3 g/dl (32.0-35.9); MEAN CELL VOLUME 89.9 fl (80-96); MEAN PLT VOLUME 7.2 fl (7.5-11.1); MONO % 9.3 % (3.8-10.2); NEUT % 53.9 % (42.8-82.8); PLATELET COUNT 326 10^3/uL (134-434); RBC 3.81 M/mm3 (4.00-5.60); RDW 17.5 % (11.9-15.9); WHITE BLOOD COUNT 4.3 K/mm3 (4.0-10.0)
[2024-01-07 08:44] LABS: POTASSIUM 4.3 mmol/L (3.5-5.1)
[2024-01-07 08:46] LABS: CALCIUM 9.5 mg/dL (8.5-10.1)
[2024-01-07 08:47] LABS: ALBUMIN 3.8 g/dl (3.4-5.0); BLOOD UREA NITROGEN 22.9 mg/dL (7-18)
[2024-01-07 08:50] LABS: CREATININE 1.4 mg/dL (0.55-1.3)
[2024-01-07 08:51] LABS: BILIRUBIN,TOTAL 0.4 mg/dL (0.2-1); TOT PROT 8.3 g/dl (6.4-8.2)
[2024-01-07] MEDS: methaDONE HCL 40 MG DISPERSABLE TABLET PO SCH (10:30)
[2024-01-07 14:45] VITALS: BP 129/66; PULSE 81; TEMP 98.4
[2024-01-07] MEDS ORDERED: QUEtiapine FUMARATE 300 MG TABLET PO SCH (22:00)
== END 2024-01-07 14:47 | disposition home or self-care (01) ==
LOC: JER 19:40 → JERBED 01-06 00:09 → J4W 01-06 23:58
PROVIDERS: ADMIT Internal Medicine; ATTEND Internal Medicine
PROC: 3E0337Z Introduction of Electrolytic and Water Balance Substance into Peripheral Vein, Percutaneous Approach (ICD-10-PCS; principal; 2024-01-06)
DX: N17.9 Acute kidney failure, unspecified (principal); N18.9 Chronic kidney disease, unspecified; G93.41 Metabolic encephalopathy; Z86.73 Personal history of transient ischemic attack (TIA), and cerebral infarction without residual deficits; F11.90 Opioid use, unspecified, uncomplicated; I25.2 Old myocardial infarction; Z95.5 Presence of coronary angioplasty implant and graft; I11.0 Hypertensive heart disease with heart failure; K74.60 Unspecified cirrhosis of liver; I26.99 Other pulmonary embolism without acute cor pulmonale
CPT/HCPCS: 0241U-QW; 36415; 70450-TC; 71045-TC-FY; 76775-TC; 80048; 80053; 80307; 81003; 82140; 82550; 82553; 82962; 83036; 83880; 84484; 85025; 85610; 85730; 86850; 86900; 86901; 87086; 93005; 93010; 96360; 97116-GP; 97161-GP; 99285-25; G0378

== ENCOUNTER 2024-02-14 20:01 | Observation (INO) | payer OTHER ==
[2024-02-14 21:11] LABS: BASO % 2.4 % (0-2.0); HEMOGLOBIN 9.9 GM/dL (11.7-16.9); LYMPH % 34.7 % (8-40); MCH 27.3 pg (25.7-33.7); MEAN CELL VOLUME 85.3 fl (80-96); MEAN PLT VOLUME 6.5 fl (7.5-11.1); MONO % 11.1 % (3.8-10.2); NEUT % 50.8 % (42.8-82.8); PLATELET COUNT 285 10^3/uL (134-434); RBC 3.63 M/mm3 (4.00-5.60); RDW 18.1 % (11.9-15.9); WHITE BLOOD COUNT 4.3 K/mm3 (4.0-10.0)
[2024-02-14 21:44] LABS: POTASSIUM 3.8 mmol/L (3.5-5.1)
[2024-02-14 21:46] LABS: ALBUMIN 3.6 g/dl (3.4-5.0); CALCIUM 8.5 mg/dL (8.5-10.1); MAGNESIUM 1.9 mg/dL (1.8-2.4)
[2024-02-14 21:50] LABS: CREATININE 1.2 mg/dL (0.55-1.3)
[2024-02-14 21:51] LABS: BILIRUBIN,TOTAL 0.4 mg/dL (0.2-1); TOT PROT 7.9 g/dl (6.4-8.2)
[2024-02-15] MEDS ORDERED: THIAMINE HCL 200 MG/2 ML VIAL ONE (02:13)
[2024-02-15] MEDS: THIAMINE HCL 200 MG/2 ML VIAL IVPB ONE (02:24)
[2024-02-15] MEDS ORDERED: QUEtiapine FUMARATE 100 MG TABLET (FP) ONE ×2 (04:11→04:17)
[2024-02-15] MEDS: QUEtiapine FUMARATE 300 MG TABLET PO SCH (04:12)
[2024-02-15] MEDS: hydrALAZINE HCL 25 MG TABLET (FP) PO SCH (06:21)
[2024-02-15 06:57] VITALS: BMI 34.8
[2024-02-15 08:56] LABS: BASO % 0.9 % (0-2.0); EOS % 0.4 % (0-4.5); HEMATOCRIT 29.4 % (35.4-49); HEMOGLOBIN 9.3 GM/dL (11.7-16.9); LYMPH % 14.3 % (8-40); MCH 26.9 pg (25.7-33.7); MCHC 31.6 g/dl (32.0-35.9); MEAN CELL VOLUME 85.1 fl (80-96); MEAN PLT VOLUME 6.7 fl (7.5-11.1); MONO % 8.6 % (3.8-10.2); NEUT % 75.8 % (42.8-82.8); PLATELET COUNT 242 10^3/uL (134-434); RBC 3.46 M/mm3 (4.00-5.60); RDW 18.1 % (11.9-15.9); WHITE BLOOD COUNT 5.1 K/mm3 (4.0-10.0)
[2024-02-15 09:18] LABS: CHLORIDE 100 mmol/L (98-107); POTASSIUM 3.7 mmol/L (3.5-5.1); SODIUM 137 mmol/L (136-145)
[2024-02-15 09:22] LABS: CALCIUM 8.8 mg/dL (8.5-10.1)
[2024-02-15 09:23] LABS: ALBUMIN 3.3 g/dl (3.4-5.0); ANION GAP 8 mmol/L (4-13); BLOOD UREA NITROGEN 16.4 mg/dL (7-18); CO2 29 mmol/L (21-32); GLUCOSE,RANDOM 126 mg/dL (74-106); MAGNESIUM 1.6 mg/dL (1.8-2.4)
[2024-02-15 09:26] LABS: CREATININE 1.1 mg/dL (0.55-1.3); SGOT/AST 37 U/L (15-37); SGPT/ALT 20 U/L (13-61)
[2024-02-15 09:28] LABS: TOT PROT 7.4 g/dl (6.4-8.2)
[2024-02-15 09:29] LABS: ALK PHOS 116 U/L (45-117)
[2024-02-15] MEDS: HYDROCHLOROTHIAZIDE 12.5 MG CAPSULE (FP) PO SCH (09:50)
[2024-02-15] MEDS: CLOPIDOGREL BISULFATE 75 MG TABLET (FP) PO SCH (09:50)
[2024-02-15] MEDS: ASPIRIN 81 MG CHEWABLE TABLETS PO SCH (09:51)
[2024-02-15] MEDS: MULTIVITAMINS (DAILY MVI) TABLET (FP) PO SCH (09:51)
[2024-02-15] MEDS: TAMSULOSIN HCL 0.4 MG CAP PO SCH (09:51)
[2024-02-15] MEDS: APIXABAN 5 MG TABLET PO SCH (09:51)
[2024-02-15] MEDS: amLODIPine BESYLATE 5 MG TABLET (FP) PO SCH (09:51)
[2024-02-15] MEDS ORDERED: methaDONE HCL 40 MG DISPERSABLE TABLET PO SCH (11:45)
[2024-02-15] MEDS: NICOTINE 14 MG/24 HOURS TOPICAL PATCH TD SCH (16:31)
[2024-02-15 17:38] LABS: ARTERIAL BLOOD GAS BASE EXCESS 6.5 mmol/L (-2-2); ARTERIAL BLOOD GAS PO2 101.5 mmHg (80-100); ARTERIAL BLOOD GAS pH 7.492 (7.350-7.450)
[2024-02-15 17:39] LABS: ALLENS TEST POSITIVE
[2024-02-15 18:28] LABS: EPI CELLS 3 /uL (0-25.1); HYALINE CASTS 0 /uL (0-3.1); URINE APPEARANCE CLEAR; URINE BACTERIA 0 /uL (0-1359); URINE BILIRUBIN NEGATIVE (NEGATIVE); URINE COLOR YELLOW; URINE GLUCOSE (UA) NEGATIVE (NEGATIVE); URINE KETONE TRACE (NEGATIVE); URINE LEUK ESTERASE NEGATIVE (NEGATIVE); URINE NITRITE NEGATIVE (NEGATIVE); URINE PROTEIN 1+ (NEGATIVE); URINE RBC 23 /uL (0-23.9); URINE WBC 4 /uL (0-25.8)
[2024-02-15 18:34] LABS: COCAINE, UR NEGATIVE (NEGATIVE); OPIATES, URI NEGATIVE (NEGATIVE); URINE AMPHETAMINES NEGATIVE (NEGATIVE); URINE BARBITURATES NEGATIVE (NEGATIVE)
[2024-02-15 18:35] LABS: PHENCYCLIDINE,URINE NEGATIVE (NEGATIVE)
[2024-02-15 19:01] LABS: METHADONE, UR POSITIVE (NEGATIVE); URINE BENZODIAZEPINES POSITIVE (NEGATIVE)
[2024-02-15] MEDS: ATORVASTATIN CA 80 MG TABLET (FP) PO SCH (21:32)
[2024-02-15] MEDS ORDERED: QUEtiapine FUMARATE 100 MG TABLET (FP) PO SCH (22:00)
[2024-02-15] MEDS: LACTULOSE 20 GM/30 ML UDC (FOR ORAL USE ONLY) PO ONE (23:39)
[2024-02-16 09:30] LABS: BASO % 1.5 % (0-2.0); EOS % 4.4 % (0-4.5); HEMATOCRIT 29.9 % (35.4-49); HEMOGLOBIN 9.8 GM/dL (11.7-16.9); LYMPH % 32.3 % (8-40); MCH 27.8 pg (25.7-33.7); MCHC 32.9 g/dl (32.0-35.9); MEAN CELL VOLUME 84.5 fl (80-96); MEAN PLT VOLUME 6.9 fl (7.5-11.1); MONO % 10.3 % (3.8-10.2); NEUT % 51.5 % (42.8-82.8); PLATELET COUNT 244 10^3/uL (134-434); RBC 3.54 M/mm3 (4.00-5.60); RDW 18.3 % (11.9-15.9); WHITE BLOOD COUNT 4.4 K/mm3 (4.0-10.0)
[2024-02-16] MEDS: THIAMINE 100 MG TABLET PO SCH (09:33)
[2024-02-16] MEDS: methaDONE HCL 40 MG DISPERSABLE TABLET PO SCH (09:34)
[2024-02-16 09:51] LABS: POTASSIUM 3.6 mmol/L (3.5-5.1)
[2024-02-16 10:02] LABS: CALCIUM 9.1 mg/dL (8.5-10.1)
[2024-02-16 10:03] LABS: ALBUMIN 3.4 g/dl (3.4-5.0); BLOOD UREA NITROGEN 14.1 mg/dL (7-18)
[2024-02-16 10:05] LABS: CREATININE 1.2 mg/dL (0.55-1.3)
[2024-02-16 10:07] LABS: BILIRUBIN,TOTAL 1.1 mg/dL (0.2-1); TOT PROT 7.4 g/dl (6.4-8.2)
[2024-02-16] MEDS: MELATONIN 5 MG TABLETS PO ONE (21:58)
[2024-02-17] MEDS: diphenhydrAMINE HCL 25 MG CAPSULE (FP) PO ONE ×2 (04:12→21:33)
[2024-02-17] MEDS: methaDONE HCL 40 MG DISPERSABLE TABLET PO SCH ×2 (06:39→17:05)
[2024-02-17 07:42] LABS: POTASSIUM 3.7 mmol/L (3.5-5.1)
[2024-02-17 07:44] LABS: BASO % 0.8 % (0-2.0); CALCIUM 9.2 mg/dL (8.5-10.1); EOS % 4.8 % (0-4.5); HEMATOCRIT 30.4 % (35.4-49); HEMOGLOBIN 9.6 GM/dL (11.7-16.9); MCH 27.3 pg (25.7-33.7); MCHC 31.7 g/dl (32.0-35.9); MEAN CELL VOLUME 86.1 fl (80-96); MEAN PLT VOLUME 7.2 fl (7.5-11.1); MONO % 7.8 % (3.8-10.2); NEUT % 62.6 % (42.8-82.8); PLATELET COUNT 217 10^3/uL (134-434); RBC 3.53 M/mm3 (4.00-5.60); RDW 18.1 % (11.9-15.9); WHITE BLOOD COUNT 5.5 K/mm3 (4.0-10.0)
[2024-02-17 07:45] LABS: ALBUMIN 3.3 g/dl (3.4-5.0); BLOOD UREA NITROGEN 10.5 mg/dL (7-18)
[2024-02-17 07:48] LABS: CREATININE 1.1 mg/dL (0.55-1.3)
[2024-02-17 07:49] LABS: TOT PROT 7.4 g/dl (6.4-8.2)
[2024-02-18] MEDS: ZOLPIDEM TARTRATE 5 MG TABLET PO ONE (01:14)
[2024-02-18] MEDS: methaDONE 40 MG, methaDONE 10 MG PO SCH (05:55)
[2024-02-18] MEDS: chlordiazePOXIDE HCL 10 MG CAPSULE PO SCH ×2 (13:06→14:48)
[2024-02-18] MEDS: ATORVASTATIN CA 80 MG TABLET (FP) PO SCH (21:36)
[2024-02-18] MEDS: hydrALAZINE HCL 25 MG TABLET (FP) PO SCH (21:36)
[2024-02-18] MEDS: APIXABAN 5 MG TABLET PO SCH (21:37)
[2024-02-19] MEDS: methaDONE 40 MG, methaDONE 10 MG PO SCH (07:05)
[2024-02-19 08:45] LABS: BASO % 1.2 % (0-2.0); HEMATOCRIT 33.9 % (35.4-49); HEMOGLOBIN 10.6 GM/dL (11.7-16.9); LYMPH % 20.2 % (8-40); MCH 26.8 pg (25.7-33.7); MCHC 31.3 g/dl (32.0-35.9); MEAN CELL VOLUME 85.5 fl (80-96); MEAN PLT VOLUME 7.4 fl (7.5-11.1); MONO % 11.1 % (3.8-10.2); NEUT % 62.5 % (42.8-82.8); PLATELET COUNT 272 10^3/uL (134-434); RBC 3.96 M/mm3 (4.00-5.60); RDW 18.4 % (11.9-15.9); WHITE BLOOD COUNT 5.4 K/mm3 (4.0-10.0)
[2024-02-19 09:03] LABS: POTASSIUM 3.5 mmol/L (3.5-5.1)
[2024-02-19 09:09] LABS: CALCIUM 9.6 mg/dL (8.5-10.1)
[2024-02-19 09:10] LABS: ALBUMIN 3.7 g/dl (3.4-5.0); CREATININE 1.3 mg/dL (0.55-1.3)
[2024-02-19 09:11] LABS: BILIRUBIN,TOTAL 0.9 mg/dL (0.2-1); TOT PROT 8.1 g/dl (6.4-8.2)
[2024-02-19] MEDS: HYDROCHLOROTHIAZIDE 12.5 MG CAPSULE (FP) PO SCH (10:00)
[2024-02-19] MEDS: TAMSULOSIN HCL 0.4 MG CAP PO SCH (10:00)
[2024-02-19] MEDS: NICOTINE 14 MG/24 HOURS TOPICAL PATCH TD SCH (10:00)
[2024-02-19] MEDS: MULTIVITAMINS (DAILY MVI) TABLET (FP) PO SCH (10:00)
[2024-02-19] MEDS: LISINOPRIL 5 MG TABLET PO SCH (10:01)
[2024-02-19] MEDS: amLODIPine BESYLATE 5 MG TABLET (FP) PO SCH (10:01)
[2024-02-19] MEDS: ASPIRIN 81 MG CHEWABLE TABLETS PO SCH (10:01)
[2024-02-19] MEDS: THIAMINE 100 MG TABLET PO SCH (10:01)
[2024-02-20 08:47] VITALS: BP 107/65; PULSE 93; RESP 18; TEMP 98.4
[2024-02-20] MEDS: chlordiazePOXIDE HCL 10 MG CAPSULE PO SCH (09:15)
[2024-02-20] MEDS ORDERED: QUEtiapine FUMARATE 100 MG TABLET (FP) PO SCH (22:00)
[2024-02-21] MEDS ORDERED: chlordiazePOXIDE HCL 10 MG CAPSULE PO SCH (10:00)
[2024-02-22] MEDS ORDERED: chlordiazePOXIDE HCL 10 MG CAPSULE PO SCH (10:00)
== END 2024-02-20 13:20 | disposition left against medical advice (07) ==
LOC: JER 20:01 → JERBED 02-15 03:10 → J4W 02-15 05:05 → J8W 02-18 18:57
PROVIDERS: ADMIT Internal Medicine; ATTEND Internal Medicine
PROC: 3E033GC Introduction of Other Therapeutic Substance into Peripheral Vein, Percutaneous Approach (ICD-10-PCS; principal; 2024-02-15)
DX: I25.10 Atherosclerotic heart disease of native coronary artery without angina pectoris (principal); I11.0 Hypertensive heart disease with heart failure; F10.10 Alcohol abuse, uncomplicated; I25.2 Old myocardial infarction; D64.9 Anemia, unspecified; F14.21 Cocaine dependence, in remission; E78.5 Hyperlipidemia, unspecified; E11.9 Type 2 diabetes mellitus without complications; R41.82 Altered mental status, unspecified; N40.0 Benign prostatic hyperplasia without lower urinary tract symptoms; Z86.73 Personal history of transient ischemic attack (TIA), and cerebral infarction without residual deficits; Z95.5 Presence of coronary angioplasty implant and graft; F17.210 Nicotine dependence, cigarettes, uncomplicated
CPT/HCPCS: 0241U-QW; 36415; 36600; 70450-TC; 71045-TC-FY; 80053; 80307; 81003; 82140; 82272; 82803; 82962; 83735; 83880; 84484; 85025; 87086; 93005; 93010; 96374; 97116-GP; 97161-GP; 99285-25; G0378

== ENCOUNTER 2024-03-22 21:16 | Inpatient (IN) | payer OTHER ==
[2024-03-22 21:33] VITALS: BMI 35.4
[2024-03-22] MEDS ORDERED: ACETAMINOPHEN 325 MG TABLET (FP) PO PRN (21:53)
[2024-03-22] MEDS ORDERED: BISMUTH SUBSALICYLATE 524 MG/30 ML PO PRN (21:53)
[2024-03-22] MEDS ORDERED: guaiFENesin 600 MG TABLET.ER (FP) PO PRN (21:53)
[2024-03-22] MEDS ORDERED: NICOTINE POLACRILEX 2 MG LOZENGE BC PRN (21:53)
[2024-03-22] MEDS ORDERED: MAG HYDROX/AL HYDROX/SIMETH 30 ML UNIT-DOSE CUP PO PRN (21:53)
[2024-03-22] MEDS ORDERED: IBUPROFEN 600 MG TABLET (FP) PO PRN (21:53)
[2024-03-22] MEDS ORDERED: BENZOCAINE/MENTHOL (CHLORASEPTIC ) LOZENGE MM PRN (21:53)
[2024-03-22] MEDS ORDERED: DICYCLOMINE HCL 10 MG CAPSULE PO PRN (21:53)
[2024-03-22] MEDS ORDERED: POLYETHYLENE GLYCOL (HEALTHYLAX) 3350 17 GM PACKET PO PRN (21:53)
[2024-03-22] MEDS ORDERED: BENZONATATE 200 MG CAPSULE PO PRN (21:53)
[2024-03-22] MEDS ORDERED: LOPERAMIDE HCL 2 MG CAPSULE PO PRN (21:53)
[2024-03-22] MEDS ORDERED: MAGNESIUM HYDROX 2400MG/30ML ORAL SUSPENSION 30 ML CUP PO PRN (21:53)
[2024-03-22] MEDS ORDERED: NALOXONE (NARCAN) HCL 4 MG/0.1 ML SPRAY NS PRN (21:53)
[2024-03-22] MEDS ORDERED: IBUPROFEN 400 MG TABLET (FP) PO PRN (21:53)
[2024-03-22] MEDS: ALBUTEROL SO4 2.5/IPRATROPIUM 0.5 INH SOL 3 ML VIAL.NEB. NEB ONE (22:17)
[2024-03-22] MEDS: TRIMETHOBENZAMIDE HCL 200MG/2ML INJ IM ONE (22:18)
[2024-03-22] MEDS: MELATONIN 5 MG TABLETS PO SCH (22:18)
[2024-03-22] MEDS: THIAMINE 100 MG TABLET PO SCH (22:18)
[2024-03-22] MEDS ORDERED: ALBUTEROL SO4 2.5/IPRATROPIUM 0.5 INH SOL 3 ML VIAL.NEB. NEB ONE (22:20)
[2024-03-22] MEDS ORDERED: MELATONIN 5 MG TABLETS ONE (22:20)
[2024-03-22] MEDS ORDERED: TRIMETHOBENZAMIDE HCL 200MG/2ML INJ IM ONE (22:20)
[2024-03-22] MEDS: hydrOXYzine PAMOATE 25 MG CAPSULE (FP) PO PRN (22:49)
[2024-03-22] MEDS: LORazepam 2 MG TABLET PO SCH (22:49)
[2024-03-23] MEDS: ASPIRIN 81 MG CHEWABLE TABLETS PO SCH (10:15)
[2024-03-23] MEDS: PANTOPRAZOLE 20 MG TABLET PO SCH (10:15)
[2024-03-23] MEDS: TAMSULOSIN HCL 0.4 MG CAP PO SCH (10:15)
[2024-03-23] MEDS: amLODIPine BESYLATE 5 MG TABLET (FP) PO SCH (10:15)
[2024-03-23] MEDS: metFORMIN HCL 500 MG TABLET (FP) PO SCH (10:16)
[2024-03-23] MEDS: PRENATAL VITAMINS W/ FOLIC ACID TABLET (FP) PO SCH (10:16)
[2024-03-23] MEDS: APIXABAN 5 MG TABLET PO SCH (10:17)
[2024-03-23] MEDS: NICOTINE 14 MG/24 HOURS TOPICAL PATCH TD SCH (10:18)
[2024-03-23] MEDS: CLOPIDOGREL BISULFATE 75 MG TABLET (FP) PO SCH (10:22)
[2024-03-23] MEDS ORDERED: methaDONE HCL 10 MG TABLET PO SCH (11:15)
[2024-03-23] MEDS: methaDONE 40 MG, methaDONE 10 MG PO SCH (11:44)
[2024-03-23] MEDS: LOSARTAN POTASSIUM 50 MG TABLET PO SCH (12:25)
[2024-03-23] MEDS: LORazepam 1 MG TABLET PO PRN (13:28)
[2024-03-23] MEDS: hydrALAZINE HCL 25 MG TABLET (FP) PO SCH (14:01)
[2024-03-23] MEDS: ACAMPROSATE CALCIUM 333 MG TABLET.DR PO SCH (14:01)
[2024-03-23] MEDS: cloNIDine HCL 0.1 MG TABLET PO SCH (14:01)
[2024-03-23] MEDS: ATORVASTATIN CA 80 MG TABLET (FP) PO SCH (22:07)
[2024-03-24] MEDS: ONDANSETRON *ODT* 4 MG TABLET SL PRN (03:14)
[2024-03-24] MEDS: LORazepam 1 MG TABLET PO SCH (05:38)
[2024-03-24] MEDS: sitaGLIPtin PHOSPHATE 50 MG TABLET PO SCH (06:18)
[2024-03-24 09:18] VITALS: BP 169/82; PULSE 96; RESP 19; TEMP 97.5
[2024-03-25] MEDS ORDERED: cloNIDine HCL 0.1 MG TABLET PO PRN
[2024-03-25] MEDS ORDERED: LORazepam 0.5 MG TABLET PO PRN
[2024-03-25] MEDS ORDERED: LORazepam 0.5 MG TABLET PO SCH (05:00)
[2024-03-25] MEDS ORDERED: methaDONE HCL 10 MG TABLET PO ONE (10:00)
[2024-03-26] MEDS ORDERED: LORazepam 0.5 MG TABLET PO ONE (05:00)
[2024-03-26] MEDS ORDERED: methaDONE HCL 10 MG TABLET PO ONE (10:00)
[2024-03-27] MEDS ORDERED: methaDONE HCL 10 MG TABLET PO ONE (10:00)
[2024-03-28] MEDS ORDERED: methaDONE HCL 10 MG TABLET PO ONE (10:00)
== END 2024-03-24 09:45 | disposition left against medical advice (07) | DRG 894 ==
LOC: YASAS 21:16 → Y3N 22:06
PROVIDERS: ADMIT Allergy & Immunology; ATTEND Allergy & Immunology
PROC: HZ2ZZZZ Detoxification Services for Substance Abuse Treatment (ICD-10-PCS; principal; 2024-03-22)
DX: F11.23 Opioid dependence with withdrawal (principal); F10.230 Alcohol dependence with withdrawal, uncomplicated; F17.210 Nicotine dependence, cigarettes, uncomplicated; I25.10 Atherosclerotic heart disease of native coronary artery without angina pectoris; I11.0 Hypertensive heart disease with heart failure; I50.9 Heart failure, unspecified; Z95.5 Presence of coronary angioplasty implant and graft; J45.909 Unspecified asthma, uncomplicated; E11.9 Type 2 diabetes mellitus without complications; Z79.84 Long term (current) use of oral hypoglycemic drugs; N40.0 Benign prostatic hyperplasia without lower urinary tract symptoms; Z86.73 Personal history of transient ischemic attack (TIA), and cerebral infarction without residual deficits; Z87.11 Personal history of peptic ulcer disease
CPT/HCPCS: 36415; 80305; 80307; 82962; 94640; 99285-25; Q0162

== ENCOUNTER 2024-04-02 08:27 | Inpatient (IN) | payer OTHER ==
[2024-04-02 08:49] VITALS: BMI 34.0
[2024-04-02] MEDS ORDERED: diazePAM CARPU-JECT 10 MG/2 ML DISP.SYRIN ONE ×2 (09:42→11:12)
[2024-04-02] MEDS ORDERED: ONDANSETRON 4 MG/2 ML VIAL ONE (09:42)
[2024-04-02] MEDS ORDERED: FAMOTIDINE 20 MG/50 ML IVPB 20 MG/50 ML MG IVPB ONE (09:42)
[2024-04-02] MEDS: FAMOTIDINE 20 MG/50 ML IVPB 20 MG in PREMIX 50 IVPB ONE (10:04)
[2024-04-02] MEDS: diazePAM CARPU-JECT 10 MG/2 ML DISP.SYRIN IVPUSH ONE ×2 (10:04→11:28)
[2024-04-02] MEDS: ONDANSETRON 4 MG/2 ML VIAL IVPUSH ONE (10:04)
[2024-04-02 10:08] LABS: BASO % 0.2 % (0-2.0); HEMATOCRIT 31.2 % (35.4-49); HEMOGLOBIN 9.4 GM/dL (11.7-16.9); LYMPH % 3.4 % (8-40); MCH 24.6 pg (25.7-33.7); MCHC 30.2 g/dl (32.0-35.9); MEAN CELL VOLUME 81.2 fl (80-96); MEAN PLT VOLUME 6.9 fl (7.5-11.1); NEUT % 89.4 % (42.8-82.8); PLATELET COUNT 271 10^3/uL (134-434); RBC 3.84 M/mm3 (4.00-5.60); RDW 20.1 % (11.9-15.9); WHITE BLOOD COUNT 13.2 K/mm3 (4.0-10.0)
[2024-04-02 10:14] LABS: VENOUS BASE EXCESS -4.4 mmol/L (-2-2); VENOUS O2 SATURATION 54.1 % (70-80); VENOUS PCO2 34.1 mmHg (38-52); VENOUS PH 7.386 (7.310-7.410)
[2024-04-02 10:32] LABS: POTASSIUM 3.8 mmol/L (3.5-5.1)
[2024-04-02 10:34] LABS: ALBUMIN 3.6 g/dl (3.4-5.0); BLOOD UREA NITROGEN 20.6 mg/dL (7-18); CALCIUM 8.9 mg/dL (8.5-10.1)
[2024-04-02 10:38] LABS: CREATININE 1.1 mg/dL (0.55-1.3)
[2024-04-02 10:39] LABS: BILIRUBIN,TOTAL 1.1 mg/dL (0.2-1); TOT PROT 8.1 g/dl (6.4-8.2)
[2024-04-02] MEDS: SODIUM CHLORIDE 500 ML IV STA (11:28)
[2024-04-02] MEDS ORDERED: ACETAMINOPHEN INJECTION 100 ML ONE (11:33)
[2024-04-02] MEDS: ACETAMINOPHEN 1000 MG/100 ML BAG IVPB ONE (11:38)
[2024-04-02 12:41] LABS: HIV INTERPRETATION NEGATIVE (NEGATIVE)
[2024-04-02] MEDS ORDERED: APIXABAN 5 MG TABLET PO SCH (22:00)
[2024-04-02] MEDS: CEFTRIAXONE 1 G/50 ML PREMIX 50 ML IVPB SCH (22:11)
[2024-04-02] MEDS: ATORVASTATIN CA 80 MG TABLET (FP) PO SCH (22:12)
[2024-04-02] MEDS: chlordiazePOXIDE 5 MG CAPSULE PO PRN (22:14)
[2024-04-02] MEDS: AZITHROMYCIN IVPB 500 MG/250 ML BAG IVPB ONE (23:24)
[2024-04-03] MEDS: ACETAMINOPHEN 500 MG TABLET (FP) PO ONE (00:39)
[2024-04-03] MEDS: traMADol HCL 50 MG TABLET PO ONE (01:57)
[2024-04-03 08:43] LABS: BASO % 0.9 % (0-2.0); EOS % 0.7 % (0-4.5); HEMATOCRIT 31.7 % (35.4-49); HEMOGLOBIN 10.3 GM/dL (11.7-16.9); LYMPH % 11.4 % (8-40); MCHC 32.6 g/dl (32.0-35.9); MEAN CELL VOLUME 79.7 fl (80-96); MEAN PLT VOLUME 7.1 fl (7.5-11.1); MONO % 5.5 % (3.8-10.2); NEUT % 81.5 % (42.8-82.8); PLATELET COUNT 268 10^3/uL (134-434); RBC 3.98 M/mm3 (4.00-5.60); RDW 20.6 % (11.9-15.9); WHITE BLOOD COUNT 12.4 K/mm3 (4.0-10.0)
[2024-04-03 09:03] LABS: POTASSIUM 3.6 mmol/L (3.5-5.1)
[2024-04-03 09:11] LABS: CREATININE 1.1 mg/dL (0.55-1.3)
[2024-04-03 09:12] LABS: CALCIUM 9.1 mg/dL (8.5-10.1)
[2024-04-03 09:13] LABS: ALBUMIN 3.6 g/dl (3.4-5.0); BLOOD UREA NITROGEN 15.3 mg/dL (7-18)
[2024-04-03 09:14] LABS: BILIRUBIN,TOTAL 1.2 mg/dL (0.2-1)
[2024-04-03 09:16] LABS: TOT PROT 8.3 g/dl (6.4-8.2)
[2024-04-03 09:34] LABS: ANISOCYTOSIS 2+; MACROCYTOSIS 0; OVALOCYTE 1+
[2024-04-03] MEDS: THIAMINE 100 MG TABLET PO SCH (10:28)
[2024-04-03] MEDS: FOLIC ACID 1 MG TABLET (FP) PO SCH (10:28)
[2024-04-03] MEDS: TAMSULOSIN HCL 0.4 MG CAP PO SCH (10:28)
[2024-04-03] MEDS: CLOPIDOGREL BISULFATE 75 MG TABLET (FP) PO SCH (10:28)
[2024-04-03] MEDS: amLODIPine BESYLATE 5 MG TABLET (FP) PO SCH (10:29)
[2024-04-03] MEDS: ENOXAPARIN NA (PORCINE) 40 MG/0.4 ML DISP.SYRIN SQ SCH (10:29)
[2024-04-03] MEDS: ASPIRIN 81 MG CHEWABLE TABLETS PO SCH (10:29)
[2024-04-03] MEDS: AZITHROMYCIN IVPB 250 MG in DEXTROSE 5%-WATER - 250 ML IVPB SCH (12:30)
[2024-04-03] MEDS: MAGNESIUM CITRATE 300 ML BOTTLE PO SCH (13:58)
[2024-04-03] MEDS: hydrALAZINE HCL 25 MG TABLET (FP) PO SCH (13:58)
[2024-04-03] MEDS: INSULIN ASPART SLIDING SCALE (NOVOLOG) 1 VIAL SQ SCH (16:15)
[2024-04-03] MEDS: metFORMIN HCL 500 MG TABLET (FP) PO SCH (16:15)
[2024-04-03] MEDS: CEFTRIAXONE 1 G/50 ML PREMIX 50 ML IVPB SCH (17:07)
[2024-04-03] MEDS: FERROUS SO4 325 MG TABLET (FP) PO SCH (17:22)
[2024-04-03] MEDS: methaDONE HCL 40 MG DISPERSABLE TABLET PO SCH (18:19)
[2024-04-03] MEDS ORDERED: QUEtiapine FUMARATE 100 MG TABLET (FP) ONE (21:25)
[2024-04-03] MEDS: PANTOPRAZOLE 40 MG TABLET PO SCH (21:29)
[2024-04-03] MEDS: QUEtiapine FUMARATE 300 MG TABLET PO SCH (21:30)
[2024-04-04] MEDS ORDERED: methaDONE 40 MG, methaDONE 10 MG PO SCH (06:00)
[2024-04-04] MEDS: sitaGLIPtin PHOSPHATE 50 MG TABLET PO SCH (06:32)
[2024-04-04 09:00] LABS: BASO % 0.4 % (0-2.0); EOS % 3.4 % (0-4.5); HEMATOCRIT 30.3 % (35.4-49); HEMOGLOBIN 9.5 GM/dL (11.7-16.9); MCH 25.2 pg (25.7-33.7); MCHC 31.4 g/dl (32.0-35.9); MEAN CELL VOLUME 80.4 fl (80-96); MEAN PLT VOLUME 7.2 fl (7.5-11.1); MONO % 9.1 % (3.8-10.2); NEUT % 77.1 % (42.8-82.8); PLATELET COUNT 244 10^3/uL (134-434); RBC 3.77 M/mm3 (4.00-5.60); RDW 20.2 % (11.9-15.9); WHITE BLOOD COUNT 7.7 K/mm3 (4.0-10.0)
[2024-04-04 09:11] LABS: POTASSIUM 3.4 mmol/L (3.5-5.1)
[2024-04-04 09:15] LABS: CALCIUM 8.5 mg/dL (8.5-10.1)
[2024-04-04 09:16] LABS: ALBUMIN 3.2 g/dl (3.4-5.0); BLOOD UREA NITROGEN 15.8 mg/dL (7-18)
[2024-04-04 09:20] LABS: BILIRUBIN,TOTAL 0.8 mg/dL (0.2-1); CREATININE 1.2 mg/dL (0.55-1.3); TOT PROT 7.4 g/dl (6.4-8.2)
[2024-04-04] MEDS: POLYETHYLENE GLYCOL (HEALTHYLAX) 3350 17 GM PACKET PO SCH (09:51)
[2024-04-04] MEDS: ASCORBIC ACID 500 MG TABLET (FP) PO SCH (09:51)
[2024-04-04] MEDS: HYDROCHLOROTHIAZIDE 12.5 MG CAPSULE (FP) PO SCH (09:52)
[2024-04-04] MEDS: LOSARTAN POTASSIUM 50 MG TABLET PO SCH (09:53)
[2024-04-04] MEDS ORDERED: PATIENT'S OWN MEDICATION (NON-FORMULARY) (Metformin Hcl [Metformin Er Osmotic] 1,000 MG Ta PO SCH (10:00)
[2024-04-04] MEDS: POTASSIUM CHLORIDE ORAL LIQUID 20 MEQ/15 ML PO ONE (16:59)
[2024-04-04] MEDS ORDERED: QUEtiapine FUMARATE 100 MG TABLET (FP) ONE (21:03)
[2024-04-05 09:40] LABS: BASO % 0.5 % (0-2.0); EOS % 4.8 % (0-4.5); HEMATOCRIT 29.8 % (35.4-49); HEMOGLOBIN 9.4 GM/dL (11.7-16.9); LYMPH % 15.9 % (8-40); MCH 25.4 pg (25.7-33.7); MCHC 31.6 g/dl (32.0-35.9); MEAN CELL VOLUME 80.2 fl (80-96); MEAN PLT VOLUME 7.2 fl (7.5-11.1); MONO % 12.7 % (3.8-10.2); NEUT % 66.1 % (42.8-82.8); PLATELET COUNT 251 10^3/uL (134-434); RBC 3.72 M/mm3 (4.00-5.60); RDW 20.2 % (11.9-15.9); WHITE BLOOD COUNT 7.1 K/mm3 (4.0-10.0)
[2024-04-05 09:52] LABS: POTASSIUM 3.8 mmol/L (3.5-5.1)
[2024-04-05 09:55] LABS: ALBUMIN 3.1 g/dl (3.4-5.0); BLOOD UREA NITROGEN 20.3 mg/dL (7-18); CALCIUM 9.4 mg/dL (8.5-10.1)
[2024-04-05 09:59] LABS: CREATININE 1.4 mg/dL (0.55-1.3)
[2024-04-05 10:00] LABS: BILIRUBIN,TOTAL 0.7 mg/dL (0.2-1); TOT PROT 7.2 g/dl (6.4-8.2)
[2024-04-05] MEDS: CEFTRIAXONE 1 G/50 ML PREMIX 50 ML IVPB SCH (14:24)
[2024-04-05] MEDS: AZITHROMYCIN IVPB 500 MG/250 ML BAG IVPB SCH (14:24)
[2024-04-05 18:15] VITALS: RESP 18
[2024-04-05] MEDS ORDERED: QUEtiapine FUMARATE 100 MG TABLET (FP) ONE (20:57)
[2024-04-06 11:51] LABS: POTASSIUM 3.8 mmol/L (3.5-5.1)
[2024-04-06 11:53] LABS: HEMOGLOBIN 9.6 GM/dL (11.7-16.9); MCH 25.1 pg (25.7-33.7); MCHC 31.1 g/dl (32.0-35.9); MEAN CELL VOLUME 80.7 fl (80-96); MEAN PLT VOLUME 7.6 fl (7.5-11.1); PLATELET COUNT 286 10^3/uL (134-434); RBC 3.85 M/mm3 (4.00-5.60); RDW 20.2 % (11.9-15.9); WHITE BLOOD COUNT 6.7 K/mm3 (4.0-10.0)
[2024-04-06 11:57] LABS: CALCIUM 9.5 mg/dL (8.5-10.1)
[2024-04-06 11:58] LABS: ALBUMIN 3.2 g/dl (3.4-5.0); BLOOD UREA NITROGEN 17.9 mg/dL (7-18)
[2024-04-06 12:02] LABS: CREATININE 1.4 mg/dL (0.55-1.3)
[2024-04-06 12:03] LABS: BILIRUBIN,TOTAL 0.5 mg/dL (0.2-1); TOT PROT 7.8 g/dl (6.4-8.2)
[2024-04-06] MEDS ORDERED: QUEtiapine FUMARATE 100 MG TABLET (FP) ONE ×2 (20:52→21:52)
[2024-04-07] MEDS: CEFUROXIME AXETIL 500 MG TABLET PO SCH (09:15)
[2024-04-07 10:34] LABS: BASO % 0.7 % (0-2.0); EOS % 4.6 % (0-4.5); HEMATOCRIT 31.6 % (35.4-49); HEMOGLOBIN 10.1 GM/dL (11.7-16.9); LYMPH % 15.5 % (8-40); MCH 25.5 pg (25.7-33.7); MEAN CELL VOLUME 79.9 fl (80-96); MEAN PLT VOLUME 7.6 fl (7.5-11.1); MONO % 11.2 % (3.8-10.2); PLATELET COUNT 307 10^3/uL (134-434); RBC 3.96 M/mm3 (4.00-5.60); RDW 20.4 % (11.9-15.9)
[2024-04-07 11:30] LABS: POTASSIUM 3.7 mmol/L (3.5-5.1)
[2024-04-07 11:36] LABS: ALBUMIN 3.3 g/dl (3.4-5.0); BLOOD UREA NITROGEN 16.2 mg/dL (7-18); CALCIUM 10.1 mg/dL (8.5-10.1)
[2024-04-07 11:39] LABS: CREATININE 1.4 mg/dL (0.55-1.3)
[2024-04-07 11:41] LABS: TOT PROT 7.7 g/dl (6.4-8.2)
[2024-04-07 11:43] LABS: BILIRUBIN,TOTAL 0.5 mg/dL (0.2-1)
[2024-04-07 12:59] VITALS: BP 124/64; PULSE 101; TEMP 98.2
== END 2024-04-07 13:08 | disposition home health service (06) | DRG 896 ==
LOC: JER 08:27 → JERBED 15:59 → J5S 17:39
PROVIDERS: ADMIT Internal Medicine; ATTEND Internal Medicine
DX: F10.239 Alcohol dependence with withdrawal, unspecified (principal); J18.9 Pneumonia, unspecified organism; I13.0 Hypertensive heart and chronic kidney disease with heart failure and stage 1 through stage 4 chronic kidney disease, or unspecified chronic kidney disease; F11.20 Opioid dependence, uncomplicated; I50.32 Chronic diastolic (congestive) heart failure; N18.4 Chronic kidney disease, stage 4 (severe); K70.31 Alcoholic cirrhosis of liver with ascites; E11.22 Type 2 diabetes mellitus with diabetic chronic kidney disease; J45.909 Unspecified asthma, uncomplicated; E78.5 Hyperlipidemia, unspecified; N40.0 Benign prostatic hyperplasia without lower urinary tract symptoms; I25.10 Atherosclerotic heart disease of native coronary artery without angina pectoris; K59.00 Constipation, unspecified; Z95.5 Presence of coronary angioplasty implant and graft; E66.9 Obesity, unspecified; Z68.34 Body mass index [BMI] 34.0-34.9, adult
CPT/HCPCS: 0241U-QW; 36415; 71045-TC-FY; 71275-TC; 74177-TC; 80053; 80061; 82010; 82105; 82803; 82962; 83036; 83690; 84439; 84443; 85025; 85027; 86803; 87389; 87522; 93005; 93010; 93306-TC; 93970-TC; 99285-25; J0131; Q9967

== ENCOUNTER 2024-04-11 12:21 | Inpatient (IN) | payer OTHER ==
[2024-04-11 13:20] VITALS: BMI 34.0
[2024-04-11] MEDS ORDERED: diazePAM 5 MG TABLET ONE (13:35)
[2024-04-11] MEDS ORDERED: propRANOLol HCL 10 MG TABLET ONE (13:35)
[2024-04-11] MEDS ORDERED: ONDANSETRON *ODT* 4 MG TABLET SL PRN (13:36)
[2024-04-11] MEDS ORDERED: P-EPHED 60MG/TRIPROLIDI 2.5MG TABLET PO PRN (13:36)
[2024-04-11] MEDS ORDERED: BENZOCAINE/MENTHOL (CHLORASEPTIC ) LOZENGE MM PRN (13:36)
[2024-04-11] MEDS ORDERED: LOPERAMIDE HCL 2 MG CAPSULE PO PRN (13:36)
[2024-04-11] MEDS ORDERED: BENZONATATE 200 MG CAPSULE PO PRN (13:36)
[2024-04-11] MEDS ORDERED: POLYETHYLENE GLYCOL (HEALTHYLAX) 3350 17 GM PACKET PO PRN (13:36)
[2024-04-11] MEDS ORDERED: guaiFENesin 600 MG TABLET.ER (FP) PO PRN (13:36)
[2024-04-11] MEDS ORDERED: NICOTINE POLACRILEX 2 MG GUM BUC PRN (13:36)
[2024-04-11] MEDS ORDERED: NICOTINE POLACRILEX 2 MG LOZENGE BC PRN (13:36)
[2024-04-11] MEDS ORDERED: MAGNESIUM HYDROX 2400MG/30ML ORAL SUSPENSION 30 ML CUP PO PRN (13:36)
[2024-04-11] MEDS ORDERED: NALOXONE (NARCAN) HCL 4 MG/0.1 ML SPRAY NS PRN (13:36)
[2024-04-11] MEDS: diazePAM 5 MG TABLET PO ONE (13:37)
[2024-04-11] MEDS ORDERED: MAG HYDROX/AL HYDROX/SIMETH 30 ML UNIT-DOSE CUP ONE (15:16)
[2024-04-11] MEDS: MAG HYDROX/AL HYDROX/SIMETH 30 ML UNIT-DOSE CUP PO PRN (15:19)
[2024-04-11] MEDS: diazePAM 5 MG TABLET PO SCH (18:15)
[2024-04-11] MEDS: INSULIN ASPART SLIDING SCALE (NOVOLOG) 1 VIAL SQ SCH (18:34)
[2024-04-11] MEDS: FERROUS SO4 325 MG TABLET (FP) PO SCH (18:38)
[2024-04-11] MEDS: diazePAM 5 MG TABLET PO PRN (18:38)
[2024-04-11] MEDS: ATORVASTATIN CA 80 MG TABLET (FP) PO SCH (22:36)
[2024-04-11] MEDS: THIAMINE 100 MG TABLET PO SCH (22:36)
[2024-04-11] MEDS: hydrALAZINE HCL 25 MG TABLET (FP) PO SCH (22:36)
[2024-04-11] MEDS: MELATONIN 5 MG TABLETS PO SCH (22:39)
[2024-04-11] MEDS: CEFUROXIME AXETIL 250 MG TABLET PO SCH (23:03)
[2024-04-12] MEDS: CEFUROXIME AXETIL 500 MG TABLET PO SCH (00:53)
[2024-04-12] MEDS: TAMSULOSIN HCL 0.4 MG CAP PO SCH (07:31)
[2024-04-12] MEDS: sitaGLIPtin PHOSPHATE 50 MG TABLET PO SCH (07:31)
[2024-04-12] MEDS: PRENATAL VITAMINS W/ FOLIC ACID TABLET (FP) PO SCH (09:34)
[2024-04-12] MEDS: LOSARTAN POTASSIUM 50 MG TABLET PO SCH (09:34)
[2024-04-12] MEDS: CLOPIDOGREL BISULFATE 75 MG TABLET (FP) PO SCH (09:34)
[2024-04-12] MEDS: ASPIRIN 81 MG CHEWABLE TABLETS PO SCH (09:34)
[2024-04-12] MEDS: amLODIPine BESYLATE 5 MG TABLET (FP) PO SCH (09:34)
[2024-04-12] MEDS: HYDROCHLOROTHIAZIDE 12.5 MG CAPSULE (FP) PO SCH (09:34)
[2024-04-12] MEDS: FOLIC ACID 1 MG TABLET (FP) PO SCH (09:35)
[2024-04-12] MEDS: THIAMINE 100 MG TABLET PO SCH (09:35)
[2024-04-12 12:00] LABS: HEMATOCRIT 34.9 % (35.4-49); HEMOGLOBIN 11.2 GM/dL (11.7-16.9); MCH 25.3 pg (25.7-33.7); MEAN CELL VOLUME 79.1 fl (80-96); MEAN PLT VOLUME 7.5 fl (7.5-11.1); PLATELET COUNT 569 10^3/uL (134-434); RBC 4.41 M/mm3 (4.00-5.60); RDW 21.5 % (11.9-15.9); WHITE BLOOD COUNT 8.5 K/mm3 (4.0-10.0)
[2024-04-12 12:01] LABS: CHLORIDE 94 mmol/L (98-107); POTASSIUM 4.4 mmol/L (3.5-5.1); SODIUM 130 mmol/L (136-145)
[2024-04-12 12:03] LABS: ALBUMIN 3.8 g/dl (3.4-5.0); ANION GAP 11 mmol/L (4-13); BLOOD UREA NITROGEN 21.6 mg/dL (7-18); CALCIUM 9.8 mg/dL (8.5-10.1); CO2 25 mmol/L (21-32); GLUCOSE,RANDOM 125 mg/dL (74-106)
[2024-04-12 12:06] LABS: CREATININE 1.2 mg/dL (0.55-1.3); SGOT/AST 22 U/L (15-37); SGPT/ALT 31 U/L (13-61)
[2024-04-12 12:08] LABS: BILIRUBIN,TOTAL 0.6 mg/dL (0.2-1); TOT PROT 8.6 g/dl (6.4-8.2)
[2024-04-12 12:09] LABS: ALK PHOS 105 U/L (45-117)
[2024-04-12] MEDS ORDERED: INSULIN (NOVOLOG) ASPART 100 UNITS/ML 10ML VIAL ONE (16:42)
[2024-04-12] MEDS: PANTOPRAZOLE 40 MG TABLET PO SCH (17:24)
[2024-04-13] MEDS: ACETAMINOPHEN 325 MG TABLET (FP) PO PRN (01:26)
[2024-04-13] MEDS: diazePAM 5 MG TABLET PO SCH (05:27)
[2024-04-13] MEDS: methaDONE HCL 10 MG TABLET PO ONE (13:36)
[2024-04-13] MEDS ORDERED: SUVOREXANT 10 MG TABLET PO PRN (22:00)
[2024-04-14] MEDS: diazePAM 5 MG TABLET PO SCH (05:41)
[2024-04-14] MEDS ORDERED: methaDONE HCL 10 MG TABLET PO SCH (06:00)
[2024-04-14 09:10] VITALS: BP 105/77; PULSE 106; RESP 18; TEMP 97.6
[2024-04-15] MEDS ORDERED: diazePAM 5 MG TABLET PO ONE (06:00)
== END 2024-04-14 10:30 | disposition home or self-care (01) | DRG 897 ==
LOC: YASAS 12:21 → Y6N 17:23
PROVIDERS: ADMIT Allergy & Immunology; ATTEND Allergy & Immunology
PROC: HZ2ZZZZ Detoxification Services for Substance Abuse Treatment (ICD-10-PCS; principal; 2024-04-13)
DX: F10.230 Alcohol dependence with withdrawal, uncomplicated (principal); F17.210 Nicotine dependence, cigarettes, uncomplicated; D64.9 Anemia, unspecified; I25.10 Atherosclerotic heart disease of native coronary artery without angina pectoris; I11.0 Hypertensive heart disease with heart failure; I50.9 Heart failure, unspecified; E78.5 Hyperlipidemia, unspecified; E11.9 Type 2 diabetes mellitus without complications; Z79.84 Long term (current) use of oral hypoglycemic drugs; J45.909 Unspecified asthma, uncomplicated; K21.9 Gastro-esophageal reflux disease without esophagitis; N40.0 Benign prostatic hyperplasia without lower urinary tract symptoms; R26.89 Other abnormalities of gait and mobility; Z99.89 Dependence on other enabling machines and devices
CPT/HCPCS: 36415; 80053; 80305; 80307; 82962; 85027; 86780; 93005; 93010

== ENCOUNTER 2024-07-18 05:09 | Inpatient (IN) | payer OTHER ==
[2024-07-18 05:41] VITALS: BMI 30.7
[2024-07-18] MEDS ORDERED: ACETAMINOPHEN INJECTION 100 ML ONE (05:44)
[2024-07-18] MEDS ORDERED: FAMOTIDINE 20 MG/50 ML IVPB 20 MG/50 ML MG IVPB ONE (05:44)
[2024-07-18] MEDS ORDERED: LIDOCAINE 2.5%/PRILOCAINE 2.5% (5 Gram/TUBE) TP ONE (06:09)
[2024-07-18] MEDS: LIDOCAINE 2.5%/PRILOCAINE 2.5% 30 GRAM TUBE TP ONE (06:14)
[2024-07-18 07:53] LABS: ABSOLUTE IMMATURE GRANULOCYTES 0.01 x10^3/uL (0.0-0.031); BASOPHILS # 0.04 x10^3/uL (0.01-0.08); EOSINOPHIL % 5.7 % (0.8-7.0); EOSINOPHILS # 0.32 x10^3/uL (0.04-0.54); HEMATOCRIT 33.4 % (40.1-51.0); HEMOGLOBIN 10.2 g/dL (13.7-17.5); MCHC 30.5 g/dl (32.3-36.5); MEAN CELL VOLUME 83.1 fl (79.0-92.2); MEAN PLT VOLUME 9.2 fl (9.4-12.4); MONOCYTE # 0.56 x10^3/uL (0.30-0.82); PLATELET COUNT 352 x10^3/uL (163-337); RDW 18.4 % (12.2-16.6)
[2024-07-18 08:12] LABS: POTASSIUM 4.9 mmol/L (3.5-5.1)
[2024-07-18 08:14] LABS: CALCIUM 9.7 mg/dL (8.5-10.1)
[2024-07-18 08:15] LABS: ALBUMIN 3.6 g/dl (3.4-5.0); BLOOD UREA NITROGEN 44.2 mg/dL (7-18); MAGNESIUM 2.6 mg/dL (1.8-2.4)
[2024-07-18 08:18] LABS: CREATININE 2.1 mg/dL (0.55-1.3)
[2024-07-18 08:19] LABS: TOT PROT 8.5 g/dl (6.4-8.2)
[2024-07-18 08:25] LABS: BILIRUBIN,TOTAL 0.5 mg/dL (0.2-1)
[2024-07-18] MEDS: ACETAMINOPHEN 1000 MG/100 ML BAG IVPB ONE (10:38)
[2024-07-18] MEDS: FAMOTIDINE 20 MG/50 ML IVPB 20 MG/50 ML MG IVPB ONE (10:39)
[2024-07-18] MEDS: LACTATED RINGERS SOLUTION 1000 ML INFUS.BAG IV ONE (10:39)
[2024-07-18] MEDS: INSULIN ASPART SLIDING SCALE (NOVOLOG) 1 VIAL SQ SCH (12:27)
[2024-07-18] MEDS: CLOPIDOGREL BISULFATE 75 MG TABLET (FP) PO SCH (13:08)
[2024-07-18] MEDS: TAMSULOSIN HCL 0.4 MG CAP PO SCH (13:08)
[2024-07-18] MEDS: amLODIPine BESYLATE 5 MG TABLET (FP) PO SCH (13:15)
[2024-07-18] MEDS: PANTOPRAZOLE 40 MG TABLET PO SCH (13:15)
[2024-07-18] MEDS: FERROUS SO4 325 MG TABLET (FP) PO SCH (13:15)
[2024-07-18] MEDS: metoPROLOL SUCCINATE 25 MG TAB.SR.24H (FP) PO SCH (14:28)
[2024-07-18] MEDS: HEPARIN NA (PORCINE) 5,000 UNITS/ML 1ML VIAL SQ SCH (14:29)
[2024-07-18] MEDS: hydrALAZINE HCL 25 MG TABLET (FP) PO SCH (14:53)
[2024-07-18] MEDS: metFORMIN HCL 500 MG TABLET (FP) PO SCH (17:51)
[2024-07-18] MEDS ORDERED: QUEtiapine FUMARATE 100 MG TABLET (FP) ONE (21:08)
[2024-07-18] MEDS: ATORVASTATIN CA 80 MG TABLET (FP) PO SCH (21:09)
[2024-07-18] MEDS: QUEtiapine FUMARATE 300 MG TABLET PO SCH (21:09)
[2024-07-18] MEDS: ENOXAPARIN NA (PORCINE) 100 MG/1 ML DISP.SYRIN SQ SCH (21:51)
[2024-07-19] MEDS: sitaGLIPtin PHOSPHATE 50 MG TABLET PO SCH (06:14)
[2024-07-19] MEDS: FOLIC ACID 1 MG TABLET (FP) PO SCH (10:30)
[2024-07-19] MEDS: ASPIRIN 81 MG CHEWABLE TABLETS PO SCH (10:32)
[2024-07-19] MEDS: HYDROCHLOROTHIAZIDE 12.5 MG CAPSULE (FP) PO SCH (10:32)
[2024-07-19] MEDS: THIAMINE 100 MG TABLET PO SCH (10:32)
[2024-07-19] MEDS: LOSARTAN POTASSIUM 50 MG TABLET PO SCH (10:38)
[2024-07-19] MEDS: methaDONE 80 MG, methaDONE 10 MG PO SCH (10:47)
[2024-07-19] MEDS ORDERED: QUEtiapine FUMARATE 100 MG TABLET (FP) ONE (21:37)
[2024-07-20 12:38] LABS: ABSOLUTE IMMATURE GRANULOCYTES 0.01 x10^3/uL (0.0-0.031); BASOPHILS # 0.04 x10^3/uL (0.01-0.08); EOSINOPHIL % 5.1 % (0.8-7.0); EOSINOPHILS # 0.26 x10^3/uL (0.04-0.54); HEMATOCRIT 35.2 % (40.1-51.0); HEMOGLOBIN 10.5 g/dL (13.7-17.5); MCHC 29.8 g/dl (32.3-36.5); MONOCYTE # 0.51 x10^3/uL (0.30-0.82); PLATELET COUNT 322 x10^3/uL (163-337)
[2024-07-20 13:01] LABS: POTASSIUM 4.4 mmol/L (3.5-5.1)
[2024-07-20 13:02] LABS: CALCIUM 9.3 mg/dL (8.5-10.1)
[2024-07-20 13:03] LABS: BLOOD UREA NITROGEN 29.8 mg/dL (7-18)
[2024-07-20 13:06] LABS: CREATININE 1.5 mg/dL (0.55-1.3)
[2024-07-20 13:07] LABS: ALBUMIN 3.7 g/dl (3.4-5.0)
[2024-07-20 13:08] LABS: BILIRUBIN,TOTAL 0.2 mg/dL (0.2-1); TOT PROT 8.3 g/dl (6.4-8.2)
[2024-07-20] MEDS ORDERED: QUEtiapine FUMARATE 100 MG TABLET (FP) ONE (21:07)
[2024-07-21 11:25] LABS: ABSOLUTE IMMATURE GRANULOCYTES 0.02 x10^3/uL (0.0-0.031); BASOPHILS # 0.05 x10^3/uL (0.01-0.08); EOSINOPHIL % 5.5 % (0.8-7.0); EOSINOPHILS # 0.29 x10^3/uL (0.04-0.54); HEMATOCRIT 33.7 % (40.1-51.0); HEMOGLOBIN 10.5 g/dL (13.7-17.5); MCHC 31.2 g/dl (32.3-36.5); MEAN CELL VOLUME 82.8 fl (79.0-92.2); MONOCYTE # 0.59 x10^3/uL (0.30-0.82); MONOCYTE % 11.1 % (5.3-12.2); PLATELET COUNT 336 x10^3/uL (163-337); RDW 17.7 % (12.2-16.6)
[2024-07-21 11:43] LABS: POTASSIUM 4.3 mmol/L (3.5-5.1)
[2024-07-21 11:45] LABS: ALBUMIN 3.6 g/dl (3.4-5.0); CALCIUM 9.8 mg/dL (8.5-10.1)
[2024-07-21 11:46] LABS: BLOOD UREA NITROGEN 26.1 mg/dL (7-18)
[2024-07-21 11:49] LABS: CREATININE 1.5 mg/dL (0.55-1.3)
[2024-07-21 11:50] LABS: BILIRUBIN,TOTAL 0.4 mg/dL (0.2-1)
[2024-07-21] MEDS ORDERED: QUEtiapine FUMARATE 100 MG TABLET (FP) ONE (21:24)
[2024-07-22] MEDS ORDERED: REGADENOSON 0.4 MG/5 ML PRE-FILLED SYRINGE IVPUSH ONE (09:51)
[2024-07-22] MEDS: REGADENOSON 0.4 MG/5 ML PRE-FILLED SYRINGE IVPUSH ONE (10:46)
[2024-07-22] MEDS: ACETAMINOPHEN 325 MG TABLET (FP) PO ONE ×2 (14:10→22:06)
[2024-07-22] MEDS ORDERED: QUEtiapine FUMARATE 100 MG TABLET (FP) ONE (21:09)
[2024-07-23] MEDS: ACETAMINOPHEN 325 MG TABLET (FP) PO PRN (15:08)
[2024-07-23] MEDS ORDERED: QUEtiapine FUMARATE 100 MG TABLET (FP) ONE (21:27)
[2024-07-23 21:33] VITALS: BP 141/70; PULSE 75; RESP 18; TEMP 97.8
== END 2024-07-23 23:39 | disposition short-term general hospital (02) | DRG 281 ==
LOC: JER 05:09 → JERBED 08:38 → J4S 10:59
PROVIDERS: ADMIT Internal Medicine; ATTEND Internal Medicine
DX: I21.4 Non-ST elevation (NSTEMI) myocardial infarction (principal); F11.20 Opioid dependence, uncomplicated; N17.9 Acute kidney failure, unspecified; I50.32 Chronic diastolic (congestive) heart failure; I13.0 Hypertensive heart and chronic kidney disease with heart failure and stage 1 through stage 4 chronic kidney disease, or unspecified chronic kidney disease; N18.4 Chronic kidney disease, stage 4 (severe); R79.89 Other specified abnormal findings of blood chemistry; I25.10 Atherosclerotic heart disease of native coronary artery without angina pectoris; E78.5 Hyperlipidemia, unspecified; E11.9 Type 2 diabetes mellitus without complications; D64.9 Anemia, unspecified; K74.60 Unspecified cirrhosis of liver; N40.0 Benign prostatic hyperplasia without lower urinary tract symptoms; Z95.5 Presence of coronary angioplasty implant and graft
CPT/HCPCS: 0241U-QW; 36415; 71045-TC-FY; 78452-TC; 80053; 82550; 82553; 82962; 83036; 83735; 84484; 85025; 93005; 93010; 93017; 93306-TC; 99285-25; A9502; J0131; J1644; J2785